=== PATIENT | female | born 1940 | race Caucasian/White ===

== ENCOUNTER → 2022-03-04 12:08 | Outpatient (CLI) | payer MEDICARE, SELFPAY ==
--- NOTE | 2022-03-04 12:40 | XR_ITS ---
FINAL REPORT CLINICAL HISTORY: SOB FINDINGS: Two views of the chest were obtained. The heart size and pulmonary vascularity are within normal limits. The mediastinum is normal. There is mild atelectasis or scarring at the left lung base. There is no pneumothorax. The bony thorax is intact. IMPRESSION: Mild left base atelectasis or scarring. Reviewed, Interpreted and Dictated by Marquise Anders III, MD Transcribed by Tanner Adams Authenticated and [facility]
== END ==
PROVIDERS: PCP Nurse Practitioner Family; Visit Provider Nurse Practitioner Family
DX: R06.02 Shortness of breath (principal)
CPT/HCPCS: 71046

== ENCOUNTER → 2022-03-09 13:12 | Outpatient (CLI) | payer MEDICARE, SELFPAY ==
--- NOTE | 2022-03-09 | CA_ITS ---
APPROVED REPORT EXAM: Comprehensive 2D, Doppler, and color-flow Echocardiogram Medical File Clerk: Sylwia Wyman RVT Ht: 5 ft 0 in Wt: 124lbs BSA: 1.52 BP: 121/69 mmHg Indications: SOA,PALPS,CP,HTN 2D Dimensions LVOT 2.25 cm (M/F) 1.5-2.5 LA Volume 15.10 mL LA Volume Index 9.93 mL/m2 (M/F) 16-34 M-Mode Dimensions RVDd 2.65 cm (0.9-2.6) LA Diam 2.85 cm (1.9-4.0) LVDd 3.68 cm (3.5-5.7) Ao Diam 2.88 cm (2.0-3.7) LVDs 2.61 cm (3.5-5.7) IVSd 0.64 cm (0.6-1.1) PWd 0.46 cm (0.6-1.1) EF (Teich) 56.80% FS 29.10% EDV (Teich) 57.40 mL TAPSE 1.47 (<1.7) ESV (Teich) 24.80 mL LV Diastology E Decel Time 253.00 (160-240 msec) E/A Ratio 0.6 MED E' 4.70 (< 7 cm/sec) E'/MED E' Ratio 12.40 (>14) LAT E' 6.00 (<10 cm/sec) E/LAT E' Ratio 9.72 (>14) Aortic Valve AI PHT 2357.00 ms AO Peak GR. 4.20 mmHg Mitral Valve MV E Max Barry. 58.00 (40-130 cm/s) MV A Velocity 98.00 (40-130 cm/s) E/A Ratio 0.59 MV Decel. Time 253.00 (160-240 ms) MV PHT 74.00 ms Pulmonary Valve PV Peak Velocity 64.00 (50-150 cm/s) Tricuspid Valve TR P. Velocity 230.00 cm/s RAP Estimate 10.00 mmHg RVSP 31.20 mmHg Left Ventricle Left atrium is mildly enlarged, left ventricle is normal size, mild concentric left ventricular hypertrophy, estimated ejection fraction 55% with no regional wall motion abnormality, grade 1 diastolic dysfunction seen without tissue Doppler evidence of raise left atrial pressure. Right Ventricle Right atrium and right ventricle are normal size and contractility. Aortic Valve Aortic valve is minimally thickened and calcified without aortic stenosis, there is mild aortic insufficiency. Mitral Valve Mitral valve is minimally thickened, there is no mitral stenosis, there is mild mitral regurgitation. Tricuspid Valve Tricuspid valve grossly normal, there is mild tricuspid regurgitation, tricuspid regurgitation jet velocity is inadequate for calculation of the right ventricular systolic pressure. Pulmonic Valve Pulmonic valve is minimally fibrosed, there is moderate pulmonic insufficiency. Great Vessels Aortic root is normal size. Inferior vena cava is normal size with normal inspiratory collapse. Pericardium No significant pericardial effusion noted. Conclusion 1. Normal left ventricular size mild concentric left ventricular hypertrophy, estimated ejection fraction 55% with no regional wall motion abnormality, grade 1 diastolic dysfunction seen without tissue Doppler evidence of raise left atrial pressure. 2. Mild aortic, mitral and tricuspid regurgitation. 3. No significant pericardial effusion noted. 4. Inferior vena cava is normal size with normal inspiratory collapse. Electronically signed by : Amaury Morales MD 03/09/2022 19:33:44
== END ==
PROVIDERS: PCP Nurse Practitioner Family; Visit Provider Nurse Practitioner Family
DX: R06.02 Shortness of breath (principal); R60.9 Edema, unspecified
CPT/HCPCS: 93306

== ENCOUNTER → 2022-03-16 13:28 | Outpatient (CLI) | payer MEDICARE, SELFPAY ==
--- NOTE | 2022-03-16 13:34 | XR_ITS ---
FINAL REPORT CLINICAL HISTORY: LT FOOT PAIN FINDINGS: LEFT FOOT: Three views of the left foot were obtained. There is no acute fracture or dislocation. There is moderate hallux valgus deformity. There are multiple hammertoes. There is mild degenerative change. There is no soft tissue abnormality. IMPRESSION: Degenerative change as above with no acute bony abnormality. Reviewed, Interpreted and Dictated by Marquise Anders III, MD Transcribed by Ashley Ely Authenticated and . [facility]
== END ==
PROVIDERS: PCP Nurse Practitioner Family; Visit Provider Nurse Practitioner Family
DX: M79.672 Pain in left foot (principal)
CPT/HCPCS: 73630

== ENCOUNTER → 2022-04-26 13:16 | Outpatient (CLI) | payer MEDICARE, SELFPAY ==
--- NOTE | 2022-04-26 13:18 | US_ITS ---
FINAL REPORT CLINICAL HISTORY: DECREASED PULSES, HTN, bilateral rest pain, bilateral claudication FINDINGS: ANKLE-BRACHIAL PRESSURE INDICES Pressure indices are as follows: RIGHT LOWER EXTREMITY: Ankle-brachial pressure index: 1.1 Comments: Normal LEFT LOWER EXTREMITY: Ankle-brachial pressure index: 1.2 Comments: Normal CONCLUSION: No evidence of significant obstructive peripheral vascular disease of the lower extremities Reviewed, Interpreted and Dictated by Marquise Anders III, MD Transcribed by Ashley Ely Authenticated and [facility]
--- NOTE | 2022-04-26 13:50 | MR_ITS ---
FINAL REPORT CLINICAL HISTORY: Left foot pain, toe pain, gout. REDDNESS AROUND BIG TOE. NO INJURY OR TRAUMA. FINDINGS: Multiplanar MR imaging of the left foot was performed without contrast. There are mild degenerative changes and hallux valgus deformity. There is bone marrow edema in the 1st distal phalanx, favor reactive. There is no marrow replacement to suggest osteomyelitis. There is no fracture. The flexor and extensor tendons are intact. No ligamentous injury is identified. The musculature is intact. The plantar aponeurosis is intact. There is soft tissue edema of the great toe. IMPRESSION: Mild bone marrow edema of the 1st distal phalanx, favor reactive . No marrow replacement to suggest osteomyelitis. Reviewed, Interpreted and Dictated by Marquise Anders III, MD Transcribed by Kira Benavides Authenticated and [facility]
== END ==
PROVIDERS: PCP Nurse Practitioner Family; Visit Provider Podiatrist
DX: R09.89 Other specified symptoms and signs involving the circulatory and respiratory systems (principal); M10.9 Gout, unspecified; M79.675 Pain in left toe(s); M85.89 Other specified disorders of bone density and structure, multiple sites
CPT/HCPCS: 73718; 93923

== ENCOUNTER → 2022-05-03 11:35 | Outpatient (CLI) | payer MEDICARE, SELFPAY ==
--- NOTE | 2022-05-03 11:38 | XR_ITS ---
FINAL REPORT CLINICAL HISTORY: PREOP TESTING for foot surgery COMPARISON: 03/04/2022 FINDINGS: Two views of the chest were obtained. The heart size and pulmonary vascularity are within normal limits. The mediastinum is normal. There is mild left lung base scarring which is stable. There is no pneumothorax. The bony thorax is intact. IMPRESSION: Mild left lung base scarring, stable. Reviewed, Interpreted and Dictated by Marquise Anders III, MD Transcribed by Ashley Ely Authenticated and . [facility]
--- NOTE | 2022-05-03 12:14 | ECG_ITS ---
APPROVED REPORT Exam: Resting ECG HR:53 bpm ECG Measurements Heart Rate 53 AXES IA 192 P 43 QRSd 85 QRS 3 QT 426 T 20 QTc 409 Conclusion SINUS BRADYCARDIA BORDERLINE ECG UNCONFIRMED REPORT Electronically signed by : Prasanna De La Rosa MD 05/04/2022 13:52:56
[2022-05-03 12:31] LABS: Basophils % 0.7 % (0.1-2.0); Eosinophils # 0.1 K/mm3 (0.0-0.4); Eosinophils % 1.7 % (0.1-12.0); Hemoglobin 13.7 g/dL (12.2-16.2); Lymphocytes # 2.1 K/mm3 (0.7-4.5); Lymphocytes % 37.1 % (10-50); Mean Corpuscular HGB Conc 31.8 g/dL (31.8-35.4); Mean Corpuscular Hemoglobin 31.5 pg (27.0-31.2); Mean Corpuscular Volume 99.3 fl (81-99); Mean Platelet Volume 8.3 fl (7.4-10.4); Monocytes # 0.3 K/mm3 (0.1-1.0); Neutrophils # 3.1 K/mm3 (1.8-7.8); Neutrophils % 55.4 % (37.0-80.0); Platelet Count 216 K/mm3 (142-424); Red Blood Count 4.33 M/mm3 (4.20-5.40); Red Cell Distribution Width 13.3 % (11.5-17.5); White Blood Count 5.7 K/mm3 (4.8-10.8)
[2022-05-03 12:56] LABS: Alanine Aminotransferase 13 U/L (12-78); Albumin/Globulin Ratio 1.7 (1.1-1.8); Alkaline Phosphatase 54 U/L (38-126); Anion Gap 9.1 mEq/L (5-15); Aspartate Amino Transferase 24 U/L (14-36); Bilirubin,Total 0.2 mg/dl (0.2-1.3); Blood Urea Nitrogen 11 mg/dl (7-17); Calcium 9.7 mg/dl (8.4-10.2); Carbon Dioxide 28 mmol/L (22.0-30.0); Chloride 107 mmol/L (98-107); Estimated Glomerular Filt Rate 96 ml/min (>60); GFR (African American) 116 ML/MIN (>60); Globulin 2.4 g/dL (1.3-3.2); Glucose 99 mg/dl (74-100); Potassium 4.1 mmoL/L (3.5-5.1); Sodium 140 mmol/L (136-145); Total Protein,Serum 6.4 g/dl (6.3-8.2); Uric Acid 5.2 mg/dl (2.5-6.2)
[2022-05-03 12:57] LABS: Erythrocyte Sedimentation Rate 14 mm/hr (0-30)
[2022-05-03 13:01] LABS: C-Reactive Protein 0.9 mg/L (0-4)
[2022-05-04 12:05] LABS: RA Latex Turbid. <10.0 IU/mL (<14.0)
[2022-05-04 16:12] LABS: Antinuclear Antibodies, IFA Negative (.)
[2022-05-08 19:11] LABS: 1,25 Dihydroxy Vitamin D 35 pg/mL (.); 1,25-Dihydroxy, Vitamin D-2 <10 pg/mL (.); 1,25-Dihydroxy, Vitamin D-3 35 pg/mL (.)
== END ==
PROVIDERS: PCP Physician Assistant; Visit Provider Podiatrist
DX: Z01.818 Encounter for other preprocedural examination (principal); M79.672 Pain in left foot
CPT/HCPCS: 36415; 71046; 80053; 82652; 84550; 85025; 85651; 86038; 86140; 86431; 93005

== ENCOUNTER → 2022-05-26 12:49 | Outpatient (CLI) | payer MEDICARE, SELFPAY | PROVIDERS: PCP Physician Assistant; Visit Provider Podiatrist | DX: Z01.818 Encounter for other preprocedural examination (principal); Z20.822 Contact with and (suspected) exposure to COVID-19 | CPT/HCPCS: C9803; U0003; U0005 ==

== ENCOUNTER 2022-05-27 10:16 | Day surgery (SDC) | payer MEDICARE, SELFPAY ==
[2022-05-25 13:36] VITALS: BMI 24.4
[2022-05-27 11:03] VITALS: BP 151/68; PULSE 62; RESP 16; TEMP 36.1; O2SAT 94
--- NOTE | 2022-05-27 11:41 | EXP.ANES.CKL ---
[facility] Medical History (Updated 05/27/22 @ 10:56 by Gina Streeter, TITO) Cataract GERD (gastroesophageal reflux disease) HLD (hyperlipidemia) HTN (hypertension) Migraine Surgical History History of hysterectomy Family History Other Family history of cancer Family history of hyperlipidemia Social History Smoking Status: Never smoker alcohol intake: never substance use type: denies use current occupational status: retired Travel in the last 8 weeks: None [facility] Anesthesia Checklist Patient Identification Patient Identification: Arm Band Structural Data Admitted From: Home Planned Operative Procedure/s: Left Hallux Exostectomy, Bone BX, Soft tissue BX Consent for Planned Operative Procedure(s) Verified: Yes Verified Documents: Surgical Consent and History and Physical NPO Status Verified Time NPO: 00:00 Additional verifications Anesthesia Reactions: No Hx Blood Transfusions: No Blood Transfusion Reaction: No Airway Assessment C-Spine Mobility Assessed: Yes TMJ Mobility Assessed: Yes Dentition: Poor Dentition Neurological Assessment Level of Consciousness: Awake and Alert Anesthesia Plan Anesthesia Risk discussed: Yes Anesthesia Plan: Verified ASA Class: II Anesthesia Type: MAC
--- NOTE | 2022-05-27 12:55 | EXP.OP.NOTE ---
Date of procedure: 05/27/22 Pre-op Diagnosis:: Left hallux ingrown toenail Left foot exostosis Soft tissue mass left foot Left hallux valgus Post-op Diagnosis:: Same Procedure performed:: Left silver bunionectomy Left hallux exostectomy/partial phalanx resection (45362) Left foot open bone biopsy () Left foot soft tissue biopsy, exc tumor <1.5cm Left total nail avulsion/excision nail matrix (62490) Surgeon:: Fariba Ambrose DPM CAT TENDER:: Other ([place]) Anesthesia: MAC and local (0.5% marcaine plain) Estimated blood loss (mL): 10 Clinical Note:: Patient is an 81-year-old female with pain to the left great toe for over a year.? PCP treatment has included Medication and antibiotics.? Work-up has been negative.? Continues to have pain.? The left hallux did completely come off about a year ago, when pain started.? Pain worse at night when the sheets touch the bed.? Labs, ABIs and MRI negative for osteomyelitis.? Patient has tried and failed all conservative care including RICE protocol, NSAIDs, immobilization in fracture boot, stretching/PT, taping. Patient was able to ambulate without assistance. She has a cane and walker at home. Recommend she use them until she is used to the boot. Continue white foam heel lift to the right side to offset height difference of the boot. After a long discussion with the patient in regards to the conservative versus surgical treatment for the arthritic deformity, the patient has elected to proceed with surgery because they have failed conservative treatment and continue to have pain and worsening symptoms affecting daily activities. Discussed left hallux toenail removal in office vs surgery along with underlying nailbed biopsy and hallux exostectomy/bone biopsy. The patient has been instructed on the planned procedure, all risk versus benefits of the procedure discussed.? These include but are not limited to: bleeding, infection, nerve and blood vessel damage, need for further surgery, delay in healing of soft tissue or bone, failure of bones to heal, non-union, mal-union, failure of the implant, prolonged pain and recovery, CPRS/RSD, DVT and anesthetic complications. No guarantees were given. All questions fully answered. The patient verbalized understanding and agreed to proceed with surgery. Written consent was obtained. Necessary labs and pre-op testing ordered: CBC, CMP, esr, crp, CXR, EKG, covid. Saw PCP, Ashley Camacho for clearance. Operative findings:: Left hallux ingrown with yellow-brown nail dystrophy noted. Under the toenail there was some irregularity and hypertrophic soft tissue of the nailbed. There is a small round mass measuring approximately 0.4 x 0.2cm. No purulence drainage or signs of infection noted. Palpable bone spur noted at the level of the medial HIPJ. Prominent dorsal medial eminence noted on the first met consistent with bunion deformity. Operative note:: On this date and time, patient was deemed an appropriate surgical candidate. With informed consent signed, the patient was taken to the operating theater and positioned supine. MAC anesthesia was induced. Tourniquet was applied to mid calf. The LEFT lower extremity was prepped and draped in normal sterile fashion. The tourniquet was inflated at 225 mmHg. 0.5% Marcaine plain infiltrated around the left forefoot. Left silver bunionectomy: Incision made medial to the first metatarsal head where prominence was noted. Standard dissection with care to maintain surgical stasis safely dry neurovascular structures. Dissection down to the level of the bone. Saw and power rasp used to resect the prominence from the first metatarsal head. Bone was very soft. Wound was flushed with saline. Medial capsulorrhaphy performed which help reduce the bunion deformity. 2-0 Vicryl used to reapproximate deep and subcutaneous tissue. Strata fix used to reapproximate the skin. Left foot open bone biopsy: Incision lengthened. Proximal phalanx and first metatarsal identified.
--- NOTE | 2022-05-27 13:04 | XR_ITS ---
FINAL REPORT CLINICAL HISTORY: Post op bunion, exostectomy COMPARISON: March 16, 2022 FINDINGS: LEFT FOOT: Three views of the left foot were obtained. There is no acute fracture or dislocation. There are postoperative changes in the medial head of the 1st metatarsal. There are mild degenerative changes. There is no soft tissue abnormality. IMPRESSION: Postoperative and degenerative change. Reviewed, Interpreted and Dictated by Marquise Anders III, MD Transcribed by Ashley Ely Authenticated and [facility]
--- NOTE | 2022-05-27 13:53 | XR_ITS ---
FINAL REPORT CLINICAL HISTORY: LEFT HALLUX in or ft: 0:10 FINDINGS: Fluoroscopic guidance was provided for the operating services. A single spot film was provided. 10 seconds of fluoroscopy time was utilized. IMPRESSION: 10 seconds of fluoroscopy time. Reviewed, Interpreted and Dictated by Marquise Anders III, MD Transcribed by Tanner Adams Authenticated and [facility]
[2022-05-27 14:14] VITALS: TEMP 43
[2022-05-27 14:22] VITALS: BP 129/66; PULSE 79; RESP 18; TEMP 36.7; O2SAT 91
--- NOTE | 2022-05-27 14:29 | EXP.ANES.I ---
[facility] Anesthesia Record Part I Anesthesia Record I Intake, IV Amount: 1,000 Estimated blood loss (mL): 10 Urine output (mL): 0 Blood Products used (#): none Blood Pressure: 129/69 SaO2: 91 Pulse Rate: 73 Respiratory Rate: 18 Temperature: 98.2 F Patient is:: Awake and Stable Stable to PACU at:: 14:22
[2022-05-27 14:32] VITALS: BP 129/69; BP 136/75; PULSE 73; PULSE 74; RESP 18; TEMP 36.8; O2SAT 91; O2SAT 94
[2022-05-27 14:42] VITALS: BP 157/79; PULSE 77; RESP 18; O2SAT 95
[2022-05-27 14:50] VITALS: BP 158/68; PULSE 77; RESP 18; O2SAT 95
== END 2022-05-27 14:22 | disposition home or self-care (01) ==
PROVIDERS: PCP Physician Assistant; Visit Provider Podiatrist
PROC: (CPT 11750; principal; 2022-05-27 12:00)
DX: M20.12 Hallux valgus (acquired), left foot (principal); L60.0 Ingrowing nail; M89.8X7 Other specified disorders of bone, ankle and foot; I10 Essential (primary) hypertension; I83.893 Varicose veins of bilateral lower extremities with other complications; M79.89 Other specified soft tissue disorders; M77.52 Other enthesopathy of left foot and ankle; Z79.899 Other long term (current) drug therapy
CPT/HCPCS: 11750; 28043; 28288; 28295; 73620; 73630; 76000; 88304; 88305; 88311; 96374; J2405

== ENCOUNTER → 2022-06-22 13:02 | Outpatient (CLI) | payer MEDICARE, SELFPAY ==
--- NOTE | 2022-06-22 13:08 | XR_ITS ---
FINAL REPORT CLINICAL HISTORY: INFLAMMATION, LOW BACK PAIN, CHRONIC PAIN FINDINGS: SACROILIAC JOINTS Three views demonstrate no acute fracture or dislocation. There are moderate degenerative changes of both SI joints. There is irregularity and sclerosis of the adjacent sacrum and ilium bilaterally. No soft tissue abnormality is seen. IMPRESSION: Moderate degenerative change as above. Reviewed, Interpreted and Dictated by Marquise Anders III, MD Transcribed by Ashley Ely Authenticated and [facility]
== END ==
PROVIDERS: PCP Nurse Practitioner Family; Visit Provider Nurse Practitioner Family
DX: M46.1 Sacroiliitis, not elsewhere classified (principal); M54.50 Low back pain, unspecified; G89.29 Other chronic pain
CPT/HCPCS: 72202

== ENCOUNTER → 2022-07-08 09:58 | Outpatient (POV) | payer MEDICARE, SELFPAY ==
[2022-07-08 11:11] VITALS: BP 199/72; PULSE 75; RESP 18; TEMP 36.3; O2SAT 93; BMI 24.0
--- NOTE | 2022-07-08 11:53 | EXP.PAIN.OV ---
HPI Data of Consult Patient: new to practice Consult date: 07/08/22 Requesting Physician: Jewell Davenport APRN Primary Care Provider: Ashley Camacho APRN Consult Narrative Reason for consult: Low back pain left side History of present illness: Ms. Guerrero is a 81 year old female who presents today as a new patient. She is a referral from Marcy Camacho's office. Today she rates her pain a 10 out of 10. She states her pain is in her low back on the left side. She states this has been going on for over a year and has worsened over time. Patient denies any new trauma or injury. Patient denies any radiating symptoms. Patient states this is a sharp, achy sensation that is worse in the mornings and night. Patient does take [id number] Tylenol but does occasionally help with her symptoms. She also uses heat and ice that provides short-term relief. Patient has not seen physical therapy or chiropractor for this issue. Her Henrique is [phone] with a morphine equivalent of 0. It is been reviewed and appropriate. CC: Jewell Davenport APRN PFSH PFSH Medical History Cataract GERD (gastroesophageal reflux disease) HLD (hyperlipidemia) HTN (hypertension) Migraine Surgical History History of hysterectomy Family History Other Family history of cancer Family history of hyperlipidemia Heart attack Hypertension Stroke Social History (Updated 07/08/22 @ 11:16 by Dana Damon RN) Smoking Status: Never smoker alcohol intake: never substance use type: denies use current occupational status: retired Travel in the last 8 weeks: None Review of Systems Review of Systems Review of systems:: pertinent systems reviewed and negative unless documented below Review of systems (narrative): Review of Systems: General: No recent weight changes, no fever, no sleep disturbances Respiratory: No cough, no shortness of air, no recurring pulmonary infections Cardiovascular/peripheral vascular: No chest pain, no palpitations, no edema, no shortness of breath Gastrointestinal: No new onset incontinence, normal bowel movements reported Genitourinary: No new onset incontinence Musculoskeletal: Low back pain Psychiatric: [Normal mood/affect] Neurological: [Denies weakness in extremities], [denies balance issues] Meds Home Medications and Allergies Home Medications Medication Instructions Recorded Confirmed Type aspirin 81 mg capsule 81 mg PO DAILY Heartburn 04/13/22 07/08/22 History cetirizine 10 mg tablet (All Day 10 mg PO DAILY PRN allergies 04/13/22 07/08/22 History Allergy (cetirizine)) fluticasone propionate 50 1 mcg intranasal DAILY allergies 04/13/22 07/08/22 History mcg/actuation nasal spray,suspension lisinopril 10 mg tablet 10 mg PO DAILY bp 04/13/22 07/08/22 History metoprolol succinate 50 mg 50 mg PO DAILY bp 04/13/22 07/08/22 History tablet,extended release 24 hr omeprazole 40 mg capsule,delayed 40 mg PO DAILY acid ref 04/13/22 07/08/22 History release ondansetron 4 mg disintegrating 4 mg PO Q4HP PRN Nausea And 05/27/22 07/08/22 Rx tablet Vomiting 7 days #30 tabs hydrochlorothiazide 25 mg tablet 25 mg PO DAILY Fluid 06/03/22 07/08/22 History mirtazapine 15 mg tablet 15 mg PO DAILY MOOD 06/03/22 07/08/22 History ropinirole 0.25 mg tablet 0.25 mg PO DAILY RESTLESS LEGS 06/03/22 07/08/22 History mupirocin 2 % topical ointment 1 applic topical BID Skin condition 07/08/22 07/08/22 History New Prescriptions to Start Prescriptions: Allergies Allergy/AdvReac Type Severity Reaction Status Date / Time No Known Allergies Allergy Verified 07/08/22 11:11 Objective Vital signs: Temp Pulse Resp BP Pulse Ox 97.4 F L 75 18 199/72 H 93 L 07/08/22 11:11 07/08/22 11:11 07/08/22 11:11 07/08/22 11:11 07/08/22 11:11 Gio
== END ==
PROVIDERS: PCP Nurse Practitioner Family; Visit Provider Nurse Practitioner Family
DX: M54.50 Low back pain, unspecified (principal); M46.1 Sacroiliitis, not elsewhere classified
CPT/HCPCS: 99202; G0463

== ENCOUNTER 2022-07-20 10:13 | Day surgery (SDC) | payer MEDICARE, SELFPAY ==
[2022-07-20 10:30] VITALS: BP 183/78; PULSE 83; RESP 18; TEMP 36.7; O2SAT 93; BMI 22.8
[2022-07-20 10:43] VITALS: BP 164/64; PULSE 82; RESP 18; O2SAT 97
[2022-07-20 10:44] VITALS: BP 164/64; PULSE 82; RESP 18; O2SAT 98
[2022-07-20 10:47] VITALS: BP 183/74; PULSE 76; RESP 18; O2SAT 94
--- NOTE | 2022-07-20 10:47 | P.PCN_ITS ---
Procedure Date: 07/20/22 Time: 10:47 Anesthesiologist:: Eyal Barney CRNA Complications:: None Pre-procedure Diagnosis:: Sacroiliitis, low back pain Post-procedure Diagnosis:: Same Indications for Procedure:: Patient is a pleasant 81-year-old female who presents today for left SI injection. We are currently treating the patient for low back pain, has left- sided sacroiliitis. Today the patient rates her pain a 5 out of 10. Patient denies any new trauma or injury. Patient does state this is a sharp, achy sensation worse in the mornings and at night. Patient does use [id number] Tylenol as needed. We will proceed forward with her injection at today's visit. Procedure Details:: Informed consent was obtained and the risk and benefits of the procedure were explained to the patient. The patient was taken to the procedure room and placed in prone position. The area over the low back/buttocks was cleansed with chlorhexidine as a cleansing solution. C arm fluoroscopy was used to visualize the left sacroiliac joint. Using a 22-gauge spinal needle the SI joint on the left side was was accessed under fluoroscopic guidance into the inferior aspect. Approximately 9 mL of bupivacaine 0.25% and Depo-Medrol 80 mg was incrementally injected into the left SI joint. Patient tolerated the procedure well with no complications Plan and Disposition:: The patient was monitored in the clinic setting for short period of time following her injection and discharged neurologically intact. We will see the patient back in 2 weeks for reevaluation of symptoms and follow-up. Patient has been counseled to contact the clinic with any questions or concerns before the next appointment date. Dr. Fatima has read this note and agrees with this plan of care. This note was dictated using voice recognition software and may contain errors or omissions.
== END 2022-07-20 10:47 | disposition home or self-care (01) ==
LOC: SC.PAINP 10:15
PROVIDERS: PCP Nurse Practitioner Family; Visit Provider Nurse Anesthetist, Certified Registered
DX: M46.1 Sacroiliitis, not elsewhere classified (principal); M54.50 Low back pain, unspecified
CPT/HCPCS: 27096; G0260; J1040

== ENCOUNTER → 2022-08-09 14:05 | Outpatient (POV) | payer MEDICARE, SELFPAY ==
[2022-08-09 14:15] VITALS: BP 154/71; PULSE 79; RESP 18; O2SAT 97; BMI 23.4
--- NOTE | 2022-08-09 14:25 | A.OFFVIS_ITS ---
[facility] Pain Management SOAP Note Subjective:: Patient is a pleasant 82-year-old female who presents today for follow-up of left SI injection on 07/20/2022. We are currently treating the patient for low back pain, sacroiliitis. Today the patient states she has had at least 90% improvement following this injection and feels like it is still continuing to help. Today her pain is a 3 out of 10. Patient denies any new trauma or injury. Patient denies any change in location or type of pain she experiences. Patient does use [id number] Tylenol as needed that occasionally provide some relief of her symptoms. Patient also uses heat and ice to provide short- term relief. Patient previously had surgery in her left foot by Dr. Ambrose. Patient states she occasionally will have increased pain around her old incision site and does use Voltaren gel. Her Henrique is [phone]. It has been reviewed and appropriate. Review of Systems: General: No recent weight changes, no fever, no sleep disturbances Respiratory: No cough, no shortness of air, no recurring pulmonary infections Cardiovascular/peripheral vascular: No chest pain, no palpitations, no edema, no shortness of breath Gastrointestinal: No new onset incontinence, normal bowel movements reported Genitourinary: No new onset incontinence Musculoskeletal: Low back pain, left foot pain Psychiatric: [Normal mood/affect] Neurological: [Denies weakness in extremities], [denies balance issues] Objective:: Physical Exam: General: Alert and oriented x3, no acute distress, pleasant and cooperative Lungs: Respirations even and unlabored, symmetrical chest expansion Eyes: PERRL Musculoskeletal: Flexion and extension of lumbar [spine] somewhat guarded secondary to pain, [antalgic gait noted] Neurological: Speech clear, no gross sensory deficit Assessment:: Low back pain, sacroiliitis Plan:: Patient has had significant improvement of her pain symptoms following her left SI injection. At this time the patient does not require any additional injective therapy. I will prescribe the patient a compounding cream at today's visit. We will follow-up with the patient in 1 month. Patient will return to clinic for reevaluation of symptoms and follow-up. Patient has been instructed to contact the clinic with any concerns before the next appointment. Dr. Fatima has reviewed this note and agrees with this plan of care. This note was dictated using voice recognition software and make contain errors or omissions. PFSH PFSH Medical History Cataract GERD (gastroesophageal reflux disease) HLD (hyperlipidemia) HTN (hypertension) Migraine Surgical History History of hysterectomy Family History Other Family history of cancer Family history of hyperlipidemia Heart attack Hypertension Stroke Social History Smoking Status: Never smoker alcohol intake: never substance use type: denies use current occupational status: retired Travel in the last 8 weeks: None
== END ==
PROVIDERS: PCP Nurse Practitioner Family; Visit Provider Nurse Practitioner Family
DX: M46.1 Sacroiliitis, not elsewhere classified (principal); M54.50 Low back pain, unspecified
CPT/HCPCS: 99212; G0463

== ENCOUNTER → 2022-09-21 12:23 | Outpatient (CLI) | payer MEDICARE, SELFPAY ==
[2022-09-21 12:54] LABS: Basophils # 0.1 K/mm3 (0-0.2); Basophils % 0.9 % (0.1-2.0); Eosinophils # 0.1 K/mm3 (0.0-0.4); Eosinophils % 1.1 % (0.1-12.0); Hematocrit 44.4 % (37.0-47.0); Hemoglobin 14.2 g/dL (12.2-16.2); Lymphocytes % 38.2 % (10-50); Mean Corpuscular Hemoglobin 31.6 pg (27.0-31.2); Mean Corpuscular Volume 98.8 fl (81-99); Mean Platelet Volume 7.8 fl (7.4-10.4); Monocytes # 0.3 K/mm3 (0.1-1.0); Monocytes % 5.5 % (1.7-9.3); Neutrophils # 2.9 K/mm3 (1.8-7.8); Neutrophils % 54.4 % (37.0-80.0); Platelet Count 240 K/mm3 (142-424); Red Cell Distribution Width 13.8 % (11.5-17.5); White Blood Count 5.3 K/mm3 (4.8-10.8)
[2022-09-21 14:04] LABS: Alanine Aminotransferase 14 U/L (12-78); Albumin Level 4.7 g/dl (3.5-5.0); Albumin/Globulin Ratio 1.8 (1.1-1.8); Alkaline Phosphatase 64 U/L (38-126); Anion Gap 10.2 mEq/L (5-15); Aspartate Amino Transferase 28 U/L (14-36); Bilirubin,Total 0.6 mg/dl (0.2-1.3); Blood Urea Nitrogen 10 mg/dl (7-17); Calcium 9.8 mg/dl (8.4-10.2); Carbon Dioxide 28 mmol/L (22.0-30.0); Chloride 107 mmol/L (98-107); Estimated Glomerular Filt Rate 96 ml/min (>60); GFR (African American) 116 ML/MIN (>60); Globulin 2.6 g/dL (1.3-3.2); Glucose 94 mg/dl (74-100); Magnesium 1.8 mg/dl (1.6-2.3); Potassium 4.2 mmoL/L (3.5-5.1); Sodium 141 mmol/L (136-145); Total Protein,Serum 7.3 g/dl (6.3-8.2)
== END ==
PROVIDERS: PCP Nurse Practitioner Family; Visit Provider Nurse Practitioner Family
DX: I10 Essential (primary) hypertension (principal)
CPT/HCPCS: 36415; 80053; 83735; 84443; 85025

== ENCOUNTER 2023-08-07 17:10 | Observation (INO) | payer MEDICARE, SELFPAY ==
[2023-08-07] VITALS (9 sets, daily range): BP systolic 129–201; BP diastolic 44–88; PULSE 57–74; RESP 16–20; TEMP 36.6–36.7; O2SAT 90–94; BMI 24.0; BMI 23.9
--- NOTE | 2023-08-07 17:35 | CT_ITS ---
PROCEDURE INFORMATION: Exam: CTA Chest With Contrast Exam date and time: 08/07/2023 6:09 PM Age: 83 years old Clinical indication: Pain; Additional info: Trauma, critical injury suspected TECHNIQUE: Imaging protocol: Computed tomographic angiography of the chest with contrast. Exam focused on the arteries. 3D rendering (Not supervised by radiologist): MIP and/or 3D reconstructed images were created by the technologist. Radiation optimization: All CT scans at this facility use at least one of these dose optimization techniques: automated exposure control; mA and/or kV adjustment per patient size (includes targeted exams where dose is matched to clinical indication); or iterative reconstruction. Contrast material: ISOVUE; Contrast volume: 100 ml; Contrast route: INTRAVENOUS (IV); REPORTING DATA: Count of CT and Cardiac NM exams in prior 12 months: This patient has received 0 known CTs and 0 known cardiac nuclear medicine studies in the 12 months prior to the current study. COMPARISON: CR XR CHEST 2V 05/03/2022 11:42 AM FINDINGS: Pulmonary arteries: Normal. No pulmonary emboli. Aorta: Atherosclerosis. 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 Dilated descending thoracic aorta measuring 3 cm anterior-posterior. Lungs: Mild lingular and left lower lobe atelectasis. Pleural spaces: Unremarkable. No pneumothorax. No pleural effusion. Heart: Mild cardiomegaly. Lymph nodes: Unremarkable. No enlarged lymph nodes. Diaphragm: Moderate hiatal hernia. Stomach and bowel: Duodenal diverticulum. Bones/joints: Osteopenia. Multilevel degenerative change of small Schmorl's nodes of the spine. Thoracic spine dextrocurvature. Soft tissues: Unremarkable. IMPRESSION: 1. No acute traumatic findings in the chest. 2. Additional chronic/nonemergent findings as detailed above.
--- NOTE | 2023-08-07 17:35 | CT_ITS ---
PROCEDURE INFORMATION: Exam: CT Lumbar Spine Without Contrast Exam date and time: 08/07/2023 5:58 PM Age: 83 years old Clinical indication: Pain; Additional info: Trauma, critical injury suspected TECHNIQUE: Imaging protocol: Computed tomography of the lumbar spine without contrast. Radiation optimization: All CT scans at this facility use at least one of these dose optimization techniques: automated exposure control; mA and/or kV adjustment per patient size (includes targeted exams where dose is matched to clinical indication); or iterative reconstruction. REPORTING DATA: Count of CT and Cardiac NM exams in prior 12 months: This patient has received 0 known CTs and 0 known cardiac nuclear medicine studies in the 12 months prior to the current study. COMPARISON: CT THORACIC SPINE WO CON 08/07/2023 5:55 PM FINDINGS: Bones/joints: No acute fracture or subluxation. Osteopenia. Degenerative changes of the spine. Lumbar spine levocurvature with the apex at L2/3. Liver: 1 cm right lobe liver cyst. Stomach and bowel: Duodenal diverticulum. Vasculature: Atherosclerosis. Soft tissues: Unremarkable. IMPRESSION: 1. No acute fracture or subluxation. 2. Additional chronic/nonemergent findings as detailed above.
--- NOTE | 2023-08-07 17:35 | XR_ITS ---
PROCEDURE INFORMATION: Exam: XR Left Tibia and Fibula Exam date and time: 08/07/2023 6:23 PM Age: 83 years old Clinical indication: Injury or trauma; Blunt trauma; Patient HX: Left lower leg pain after fall in shower. TECHNIQUE: Imaging protocol: Radiologic exam of the left tibia and fibula. Views: 2 views. COMPARISON: CR XR FOOT LT MIN 3V 05/27/2022 2:26 PM FINDINGS: Bones/joints: No acute fracture or dislocation. Soft tissues: Normal. IMPRESSION: No acute fracture or dislocation.
--- NOTE | 2023-08-07 17:35 | CT_ITS ---
PROCEDURE INFORMATION: Exam: CT Pelvis Without Contrast; Skeletal Exam date and time: 08/07/2023 6:01 PM Age: 83 years old Clinical indication: Pain; Additional info: Trauma, critical injury suspected TECHNIQUE: Imaging protocol: Computed tomography of the pelvis without contrast. Exam focused on the skeleton. Radiation optimization: All CT scans at this facility use at least one of these dose optimization techniques: automated exposure control; mA and/or kV adjustment per patient size (includes targeted exams where dose is matched to clinical indication); or iterative reconstruction. REPORTING DATA: Count of CT and Cardiac NM exams in prior 12 months: This patient has received 0 known CTs and 0 known cardiac nuclear medicine studies in the 12 months prior to the current study. COMPARISON: XR SACROILIAC JOINT BI MIN 3V 06/22/2022 1:11 PM FINDINGS: Limitations: Mild motion artifact. Stomach and bowel: Colonic diverticulosis. No bowel dilation. No bowel wall thickening. Reproductive: Hysterectomy. Vasculature: Atherosclerosis. Bones/joints: No acute fracture or dislocation. Degenerative change of the spine. Degenerative change of the sacroiliac joints. Soft tissues: Unremarkable. IMPRESSION: No acute fracture or dislocation.
--- NOTE | 2023-08-07 17:35 | CT_ITS ---
PROCEDURE INFORMATION: Exam: CTA Abdomen and Pelvis With Contrast Exam date and time: 08/07/2023 6:09 PM Age: 83 years old Clinical indication: Pain; Additional info: Trauma, critical injury suspected TECHNIQUE: Imaging protocol: Computed tomographic angiography of the abdomen and pelvis with contrast. Exam focused on the arteries. 3D rendering (Not supervised by radiologist): MIP and/or 3D reconstructed images were created by the technologist. Radiation optimization: All CT scans at this facility use at least one of these dose optimization techniques: automated exposure control; mA and/or kV adjustment per patient size (includes targeted exams where dose is matched to clinical indication); or iterative reconstruction. Contrast material: ISOVUE; Contrast volume: 100 ml; Contrast route: INTRAVENOUS (IV); REPORTING DATA: Count of CT and Cardiac NM exams in prior 12 months: This patient has received 0 known CTs and 0 known cardiac nuclear medicine studies in the 12 months prior to the current study. COMPARISON: CT BONY PELVIS 08/07/2023 6:01 PM FINDINGS: Aorta: No aortic aneurysm. No aortic dissection. Celiac trunk and mesenteric arteries: No occlusion or significant stenosis. Renal arteries: No occlusion or significant stenosis. Right iliac arteries: No occlusion or significant stenosis. Left iliac arteries: No occlusion or significant stenosis. Other findings: Atherosclerosis. Liver: 1 cm right lobe liver cyst. Calcified liver granulomata. Gallbladder and bile ducts: Stones in the gallbladder. Pancreas: Unremarkable. No mass. No ductal dilation. Spleen: Unremarkable. No splenomegaly. Adrenal glands: Unremarkable. No mass. Kidneys and ureters: Bilateral kidney simple appearing parapelvic cysts with the largest measuring 1.8 x 1.5 x 1 cm. Stomach and bowel: Duodenal diverticulum. Colonic diverticulosis. No bowel dilation. No bowel wall thickening. Appendix: No evidence of appendicitis. Intraperitoneal space: Unremarkable. No free air. No significant fluid collection. Lymph nodes: Unremarkable. No enlarged lymph nodes. Urinary bladder: Unremarkable. No mass. Reproductive: Hysterectomy. Bones/joints: Osteopenia. Degenerative change of the spine. Lumbar levocurvature with apex at L2/3. Degenerative change of the sacroiliac joints. Soft tissues: Unremarkable. IMPRESSION: 1. No acute traumatic findings in the abdomen or pelvis. 2. Additional chronic/nonemergent findings as detailed above.
--- NOTE | 2023-08-07 17:35 | XR_ITS ---
PROCEDURE INFORMATION: Exam: XR Left Knee Exam date and time: 08/07/2023 6:23 PM Age: 83 years old Clinical indication: Injury or trauma; Blunt trauma; Patient HX: Left knee pain due to fall in shower. TECHNIQUE: Imaging protocol: Radiologic exam of the left knee. Views: 3 views. COMPARISON: No relevant prior studies available. FINDINGS: Bones/joints: No acute fracture or dislocation. Soft tissues: Normal. IMPRESSION: No acute fracture or dislocation.
--- NOTE | 2023-08-07 17:35 | CT_ITS ---
PROCEDURE INFORMATION: Exam: CT Head Without Contrast Exam date and time: 08/07/2023 5:51 PM Age: 83 years old Clinical indication: Pain; Headache; Additional info: Trauma, critical injury suspected TECHNIQUE: Imaging protocol: Computed tomography of the head without contrast. Radiation optimization: All CT scans at this facility use at least one of these dose optimization techniques: automated exposure control; mA and/or kV adjustment per patient size (includes targeted exams where dose is matched to clinical indication); or iterative reconstruction. REPORTING DATA: Count of CT and Cardiac NM exams in prior 12 months: This patient has received 0 known CTs and 0 known cardiac nuclear medicine studies in the 12 months prior to the current study. COMPARISON: No relevant prior studies available. FINDINGS: Brain: No intracranial hemorrhage. Mild brain volume loss. Moderate white matter changes typical of hypertension or chronic small vessel ischemia. Cerebral ventricles: No ventriculomegaly. Paranasal sinuses: Visualized sinuses are unremarkable. No fluid levels. Mastoid air cells: Visualized mastoid air cells are well aerated. Bones/joints: Unremarkable. No acute fracture. Soft tissues: Unremarkable. IMPRESSION: No intracranial hemorrhage or acute fracture.
--- NOTE | 2023-08-07 17:35 | CT_ITS ---
PROCEDURE INFORMATION: Exam: CT Cervical Spine Without Contrast Exam date and time: 08/07/2023 5:53 PM Age: 83 years old Clinical indication: Pain; Additional info: Trauma, critical injury suspected TECHNIQUE: Imaging protocol: Computed tomography of the cervical spine without contrast. Radiation optimization: All CT scans at this facility use at least one of these dose optimization techniques: automated exposure control; mA and/or kV adjustment per patient size (includes targeted exams where dose is matched to clinical indication); or iterative reconstruction. REPORTING DATA: Count of CT and Cardiac NM exams in prior 12 months: This patient has received 0 known CTs and 0 known cardiac nuclear medicine studies in the 12 months prior to the current study. COMPARISON: No relevant prior studies available. FINDINGS: Bones/joints: No acute cervical spine fracture. Nonspecific straightening of the cervical lordosis. Grade 1 anterolisthesis of C4 on C5 may be degenerative. Mild degenerative changes of the spine. Lungs: Lung apices are normal. Soft tissues: Unremarkable. IMPRESSION: 1. Nonspecific straightening of the cervical lordosis, which may be secondary to positioning versus muscle spasm. 2. Grade 1 anterolisthesis of C4 on C5 may be degenerative.
--- NOTE | 2023-08-07 17:35 | XR_ITS ---
PROCEDURE INFORMATION: Exam: XR Right Knee Exam date and time: 08/07/2023 6:23 PM Age: 83 years old Clinical indication: Injury or trauma; Fall; Blunt trauma; Patient HX: Patient fell in shower, right knee pain. ; Additional info: Pain, fall TECHNIQUE: Imaging protocol: Radiologic exam of the right knee. Views: 3 views. COMPARISON: No relevant prior studies available. FINDINGS: Bones/joints: No acute fracture or dislocation. Soft tissues: Normal. IMPRESSION: No acute fracture or dislocation.
--- NOTE | 2023-08-07 17:35 | CT_ITS ---
PROCEDURE INFORMATION: Exam: CT Thoracic Spine Without Contrast Exam date and time: 08/07/2023 5:55 PM Age: 83 years old Clinical indication: Pain; Additional info: Trauma, critical injury suspected TECHNIQUE: Imaging protocol: Computed tomography of the thoracic spine without contrast. Radiation optimization: All CT scans at this facility use at least one of these dose optimization techniques: automated exposure control; mA and/or kV adjustment per patient size (includes targeted exams where dose is matched to clinical indication); or iterative reconstruction. REPORTING DATA: Count of CT and Cardiac NM exams in prior 12 months: This patient has received 0 known CTs and 0 known cardiac nuclear medicine studies in the 12 months prior to the current study. COMPARISON: CT CERVICAL SPINE WO CON 08/07/2023 5:53 PM FINDINGS: Bones/joints: No acute fracture or subluxation. Osteopenia. Multilevel degenerative change and small Schmorl's nodes of the spine. Thoracic spine dextrocurvature. Soft tissues: Unremarkable. Vasculature: Atherosclerosis. 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 Dilated descending thoracic aorta measuring 3 cm anterior-posterior. Liver: 1 cm right lobe liver cyst. Stomach and bowel: Duodenal diverticulum. Other findings: Moderate hiatal hernia. IMPRESSION: 1. No acute fracture or subluxation. 2. Additional chronic/nonemergent findings as detailed above.
--- NOTE | 2023-08-07 17:40 | HMH.EDGENADL ---
Discharge Plan Disposition Patient Disposition: Admitted Chief Complaint: Back Pain/Injury Prescriptions Prescriptions: No Action metoprolol succinate 50 mg tablet extended release 24 hr 50 mg PO DAILY aspirin 81 mg capsule 81 mg PO DAILY losartan 25 mg tablet 25 mg PO DAILY Patient Comments: TAKE 1 TABLET BY MOUTH ONCE DAILY Referrals Follow up/Referrals: Provider,Referral, MD [Referring] - See instructions Clinical Impressions Clinical Impression: Blunt trauma, Back pain Discharge ED Provider: Tahir Allred General Adult HPI General Chief complaint: Back Pain/Injury Stated complaint: fall Time Seen by Provider: 08/07/23 17:13 Mode of Arrival: EMS Source of Information: Patient and EMS Limitations: No Limitations Description of Symptoms (Recalled from ER Triage Doc. by RN): pt was in shower at home after getting hair done and she slipped and fell in shower, no loc or down time patient complains of hitting head, neck and back. main source of pain is back.pt was in step in fiberglass shower. per ems no obvious deformities and placed patient in c collar and gave 50 mcg of fentanyl. History of Present Illness HPI narrative: Patient 83-year-old female with no pertinent past medical history presents emergency department for evaluation of traumatic injury sustained in a fall. Patient was in the shower when she fell backwards striking her head and back on the shower wall sliding down to the ground, no LOC, no blood thinners. Patient is complaining of back pain, head pain, neck pain, right knee pain. C-spine precautions initiated prior to arrival. No other acute complaints at this time. Related Data Home Medications Medication Instructions Recorded Confirmed aspirin 81 mg capsule 81 mg PO DAILY Heartburn 04/13/22 08/07/23 metoprolol succinate 50 mg 50 mg PO DAILY bp 04/13/22 08/07/23 tablet,extended release 24 hr losartan 25 mg tablet 25 mg PO DAILY 08/07/23 08/07/23 Allergies Allergy/AdvReac Type Severity Reaction Status Date / Time No Known Allergies Allergy Verified 07/20/22 10:38 [facility] Disclaimer: The information contained in this section may have been updated after the patient was seen, as this information can be updated by other users. Medical History Cataract GERD (gastroesophageal reflux disease) HLD (hyperlipidemia) HTN (hypertension) Migraine Surgical History History of hysterectomy Family History Other Family history of cancer Family history of hyperlipidemia Heart attack Hypertension Stroke Social History Smoking Status: Never smoker alcohol intake: never substance use type: denies use current occupational status: retired Travel in the last 8 weeks: None ROS Obtained: Yes Systems reviewed as appropriate & no additional complaints except as documented Physical Exam General General appearance: alert and in no apparent distress Head Head exam: atraumatic and normocephalic Eye Eye exam: Present PERRL and EOMI ENT ENT exam: Present mucous membranes moist Neck Neck exam: Present normal inspection and tenderness (Midline) Chest Chest inspection: Present normal inspection and symmetric chest wall rise Respiratory Respiratory exam: Present normal lung sounds bilaterally; Absent respiratory distress Cardiovascular Cardiovascular exam: Present regular rate and normal rhythm Abdominal Exam Abdominal exam: Present soft; Absent tenderness Extremities Exam Extremities exam: Present other (Tender right knee, tender left knee, extensor mechanism intact bilaterally. No tenderness over the bilateral upper extremities. Palpable bilateral upper and lower extremity pulses.) Neurological Exam Neurological exam: Present al
[2023-08-07 17:44] LABS: Basophils % 0.4 % (0.1-2.0); Eosinophils # 0.1 K/mm3 (0.0-0.4); Eosinophils % 1.2 % (0.1-12.0); Hematocrit 41.6 % (37.0-47.0); Lymphocytes # 2.5 K/mm3 (0.7-4.5); Lymphocytes % 39.9 % (10-50); Mean Corpuscular HGB Conc 33.6 g/dL (31.8-35.4); Mean Corpuscular Hemoglobin 32.6 pg (27.0-31.2); Mean Corpuscular Volume 96.8 fl (81-99); Monocytes # 0.4 K/mm3 (0.1-1.0); Monocytes % 5.6 % (1.7-9.3); Neutrophils # 3.3 K/mm3 (1.8-7.8); Neutrophils % 52.9 % (37.0-80.0); Platelet Count 189 K/mm3 (142-424); Red Cell Distribution Width 13.6 % (11.5-17.5); White Blood Count 6.2 K/mm3 (4.8-10.8)
[2023-08-07 17:46] LABS: Chloride 104 mmol/L (98-107); Potassium 4.1 mmoL/L (3.5-5.1); Sodium 137 mmol/L (136-145)
[2023-08-07 17:49] LABS: Alanine Aminotransferase 23 U/L (12-78); Albumin Level 4.4 g/dl (3.5-5.0); Albumin/Globulin Ratio 1.6 (1.1-1.8); Alkaline Phosphatase 52 U/L (38-126); Anion Gap 9.1 mEq/L (5-15); Aspartate Amino Transferase 36 U/L (14-36); Bilirubin,Total 0.3 mg/dl (0.2-1.3); Blood Urea Nitrogen 14 mg/dl (7-17); Carbon Dioxide 28 mmol/L (22.0-30.0); Creatinine Clearance Estimated 38 mL/min (50-200); Estimated Glomerular Filt Rate 69 ml/min (>60); GFR (African American) 83 ML/MIN (>60); Globulin 2.8 g/dL (1.3-3.2); Total Protein,Serum 7.2 g/dl (6.3-8.2)
[2023-08-07 17:50] LABS: Calcium 9.2 mg/dl (8.4-10.2); Glucose 112 mg/dl (74-100)
--- NOTE | 2023-08-07 18:08 | PC.NURSE ---
pt in CT
--- NOTE | 2023-08-07 19:13 | PC.NURSE ---
Rounded on pt. No needs voiced at this time. Call light remains within reach.
--- NOTE | 2023-08-07 20:01 | PC.NURSE ---
C-Collar removed per DR. Allred. No complaints at this time.
--- NOTE | 2023-08-07 20:28 | PC.NURSE ---
Patient got up to chair took seven steps and states the pain is too unbearable. complaints of pain in lower back. Patient is up to [facility] requesting more pain medication, MD made aware. New orders received
--- NOTE | 2023-08-07 21:33 | PC.NURSE ---
on phone with hospitalist
--- NOTE | 2023-08-07 21:34 | PC.NURSE ---
housesmith notified of admission
--- NOTE | 2023-08-07 22:09 | ECG_ITS ---
APPROVED REPORT Exam: Resting ECG HR:62 bpm ECG Measurements Heart Rate 62 AXES IL 194 P 67 QRSd 75 QRS 5 QT 421 T 7 QTc 426 Conclusion SINUS RHYTHM NONSPECIFIC T-WAVE ABNORMALITY BORDERLINE ECG UNCONFIRMED REPORT Electronically signed by : Prasanna De La Rosa MD 08/08/2023 17:28:01
--- NOTE | 2023-08-07 22:18 | PC.NURSE ---
pt arrived to the floor via stretcher @22:14
--- NOTE | 2023-08-07 22:36 | EXP.HP ---
History of Present Illness *Admission Date: 08/07/23 *Reason for visit:: back pain after a fall at home *History of present illness: This is a 83-year-old female with PMHx of HTN, on metoprolol, Osteopenia of the spine. chronic back pain who was brought in by EMS after sustained a fall at home while getting shower. Per patient report she was in the shower when she fell backwards striking her head and back on the shower wall sliding down to the ground, no LOC. Patient is not on blood thinners. Patient is complaining of back pain, head pain, neck pain, right knee pain. C-spine precautions initiated during transportation by EMS. No other acute complaints at this time. Admitted for further evaluation and management. [facility] Disclaimer: The information contained in this section may have been updated after the patient was seen, as this information can be updated by other users. Medical History (Updated 08/07/23 @ 23:08 by Harshil Giles APRN) Cataract GERD (gastroesophageal reflux disease) HLD (hyperlipidemia) HTN (hypertension) Surgical History History of hysterectomy Family History Other Family history of cancer Family history of hyperlipidemia Heart attack Hypertension Stroke Social History Smoking Status: Never smoker alcohol intake: never substance use type: denies use current occupational status: retired Travel in the last 8 weeks: None Review of Systems Review of Systems Review of systems:: pertinent systems reviewed and negative unless documented below Meds Home Medications and Allergies Home Medications Medication Instructions Recorded Confirmed Type aspirin 81 mg capsule 81 mg PO DAILY Heart Health 04/13/22 08/07/23 History losartan 25 mg tablet 25 mg PO DAILY High Blood Pressure 08/07/23 08/07/23 History melatonin 5 mg tablet 5 mg PO HSP PRN Insomnia 08/07/23 08/08/23 History acetaminophen 325 mg tablet 650 mg PO Q4HP PRN Fever Or Mild 08/08/23 Rx Pain (1-3) #0 tabs ketorolac 10 mg tablet 10 mg PO Q6HP PRN Moderate To 08/08/23 Rx Severe Pain (4-10) 4 days #16 tabs metoprolol succinate 25 mg 12.5 mg PO DAILY High Blood 08/08/23 08/08/23 Rx tablet,extended release 24 hr Pressure 30 days #0 tabs New Prescriptions to Start Prescriptions: ketorolac Pk Pal Allergies Allergy/AdvReac Type Severity Reaction Status Date / Time No Known Allergies Allergy Verified 07/20/22 10:38 Exam Data for Last 24 hours Vital signs and Labs for Last 24 Hours: Temp Pulse Resp BP Pulse Ox O2 Del Method 97.8 F 57 L 16 131/44 L 90 L Room Air 08/07/23 22:00 08/07/23 22:00 08/07/23 22:00 08/07/23 22:00 08/07/23 22:00 08/07/23 22:00 Laboratory Results - last 24 hr 08/07/23 17:08: WBC 6.2, RBC 4.30, Hgb 14.0, Hct 41.6, MCV 96.8, MCH 32.6 H, MCHC 33.6, RDW 13.6, Plt Count 189, MPV 8.0, Neut % (Auto) 52.9, Lymph % (Auto) 39.9, [place] % (Auto) 5.6, Eos % (Auto) 1.2, Baso % (Auto) 0.4, Neut # (Auto) 3.3, Lymph # (Auto) 2.5, [place] # (Auto) 0.4, Eos # (Auto) 0.1, Baso # (Auto) 0.0, Sodium 137, Potassium 4.1, Chloride 104, Carbon Dioxide 28, Anion Gap 9.1, BUN 14, Creatinine 0.80, Estimated Creat Clear 38, Estimated GFR 69, Est GFR ( Amer) 83, Glucose 112 H, Calcium 9.2, Total Bilirubin 0.3, AST 36, ALT 23, Alkaline Phosphatase 52, Total Protein 7.2, Albumin 4.4, Globulin 2.8, Albumin/Globulin Ratio 1.6 I & O for Last 24 hours: Intake & Output 08/04/23 08/05/23 08/06/23 08/07/23 23:59 23:59 23:59 23:59 Weight 55.384 kg Constitutional Constitutional: moderate distress and cooperative *Routine HEENT Exam Head: Present normocephalic, atraumatic and scalp tenderness Eye: Present EOMI, PERRL and normal accommodation ENT: Present mucous membranes moist *Routine Neck Exam Ne
[2023-08-08] VITALS: BP 131/59; PULSE 60; PULSE 70; RESP 16; TEMP 36.5; O2SAT 92
[2023-08-08 04:00] VITALS: BP 120/51; BP 140/72; BP 142/62; PULSE 60; PULSE 63; RESP 16; TEMP 36.7; O2SAT 96
[2023-08-08 05:39] LABS: Basophils % 0.4 % (0.1-2.0); Eosinophils # 0.1 K/mm3 (0.0-0.4); Hematocrit 38.2 % (37.0-47.0); Lymphocytes # 1.9 K/mm3 (0.7-4.5); Lymphocytes % 33.6 % (10-50); Mean Corpuscular Hemoglobin 32.9 pg (27.0-31.2); Mean Corpuscular Volume 96.8 fl (81-99); Mean Platelet Volume 8.1 fl (7.4-10.4); Monocytes # 0.4 K/mm3 (0.1-1.0); Monocytes % 6.3 % (1.7-9.3); Neutrophils # 3.3 K/mm3 (1.8-7.8); Neutrophils % 58.7 % (37.0-80.0); Platelet Count 162 K/mm3 (142-424); Red Blood Count 3.94 M/mm3 (4.20-5.40); Red Cell Distribution Width 13.4 % (11.5-17.5); White Blood Count 5.6 K/mm3 (4.8-10.8)
[2023-08-08 05:42] LABS: Chloride 103 mmol/L (98-107); Potassium 4.8 mmoL/L (3.5-5.1); Sodium 137 mmol/L (136-145)
[2023-08-08 05:44] LABS: Blood Urea Nitrogen 14 mg/dl (7-17); Creatinine Clearance Estimated 38 mL/min (50-200); Estimated Glomerular Filt Rate 80 ml/min (>60); GFR (African American) 97 ML/MIN (>60)
[2023-08-08 05:45] LABS: Alanine Aminotransferase 18 U/L (12-78); Albumin/Globulin Ratio 1.6 (1.1-1.8); Alkaline Phosphatase 43 U/L (38-126); Anion Gap 7.8 mEq/L (5-15); Aspartate Amino Transferase 31 U/L (14-36); Bilirubin,Total 0.4 mg/dl (0.2-1.3); Calcium 8.9 mg/dl (8.4-10.2); Carbon Dioxide 31 mmol/L (22.0-30.0); Globulin 2.5 g/dL (1.3-3.2); Glucose 106 mg/dl (74-100); Total Protein,Serum 6.5 g/dl (6.3-8.2)
--- NOTE | 2023-08-08 06:37 | PC.NURSE ---
pt had to be placed on 3l/nc. pt sats 82% on room air. pt denies soa. pt sat 93% on 3l/nc
--- NOTE | 2023-08-08 07:38 | HMH.PHAINT1 ---
Pharmacy Intervention Comments: MEDICATION RECONCILIATION COMPLETED ON PATIENT USING EXTERNAL FILL HSITORY FROM PHARMACY. -MARIELLE GODFREY, CHIKID
[2023-08-08 07:58] VITALS: PULSE 60
[2023-08-08 08:00] VITALS: BP 141/76; BP 143/71; BP 149/79; PULSE 62; RESP 16; TEMP 36.6; O2SAT 98
--- NOTE | 2023-08-08 09:53 | SW/DCPLANNER ---
Addendum entered by Tita Maciel 08/08/23 11:49: Trina w/ [facility] stated that services will begin this week for this patient. Addendum entered by Tita Maciel 08/08/23 11:09: Patient information/order has been faxed to [facility]. The patient may discharge home later today. Original Note: I spoke w/ this patient regarding plans once medically stable for discharge. PT/OT evaluated patient and recommended home w/ home health services. Patient stated that she plans to return home w/ her daughter until she is stronger. Patient is agreeable to home health and prefers to use [facility] at time of discharge. I will set up home health once medically stable for discharge. Discharge date is unknown at this time.
--- NOTE | 2023-08-08 10:05 | HMH.OTEV ---
OT Inpatient Evaluation Rehab OT IP Evaluation Start: 08/07/23 22:34 Freq: ONCE Status: Active Protocol: Document 08/08/23 09:56 ROCKJIM (Rec: 08/08/23 10:05 MARY ANN [id number]) Rehab OT IP Assessment Subjective History This is a 83-year-old female with PMHx of HTN, on metoprolol, Osteopenia of the spine. chronic back pain who was brought in by EMS after sustained a fall at home while getting shower. Per patient report she was in the shower when she fell backwards striking her head and back on the shower wall sliding down to the ground, no LOC. Patient is not on blood thinners. Patient is complaining of back pain, head pain, neck pain, right knee pain. C-spine precautions initiated during transportation by EMS. No other acute complaints at this time. Admitted for further evaluation and management. Patient lives alone in 1 story apartment with no GLORIA. Independent with all ADLs and fx'l mobility prior to fall. No hx of falling at home. Has RW/cane at home if needed. Subjective I would like to go to the bathroom. Instructed Patient on safety during transition of bed mobility, transfers, fx'l mobility and toileting. Patient completed all tasks with CGA for safety. No LOB noted. OT provided patient with RW during mobility. Left Patient sitting upright in chair with needs met at end of session. Objective Patient Orientation Person,Place,Name,Age,Year Right Upper Extremity Gross ROM WFL Left Upper Extremity Gross ROM WFL Bed Mobility bed mobility - supine/sit Assist Level Contact Guard/Hand Hold Transfer Training Sit/Stand/Pivot Transfer Chair Transfer Ability Contact Guard/Hand Hold Chair Tr
--- NOTE | 2023-08-08 10:42 | EXP.DC.SUM ---
General Admission date:: 08/07/23 Discharge date: 08/08/23 HPI HPI HPI: This is a 83-year-old female with PMHx of HTN, on metoprolol, Osteopenia of the spine. chronic back pain who was brought in by EMS after sustained a fall at home while getting shower. Per patient report she was in the shower when she fell backwards striking her head and back on the shower wall sliding down to the ground, no LOC. Patient is not on blood thinners. Patient is complaining of back pain, head pain, neck pain, right knee pain. C-spine precautions initiated during transportation by EMS. No other acute complaints at this time. Admitted for further evaluation and management. Hospital Course Hospital Course Hospital Course: 83-year-old female with PMHx of HTN, on metoprolol, Osteopenia of the spine. chronic back pain who was brought in by EMS after sustained a fall at home while getting shower. Per patient report she was in the shower when she fell backwards striking her head and back on the shower wall sliding down to the ground, no LOC. During ER work up patient underwent on head to toe scanning. After reviewing imaging, agreed with radiology that there is not acute fracture or signs of trauma. labs are grossly unremarkable. patient received pain medication IV and topical. On reassessment patient unable to safely ambulate after unsuccessfully many attempts. On assessment patient found on intermittent sinus bradycardia and significantly stressed by pain. Therefore, discussion of findings were made between ER provider and this abstract writer. Agreed for admission. Patient stable overnight. On room air by morning. Pain responding well to Toradol and acetaminophen. PT and OT evaluated, safe to discharge home with family for home health PT/OT. Problems addressed during hospitalization as follows: -Falls at home -Blunt trauma to head - intractable lumbar and cervical pain status post mechanical fall Patient admitted for medical management. Extensive imaging showing no acute fractures. Orthostatic blood pressures stable in the morning. PT and OT evaluated. Safe to discharge home with family. Will refer for home health. Patient is going to go home with her daughter for further assistance. Tolerated pain controlled well with Tylenol, topical lidocaine patches, and Toradol. Plan for close follow-up with PCP in the coming 1 to 2 weeks. Stable to discharge home. HTN: patient with long history of HTN, on metoprolol 25mg daily and low-dose losartan 25 mg daily. Given her low heart rate in the 50s and 60s, will decrease metoprolol to 12.5 mg daily. Blood pressure within acceptable range for age during admission. Spent 35 minutes in discharge counseling, discussion with patient and family, documentation, chart review, and direct care with patient. Exam Data for Last 24 hours Vital signs and Labs for Last 24 Hours: Temp Pulse Resp BP Pulse Ox O2 Del Method O2 Flow Rate 97.9 F 62 16 141/76 H 98 Nasal Cannula 3 08/08/23 08:00 08/08/23 08:00 08/08/23 08:00 08/08/23 08:00 08/08/23 08:00 08/08/23 08:00 08/08/23 08:00 Laboratory Results - last 24 hr 08/07/23 17:08: WBC 6.2, RBC 4.30, Hgb 14.0, Hct 41.6, MCV 96.8, MCH 32.6 H, MCHC 33.6, RDW 13.6, Plt Count 189, MPV 8.0, Neut % (Auto) 52.9, Lymph % (Auto) 39.9, Barren % (Auto) 5.6, Eos % (Auto) 1.2, Baso % (Auto) 0.4, Neut # (Auto) 3.3, Lymph # (Auto) 2.5, Barren # (Auto) 0.4, Eos # (Auto) 0.1, Baso # (Auto) 0.0, Sodium 137, Potassium 4.1, Chloride 104, Carbon Dioxide 28, Anion Gap 9.1, BUN 14, Creatinine 0.80, Estimated Creat Clear 38, Estimated GFR 69, Est GFR ( Amer) 83, Glucose 112 H, Calcium 9.2, Total Bilirubin 0.3, AST 36, ALT 23, Alkaline Phosphatase 52, Total Protein 7.2, Albumin 4.4, Globulin 2.8, Albumin/Globulin Ratio 1.6 08/08/23 05:16: WBC 5.6, RBC 3.94 L, Hgb 13.0, Hct 38.2, MCV 96.8, MCH 32.9 H, MCHC 34.0, RDW 13.4, Plt Count 162, MPV 8.1, Neut % (Auto) 58.7, Lymph % (Auto) 33.6, Barren % (Auto) 6.3, E
[2023-08-08 11:58] VITALS: BP 138/61; PULSE 70; RESP 18; TEMP 36.9; O2SAT 92
--- NOTE | 2023-08-08 11:58 | HMH.PTEV ---
Physical Therapy Evaluation Rehab PT IP Evaluation Start: 08/07/23 22:34 Freq: ONCE Status: Active Protocol: Document 08/08/23 11:16 PHORNE (Rec: 08/08/23 11:58 PHORNE [id number]) Subjective/History History History 83 yowf adm to [facility] after fall at home with increased back pain. She reports she lives alone, no GLORIA the home, and she is generally independent with all mobility without AD. She does have a walker for use at home if needed, Subjective Subjective Currently she presents sitting in bedsdie chair, agrees to mobility assessment. New diagnosis of cancer in past 12 No months? Rehab PT IP Eval Objective Appearance Patient Behavior Appropriate Patient Orientation Person,Place,Time Difficulty following instructions none Speech Pattern Clear Ambulation Patient Able to Ambulate Yes Ambulation Observation IP General Gait Pattern Observation Antalgic Gait Ambulation Distance (feet) 30 Ambulation Assistive Device None Ambulation Ability Contact Guard/Hand Hold Balance Ability to Arise Able, uses arms to help Sitting Balance Steady, safe Standing Balance Steady, wide stance Dynamic Sitting Balance Ability Good Dynamic Standing Balance Ability Good Transfers Chair Transfer Ability Contact Guard/Hand Hold Sit to Stand Bed Transfer Ability Contact Guard/Hand Hold Sit to Stand Chair Transfer Ability Contact Guard/Hand Hold ROM All Extremities PT ROM Status WFL MMT All Extremities PT MMT WFL Rehab PT IP prob,goals,plan Problems Date of Evaluation: 08/08/23 PT IP Problems Bed Mobility,Transfers,Gait Rehab Potential Rehab Potential Good Plan PT Intervention Plan Bed Mobility,Transfers,Gait, Therapeutic Exercise PT Plan Frequency Daily Duration LOS Discharge Goals Bed Transfer Ability Supervision/Stand by Sit to Stand Chair Transfer Ability Supervision/Stand by Ambulation Assistive Device Rolling Walker Ambulation Distance (feet) 40 Discharge Plan PT Discharge Plan Pt is appropriate to return home once medically stable for d/c. Recommend Home Health therapy services one d/c. Eval Complexity Eval Charge Codes 11381 - High Complexity
[2023-08-08 12:00] VITALS: PULSE 70
--- NOTE | 2023-08-08 13:17 | ECG_ITS ---
APPROVED REPORT Exam: Resting ECG HR:67 bpm ECG Measurements Heart Rate 67 AXES PA 216 P 26 QRSd 86 QRS -2 QT 411 T 17 QTc 426 Conclusion SINUS RHYTHM WITH FIRST DEGREE AV BLOCK MINIMAL VOLTAGE CRITERIA FOR LVH, CONSIDER NORMAL VARIANT [MEETS CRITERIA IN ONE OF: R(aVL), S(V1), R(V5), R(V5/V6)+S(V1)] NONSPECIFIC T-WAVE ABNORMALITY ABNORMAL ECG UNCONFIRMED REPORT Electronically signed by : Prasanna De La Rosa MD 08/10/2023 17:14:41
--- NOTE | 2023-08-08 22:30 | CA_ITS ---
APPROVED REPORT EXAM: Comprehensive 2D, Doppler, and color-flow Echocardiogram Income Auditor: Deja Balderas CRT Ht: 5 ft 0 in Wt: 123lbs BSA: 1.52 BP: 154/54 mmHg Indications: Hyperlipidemia, Hypertension/HDD, SINUS ALEXANDRE 2D Dimensions LVOT 1.76 cm (M/F) 1.5-2.5 LA Volume 33.60 mL LA Volume Index 21.70 mL/m2 (M/F) 16-34 M-Mode Dimensions RVDd 2.62 cm (0.9-2.6) LA Diam 2.51 cm (1.9-4.0) LVDd 4.01 cm (3.5-5.7) Ao Diam 3.85 cm (2.0-3.7) LVDs 2.27 cm (3.5-5.7) IVSd 1.74 cm (0.6-1.1) PWd 0.70 cm (0.6-1.1) EF (Teich) 75.10% FS 43.40% EDV (Teich) 70.40 mL TAPSE 2.32 (<1.7) ESV (Teich) 17.50 mL LV Diastology E Decel Time 230.00 (160-240 msec) E/A Ratio 0.61 MED E' 3.40 (< 7 cm/sec) MED A' 9.60 cm/s E'/MED E' Ratio 17.53 (>14) LAT E' 6.50 (<10 cm/sec) LAT A' 7.80 cm/s E/LAT E' Ratio 9.17 (>14) Aortic Valve AI PHT 726.00 ms Mitral Valve MV A Velocity 98.00 (40-130 cm/s) E/A Ratio 0.61 MV Decel. Time 230.00 (160-240 ms) Pulmonary Valve PV Peak Velocity 166.00 (50-150 cm/s) Tricuspid Valve TR P. Velocity 265.00 cm/s RAP Estimate 10.00 mmHg RVSP 38.10 mmHg Left Ventricle The left ventricle is normal size. The left ventricular systolic function is normal. The left ventricular ejection fraction is within the normal range. Proximal septal thickening is noted. There is normal LV segmental wall motion. The left ventricular diastolic function is normal. LVEF is 60%. Right Ventricle The right ventricle is normal size. The right ventricular systolic function is normal. Atria The left atrium size is normal. The right atrium size is normal. There is no Doppler evidence of interatrial shunt. Aortic Valve The aortic valve is trileaflet. The aortic valve is mildly thickened. There is no aortic valvular stenosis. Mild aortic regurgitation. Mitral Valve The mitral valve leaflets are mildly thickened. No evidence of mitral valve stenosis. Mild mitral regurgitation. Tricuspid Valve The tricuspid valve leaflets are thin and pliable. Mild tricuspid regurgitation. RVSP is 20-25 mmHg. Pulmonic Valve The pulmonary valve is normal in structure. Trace pulmonic regurgitation. Great Vessels The aortic root is normal in size. The ascending aorta is mildly dilated measuring 4.3 cm in diameter. IVC is normal in size and collapses >50% with inspiration. Pericardium There is no pericardial effusion. Other Information Study Quality: Fair Conclusion Normal biventricular systolic function. Mild AI. Mildly dilated ascending aorta measuring 4.3 cm in diameter. Follow-up for dilated ascending aorta is recommended with serial TTE. Electronically signed by : Ericka Ni MD 08/08/2023 20:19:55
--- NOTE | 2023-08-08 22:30 | CA_ITS ---
FINAL REPORT TECHNIQUE: Color Doppler, duplex Doppler and frank scale sonography of the bilateral neck arterial vasculature was performed. Velocities were measured in the carotid arteries. Stenosis evaluation based on the validated velocity criteria. CLINICAL HISTORY: fall at home, HTN, HLD FINDINGS: The peak systolic velocity of the right common carotid artery is 60 cm/s. The peak systolic velocity of the right internal carotid artery is 71cm/s and end diastolic velocity 20.3 cm/s. A small amount of plaque is present. The right external carotid artery is patent. The right vertebral artery is patent with antegrade flow. The peak systolic velocity of the left common carotid artery is 64 cm/s. The peak systolic velocity of the left internal carotid artery is 78 cm/s and end diastolic velocity 21 cm/s. A small amount of plaque is present. The left external carotid artery is patent.The left vertebral artery is patent with antegrade flow. IMPRESSION: Less than 50% bilateral carotid stenoses. Bilateral patent vertebral arteries with antegrade flow. If indicated, CTA or MRA could further evaluate. Reviewed, Interpreted and Dictated by Marquise Anders III, MD Transcribed by Kira Benavides Authenticated and [facility]
--- NOTE | 2023-08-09 15:26 | CARE MANAGER ---
Contacted patient related to hospital discharge. She states she feels worse today, but is taking medication as directed. Denies questions or concerns at this time. Aware of follow up appointment.
--- NOTE | 2023-08-16 05:25 | PC.NURSE ---
pt. chart accessed for face sheet for EMS
== END 2023-08-08 15:00 | disposition home health service (06) ==
LOC: ER 21:36 → 2ND 21:45
PROVIDERS: Nurse Practitioner Family; Admitting Provider Internal Medicine; Emergency Provider Emergency Medicine; PCP Internal Medicine Adolescent Medicine; Visit Provider Internal Medicine
DX: M54.50 Low back pain, unspecified (principal); M54.9 Dorsalgia, unspecified; T14.90XA Injury, unspecified, initial encounter; I10 Essential (primary) hypertension; K21.9 Gastro-esophageal reflux disease without esophagitis; E78.5 Hyperlipidemia, unspecified; I65.23 Occlusion and stenosis of bilateral carotid arteries; W18.2XXA Fall in (into) shower or empty bathtub, initial encounter; Y92.012 Bathroom of single-family (private) house as the place of occurrence of the external cause; M85.88 Other specified disorders of bone density and structure, other site; S00.83XA Contusion of other part of head, initial encounter; Z79.899 Other long term (current) drug therapy
CPT/HCPCS: 36415; 70450; 71275; 72125; 72128; 72131; 72192; 73562; 73590; 74174; 80053; 85025; 93005; 93306; 93880; 97116; 97163; 97165; 97530; 99285; G0378; J0131; J2405; Q9967

== ENCOUNTER 2023-09-28 13:00 | Emergency (ER) | payer MEDICARE, SELFPAY ==
[2023-09-28] VITALS (8 sets, daily range): BP systolic 106–140; BP diastolic 47–71; PULSE 84–106; RESP 16–22; TEMP 36.7; O2SAT 94–100; BMI 21.6
--- NOTE | 2023-09-28 | ECG_ITS ---
APPROVED REPORT Exam: Resting ECG HR:91 bpm ECG Measurements Heart Rate 91 AXES AZ 183 P 60 QRSd 73 QRS 32 QT 320 T 61 QTc 368 Conclusion SINUS RHYTHM NONSPECIFIC T-WAVE ABNORMALITY BORDERLINE ECG UNCONFIRMED REPORT Electronically signed by : Prasanna De La Rosa MD 09/29/2023 20:11:21
--- NOTE | 2023-09-28 13:48 | CT_ITS ---
FINAL REPORT CLINICAL HISTORY: soa tachyacrdia, leg swelling COMPARISON: 08/07/2023 FINDINGS: Thin section axial CT images of the chest were obtained with contrast. 3D reformatted images were also obtained. This study was performed with techniques to keep radiation doses as low as reasonably achievable (ALARA). Individualized dose reduction techniques using automated exposure control or adjustment of mA and/or kV according to the patient''s size were employed. There is no evidence of pulmonary embolism. There is no evidence of thoracic aortic aneurysm or dissection. There is no evidence of mediastinal or hilar mass or adenopathy. There is no evidence of pulmonary mass or nodule. There is mild bibasilar atelectasis. 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 There is a moderate hiatal hernia. There is a moderate chronic T12 compression fracture. IMPRESSION: No evidence of pulmonary embolism or dissection. Reviewed, Interpreted and Dictated by Marquise Anders III, MD Transcribed by Ana Lilia Sanchez Authenticated and [facility]
[2023-09-28 14:00] LABS: Chloride 104 mmol/L (98-107); Sodium 140 mmol/L (136-145)
[2023-09-28 14:01] LABS: Potassium 3.6 mmoL/L (3.5-5.1)
[2023-09-28 14:03] LABS: Alanine Aminotransferase 28 U/L (12-78); Albumin Level 4.5 g/dl (3.5-5.0); Albumin/Globulin Ratio 1.6 (1.1-1.8); Alkaline Phosphatase 74 U/L (38-126); Anion Gap 17.6 mEq/L (5-15); Aspartate Amino Transferase 42 U/L (14-36); Bilirubin,Total 0.8 mg/dl (0.2-1.3); Blood Urea Nitrogen 17 mg/dl (7-17); Carbon Dioxide 22 mmol/L (22.0-30.0); Creatinine Clearance Estimated 40 mL/min (50-200); Estimated Glomerular Filt Rate 69 ml/min (>60); GFR (African American) 83 ML/MIN (>60); Globulin 2.9 g/dL (1.3-3.2); Total Protein,Serum 7.4 g/dl (6.3-8.2)
[2023-09-28 14:04] LABS: Calcium 10.2 mg/dl (8.4-10.2); Glucose 125 mg/dl (74-100)
[2023-09-28 14:10] LABS: Basophils # 0.1 K/mm3 (0-0.2); Basophils % 0.7 % (0.1-2.0); Eosinophils % 0.6 % (0.1-12.0); Hematocrit 43.2 % (37.0-47.0); Hemoglobin 14.4 g/dL (12.2-16.2); Lymphocytes # 2.3 K/mm3 (0.7-4.5); Lymphocytes % 35.2 % (10-50); Mean Corpuscular HGB Conc 33.4 g/dL (31.8-35.4); Mean Corpuscular Volume 95.8 fl (81-99); Mean Platelet Volume 8.5 fl (7.4-10.4); Monocytes # 0.4 K/mm3 (0.1-1.0); Monocytes % 5.9 % (1.7-9.3); Neutrophils # 3.8 K/mm3 (1.8-7.8); Neutrophils % 57.6 % (37.0-80.0); Platelet Count 201 K/mm3 (142-424); Red Blood Count 4.51 M/mm3 (4.20-5.40); Red Cell Distribution Width 13.1 % (11.5-17.5); White Blood Count 6.6 K/mm3 (4.8-10.8)
[2023-09-28 14:12] LABS: NT Pro Brain Natriuretic Pep. 196 pg/mL (0-450)
[2023-09-28 14:22] LABS: T4 (Thyroxine) 13.9 ug/dl (5.53-11.0)
[2023-09-28 14:27] LABS: Troponin I < 0.01 ng/ml (0.00-0.034)
[2023-09-28 14:34] LABS: Thyroid Stimulating Hormone 1.83 uIU/mL (0.465-4.68)
--- NOTE | 2023-09-28 14:39 | ED_ITS ---
Discharge Plan Disposition Patient Disposition: Home, Self-Care Condition: Good Prescriptions Prescriptions: No Action aspirin 81 mg capsule 81 mg PO DAILY losartan 25 mg tablet 25 mg PO DAILY Patient Comments: TAKE 1 TABLET BY MOUTH ONCE DAILY melatonin 5 mg Tablet 5 mg PO HSP PRN (Reason: Insomnia) ketorolac 10 mg tablet 10 mg PO Q6HP PRN (Reason: Moderate To Severe Pain (4-10)) 4 Days Qty: 16 0RF Rx Instructions: tolerated during admission with no side effects acetaminophen 325 mg Tablet 650 mg PO Q4HP PRN (Reason: Fever Or Mild Pain (1-3)) Qty: 0 0RF metoprolol succinate 25 mg tablet extended release 24 hr 12.5 mg PO DAILY 30 Days Qty: 0 0RF Patient Comments: TAKE 1 TABLET BY MOUTH ONCE DAILY Referrals Follow up/Referrals: Prasanna De La Rosa MD [Primary Care Provider] - See instructions Clinical Impressions Clinical Impression: Shortness of breath Instructions Patient Instructions: DI for Shortness of Breath Discharge ED Provider: Colleen Berrios HPI <Harry Braga MD - Last Filed: 09/28/23 15:45> General Chief Complaint: Shortness of Breath/Dyspnea Stated Complaint: tests per Dr. De La Rosa Time Seen by Provider: 09/28/23 13:04 Mode of Arrival: Wheelchair Source of Information: Patient and Relative Limitations: No Limitations Description of Symptoms (Recalled from ER Triage Doc. by RN): pt presents to ED from dr lee office for further workup. pt reports she was being seen in [facility] for 1 month follow up from d/c from [facility]. pt states she has been short of air and had a cough for the past 3 days. History of Present Illness HPI narrative: Patient is 83 years old history of hypertension, hyperlipidemia presenting from primary care doctor's for this out of concern for shortness of breath. Patient was discharged from [facility] about a month ago, she is following up today. Patient states that she has had swelling in her left leg and started feeling short of breath with minimal exertion. Saw her primary care doctor today and he was worried about pulmonary embolus, so sent her to the emergency department. Patient denies cough, nausea, vomiting, fevers or chills, or any other concerns. Related Data Home Medications Medication Instructions Recorded Confirmed aspirin 81 mg capsule 81 mg PO DAILY [facility] 04/13/22 08/07/23 losartan 25 mg tablet 25 mg PO DAILY High Blood Pressure 08/07/23 08/07/23 melatonin 5 mg tablet 5 mg PO HSP PRN Insomnia 08/07/23 08/08/23 Previous Rx's Medication Instructions Recorded acetaminophen 325 mg tablet 650 mg PO Q4HP PRN Fever Or Mild 08/08/23 Pain (1-3) #0 tabs ketorolac 10 mg tablet 10 mg PO Q6HP PRN Moderate To 08/08/23 Severe Pain (4-10) 4 days #16 tabs metoprolol succinate 25 mg 12.5 mg PO DAILY High Blood 08/08/23 tablet,extended release 24 hr Pressure 30 days #0 tabs Allergies Allergy/AdvReac Type Severity Reaction Status Date / Time No Known Allergies Allergy Verified 07/20/22 10:38 [facility] <Harry Braga MD - Last Filed: 09/28/23 15:45> [facility] Disclaimer: The information contained in this section may have been updated after the patient was seen, as this information can be updated by other users. Medical History (Updated 09/28/23 @ 16:09 by Colleen Berrios MD) Cataract GERD (gastroesophageal reflux disease) HLD (hyperlipidemia) HTN (hypertension) Surgical History (Updated 08/12/23 @ 00:00 by Cari Bernabe) History of hysterectomy Status post bunionectomy Status post surgical removal of nail matrix of toe of left foot Family History Other Family history of cancer Family history of hyperlipidemia Heart attack Hypertension Stroke Social History Smoking Status: Never smoker alcohol intake: never substance use type: denies use current occupational status: retired Travel in the last 8 weeks: None <Harry Braga MD - Last Filed: 09/28/23 15:45> ROS Obtained: Yes All systems reviewed & no additional complaints except as documented Physical Exam <Harry Braga MD - Last Filed: 09/28/23 15:45> General General appearance: alert Neck Neck exam: Present trachea midline Chest Chest inspection: Present normal inspection and symmetric chest wall rise Respiratory Respiratory exam: Present normal lung sounds bilaterally; Absent respiratory distress, wheezes, stridor, accessory muscle use or prolonged expiratory phase Cardiovascular Cardiovascular exam: Present regular rate and normal rhythm Extremities Exam Extremities exam: Absent edema Neurological Exam Neurological exam: Present alert, oriented X3 and CN II-XII intact Skin Skin exam: Present warm and dry; Absent cyanosis, diaphoresis or pallor HEART Score <Harry Braga MD - Last Filed: 09/28/23 15:45> HEART Score HEART Score assessment performed?: Yes History (anamnesis): Slightly suspicious ECG: Non-specific disturbance Age: >65 years Risk factors: 1-2 risk factors Troponin: </= normal limit HEART Score: 4 <Colleen Berrios MD - Last Filed: 09/28/23 16:50> HEART Score HEART Score: 4 Critical Care <Harry Braga MD - Last Filed: 09/28/23 15:45> Critical Care Time Critical Care Time: No Medical Decision Making <Harry Braga MD - Last Filed: 09/28/23 15:45> Medical Records Medical records reviewed: Yes I reviewed the patient's medical records. Henrique Inquiry Pt receiving controlled substance: No Henrique was queried for this patient: No Vital Signs Vital Signs: 09/28/23 13:01 09/28/23 13:30 09/28/23 14:01 Temperature 98.0 F Temperature Source Oral Pulse Rate 90 96 H Pulse Rate [Left Radial] 92 H Respiratory Rate 22 Blood Pressure 115/57 L 107/53 L Blood Pressure [Right Arm] 116/58 L Blood Pressure Mean 74 Blood Pressure Mean [Right Arm] 77 02 Sat by Pulse Oximetry 96 99 100 Oxygen Delivery Method Room Air 09/28/23 14:30 09/28/23 15:00 09/28/23 15:30 Temperature Temperature Source Pulse Rate 93 H 85 85 Pulse Rate [Left Radial] Respiratory Rate Blood Pressure 130/47 L 109/58 L 109/50 L Blood Pressure [Right Arm] Blood Pressure Mean 74 77 67 Blood Pressure Mean [Right Arm] 02 Sat by Pulse Oximetry 100 94 L 99 Oxygen Delivery Method 09/28/23 16:00 Temperature Temperature Source Pulse Rate 84 Pulse Rate [Left Radial] Respiratory Rate Blood Pressure 106/55 L Blood Pressure [Right Arm] Blood Pressure Mean Blood Pressure Mean [Right Arm] 02 Sat by Pulse Oximetry 99 Oxygen Delivery Method Room Air Lab Data Labs: Lab Results 09/28/23 13:18: WBC 6.6, RBC 4.51, Hgb 14.4, Hct 43.2, MCV 95.8, MCH 32.0 H, MCHC 33.4, RDW 13.1, Plt Count 201, MPV 8.5, Neut % (Auto) 57.6, Lymph % (Auto) 35.2, Calloway % (Auto) 5.9, Eos % (Auto) 0.6, Baso % (Auto) 0.7, Neut # (Auto) 3.8, Lymph # (Auto) 2.3, Calloway # (Auto) 0.4, Eos # (Auto) 0.0, Baso # (Auto) 0.1, Sodium 140, Potassium 3.6, Chloride 104, Carbon Dioxide 22, Anion Gap 17.6 H, BUN 17, Creatinine 0.80, Estimated Creat Clear 40, Estimated GFR 69, Est GFR ( Amer) 83, Glucose 125 H, Calcium 10.2, Total Bilirubin 0.8, AST 42 H, ALT 28, Alkaline Phosphatase 74, Troponin I < 0.01, NT-Pro-B Natriuret Pep 196, Total Protein 7.4, Albumin 4.5, Globulin 2.9, Albumin/Globulin Ratio 1.6, TSH 1.83, Thyroxine (T4) 13.9 H 09/28/23 16:10: Troponin I < 0.01 09/28/23 13:18 09/28/23 13:18 Response Orders (Tests/Meds): ED MEDICATIONS Discontinued Medications Generic Name Dose Route Start Last Admin Trade Name Taniq PRN Reason Stop Dose Admin Sodium Chloride 1,000 mls @ 999 mls/hr 09/28/23 15:35 09/28/23 15:57 Sod Chlor 0.9% 1000ml Bag IV 09/28/23 16:35 999 mls/hr .Q1H1M ONE Administration Iopamidol 70 ml 09/28/23 14:42 09/28/23 14:43 Iopamidol-370 (76%);100ml Bottle IV 09/28/23 14:43 70 ml ONCE ONE Administration Sodium Chloride 40 ml 09/28/23 14:42 09/28/23 14:43 0.9 % Sodium Chloride 50 Ml Vial IV 09/28/23 14:43 40 ml ONCE ONE Administration Sodium Chloride 10 ml 09/28/23 14:42 09/28/23 14:43 Sodium Chloride 0.9% 10ml Syr (Rad Only) IV 09/28/23 14:43 10 ml ONCE ONE Administration ORDERS Category Date Time Status CT angio chest PE protocol Stat Cat Scan 09/28/23 13:48 Completed Brain Natriuretic Peptide Stat Lab 09/28/23 13:18 Completed CBC w/Auto Diff [Complete Blood Count Auto Diff] Stat Lab 09/28/23 13:18 Completed Comprehensive Metabolic Panel Stat Lab 09/28/23 13:18 Completed T4 (Thyroxine) Stat Lab 09/28/23 13:18 Completed TSH [Thyroid Stimulating Hormone] Stat Lab 09/28/23 13:18 Completed Troponin I Q3H Lab 09/28/23 16:10 Completed Troponin I Q3H Lab 09/28/23 20:00 Ordered Troponin I Stat Lab 09/28/23 13:18 Completed ECG initial Besson Routine Y 09/28/23 Completed MDM Narrative Medical Decision Narrative: Patient is 83 years old history of hypertension, hyperlipidemia presenting from primary care doctor's for this out of concern for shortness of breath. Patient was discharged from [facility] about a month ago, she is following up today. Patient states that she has had swelling in her left leg and started feeling short of breath with minimal exertion. Saw her primary care doctor today and he was worried about pulmonary embolus, so sent her to the emergency department. Patient denies cough, nausea, vomiting, fevers or chills, or any other concerns. History was obtained via conversation with patient and daughter. On arrival, patient hemodynamically stable, alert, oriented x4, appropriate, GCS 15, moving all extremities spontaneously, pupils equal and reactive to light. Full physical exam performed and significant for mildly tachypneic patient 22 to 25 breaths/min. Lungs clear to auscultation bilaterally. Normotensive, nontachycardic, overall well-appearing. Nonpitting lower extremity edema. Differential includes pneumonia, bronchitis, PE, pneumothorax, metabolic, endocrinologic, dehydration, among others. Patient was given saline bolus for symptomatic management saline bolus. Workup independently interpreted and significant for nonactionable CBC or chemistry. Initial troponin negative. Thyroid studies nonactionable.. See radiology read for full review of final results. Independent interpretation of EKG shows sinus rhythm [address] or T wave changes concerning for acute ischemia. Intervals within normal notes. Patient was placed in observation beginning at 1:15 PM in order to obtain CT PE and delta troponin and determine need for admission versus home-going. The patient was provided fluids, serial exams, cardiac monitoring while awaiting results. Prior to CT PE and final troponin, care handed off to oncoming physician. <Colleen Berrios MD - Last Filed: 09/28/23 16:50> Vital Signs Vital Signs: 09/28/23 13:01 09/28/23 13:30 09/28/23 14:01 Temperature 98.0 F Temperature Source Oral Pulse Rate 90 96 H Pulse Rate [Left Radial] 92 H Respiratory Rate 22 Blood Pressure 115/57 L 107/53 L Blood Pressure [Right Arm] 116/58 L Blood Pressure Mean 74 Blood Pressure Mean [Right Arm] 77 02 Sat by Pulse Oximetry 96 99 100 Oxygen Delivery Method Room Air 09/28/23 14:30 09/28/23 15:00 09/28/23 15:30 Temperature Temperature Source Pulse Rate 93 H 85 85 Pulse Rate [Left Radial] Respiratory Rate Blood Pressure 130/47 L 109/58 L 109/50 L Blood Pressure [Right Arm] Blood Pressure Mean 74 77 67 Blood Pressure Mean [Right Arm] 02 Sat by Pulse Oximetry 100 94 L 99 Oxygen Delivery Method 09/28/23 16:00 Temperature Temperature Source Pulse Rate 84 Pulse Rate [Left Radial] Respiratory Rate Blood Pressure 106/55 L Blood Pressure [Right Arm] Blood Pressure Mean Blood Pressure Mean [Right Arm] 02 Sat by Pulse Oximetry 99 Oxygen Delivery Method Room Air Lab Data Labs: Lab Results 09/28/23 13:18: WBC 6.6, RBC 4.51, Hgb 14.4, Hct 43.2, MCV 95.8, MCH 32.0 H, MCHC 33.4, RDW 13.1, Plt Count 201, MPV 8.5, Neut % (Auto) 57.6, Lymph % (Auto) 35.2, Calloway % (Auto) 5.9, Eos % (Auto) 0.6, Baso % (Auto) 0.7, Neut # (Auto) 3.8, Lymph # (Auto) 2.3, Calloway # (Auto) 0.4, Eos # (Auto) 0.0, Baso # (Auto) 0.1, Sodium 140, Potassium 3.6, Chloride 104, Carbon Dioxide 22, Anion Gap 17.6 H, BUN 17, Creatinine 0.80, Estimated Creat Clear 40, Estimated GFR 69, Est GFR ( Amer) 83, Glucose 125 H, Calcium 10.2, Total Bilirubin 0.8, AST 42 H, ALT 28, Alkaline Phosphatase 74, Troponin I < 0.01, NT-Pro-B Natriuret Pep 196, Total Protein 7.4, Albumin 4.5, Globulin 2.9, Albumin/Globulin Ratio 1.6, TSH 1.83, Thyroxine (T4) 13.9 H 09/28/23 16:10: Troponin I < 0.01 Response Orders (Tests/Meds): ED MEDICATIONS Discontinued Medications Generic Name Dose Route Start Last Admin Trade Name Freq PRN Reason Stop Dose Admin Sodium Chloride 1,000 mls @ 999 mls/hr 09/28/23 15:35 09/28/23 15:57 Sod Chlor 0.9% 1000ml Bag IV 09/28/23 16:35 999 mls/hr .Q1H1M ONE Administration Iopamidol 70 ml 09/28/23 14:42 09/28/23 14:43 Iopamidol-370 (76%);100ml Bottle IV 09/28/23 14:43 70 ml ONCE ONE Administration Sodium Chloride 40 ml 09/28/23 14:42 09/28/23 14:43 0.9 % Sodium Chloride 50 Ml Vial IV 09/28/23 14:43 40 ml ONCE ONE Administration Sodium Chloride 10 ml 09/28/23 14:42 09/28/23 14:43 Sodium Chloride 0.9% 10ml Syr (Rad Only) IV 09/28/23 14:43 10 ml ONCE ONE Administration ORDERS Category Date Time Status CT angio chest PE protocol Stat Cat Scan 09/28/23 13:48 Completed Brain Natriuretic Peptide Stat Lab 09/28/23 13:18 Completed CBC w/Auto Diff [Complete Blood Count Auto Diff] Stat Lab 09/28/23 13:18 Completed Comprehensive Metabolic Panel Stat Lab 09/28/23 13:18 Completed T4 (Thyroxine) Stat Lab 09/28/23 13:18 Completed TSH [Thyroid Stimulating Hormone] Stat Lab 09/28/23 13:18 Completed Troponin I Q3H Lab 09/28/23 16:10 Completed Troponin I Q3H Lab 09/28/23 20:00 Ordered Troponin I Stat Lab 09/28/23 13:18 Completed ECG initial Besson Routine Y 09/28/23 Completed MDM Narrative Medical Decision Narrative: Patient is 83 years old history of hypertension, hyperlipidemia presenting from primary care doctor's for this out of concern for shortness of breath. Patient was discharged from [facility] about a month ago, she is following up today. Patient states that she has had swelling in her left leg and started feeling short of breath with minimal exertion. Saw her primary care doctor today and he was worried about pulmonary embolus, so sent her to the emergency department. Patient denies cough, nausea, vomiting, fevers or chills, or any other concerns. History was obtained via conversation with patient and daughter. On arrival, patient hemodynamically stable, alert, oriented x4, appropriate, GCS 15, moving all extremities spontaneously, pupils equal and reactive to light. Full physical exam performed and significant for mildly tachypneic patient 22 to 25 breaths/min. Lungs clear to auscultation bilaterally. Normotensive, nontachycardic, overall well-appearing. Nonpitting lower extremity edema. Differential includes pneumonia, bronchitis, PE, pneumothorax, metabolic, endocrinologic, dehydration, among others. Patient was given saline bolus for symptomatic management saline bolus. Workup independently interpreted and significant for nonactionable CBC or chemistry. Initial troponin negative. Thyroid studies nonactionable.. See radiology read for full review of final results. Independent interpretation of EKG shows sinus rhythm [address] or T wave changes concerning for acute ischemia. Intervals within normal notes. Patient was placed in observation beginning at 1:15 PM in order to obtain CT PE and delta troponin and determine need for admission versus home-going. The patient was provided fluids, serial exams, cardiac monitoring while awaiting results. Prior to CT PE and final troponin, care handed off to oncoming physician. Colleen Berrios MD: CT PE I independently reviewed and interpreted showed no PE, pneumonia, or other changes to explain her shortness of breath. Repeat troponin was undetectable, negative delta. Discussed with patient that at this time we have not identified any emergent causes of her shortness of breath. Patient feels comfortable monitoring her symptoms at home and returning if worsening and will follow-up with her primary care provider within the next few days. Discharge stable and asymptomatic.
[2023-09-28] MEDS: IOPAMIDOL-370 (76%);100ML BOTTLE 70 ML IV (14:43)
[2023-09-28] MEDS: 0.9 % SODIUM CHLORIDE 50 ML VIAL 40 ML IV (14:43)
[2023-09-28] MEDS: SODIUM CHLORIDE 0.9% 10ML SYR (RAD ONLY) 10 ML IV (14:43)
--- NOTE | 2023-09-28 15:35 | PC.NURSE ---
call made to radiology to check status of chest cta scan, staff states scan is locked and being read
[2023-09-28] MEDS: 0.9 % SODIUM CHLORIDE 1000ML 1,000 ML 999 ML IV (15:57)
[2023-09-28 16:46] LABS: Troponin I < 0.01 ng/ml (0.00-0.034)
== END 2023-09-28 17:12 | disposition home or self-care (01) ==
PROVIDERS: Emergency Medicine; Emergency Provider Emergency Medicine; PCP Internal Medicine Adolescent Medicine
DX: R06.02 Shortness of breath (principal); R22.42 Localized swelling, mass and lump, left lower limb; I10 Essential (primary) hypertension; E78.5 Hyperlipidemia, unspecified
CPT/HCPCS: 71275; 80053; 83880; 84436; 84443; 84484; 85025; 93005; 99285; Q9967

== ENCOUNTER 2023-10-10 11:46 | Outpatient (CLI) | payer MEDICARE, SELFPAY | END 2023-10-10 23:59 | PROVIDERS: PCP Internal Medicine Adolescent Medicine; Visit Provider Internal Medicine | DX: R00.0 Tachycardia, unspecified (principal); R06.02 Shortness of breath; R42 Dizziness and giddiness; R53.83 Other fatigue; R94.31 Abnormal electrocardiogram [ECG] [EKG] | CPT/HCPCS: 93225 ==

== ENCOUNTER 2023-10-12 12:17 | Outpatient (CLI) | payer MEDICARE, SELFPAY | END 2023-10-12 23:59 | PROVIDERS: PCP Internal Medicine Adolescent Medicine; Visit Provider Internal Medicine | DX: R00.0 Tachycardia, unspecified (principal); R06.02 Shortness of breath; R94.31 Abnormal electrocardiogram [ECG] [EKG]; R42 Dizziness and giddiness; R53.83 Other fatigue | CPT/HCPCS: 93270 ==

== ENCOUNTER 2023-10-17 07:00 | Outpatient (CLI) | payer MEDICARE, SELFPAY ==
--- NOTE | 2023-10-17 | CA_ITS ---
APPROVED REPORT Exam: Pharmacologic Technologist: Lisa Carbajal, Ht: 5 ft 0 in Wt: 119 lbs BSA: 1.50 m2 HR: 67 bpm BP: 162/72 mmHg Rhythm: NSR Medical History Medications: Losartan,,,,, Famotidine,,,,, MeLATONIN,,,,, NifEDIPINE ER,,,,, Cardiac Risk Factors: HTN, Hyperlipidemia, FHX of CAD Stress Test Details Test: LEXISCAN HR Resting HR: 66 bpm Max Heart Rate (APMHR): 138 bpm Max HR Achieved: 91 bpm Target HR (85% APMHR): 117 bpm % of APMHR: 66 Recovery HR: 85 bpm BP Resting BP: 162.0/72.0 mmHg Max BP: 178.0/90.0 mmHg Recovery BP: 144.0/76.0 mmHg ECG Resting ECG: NSR Stress ECG: No significant ST changes Arrhythmia: None Clinical Exercise duration: 04:01 min Highest Stage Achieved: Exercise capacity: 1.0 METs Stress ECG Conclusion During lexiscan patient did not experience any symptoms No arrhytmias noted ST changes: No significant ST changes Conclusion: Unremarkable Lexiscan stress test. Myoview images reported separately. Test Summary REST . . . . . . . Sitting REST 05:34 . . 66 . 162/ 72 . . Stage 1 01:00 . . 79 . . . . Stage 2 01:00 . . 90 . 178/ 90 . . Stage 3 01:00 . . 90 . 165/ 75 . . Stage 4 01:00 . . 89 . 152/ 65 . . Stage 4 01:01 . . 88 . 152/ 65 . Stop exercise at 04:01 RECOVERY 01:00 . . 81 . . . . RECOVERY 02:00 . . 79 . 144/ 76 . . RECOVERY 02:21 . . 79 . 161/ 82 . . Electronically signed by : Ericka Ni MD 10/19/2023 12:11:29
--- NOTE | 2023-10-17 07:08 | NM_ITS ---
APPROVED REPORT Exam: Nuclear Stress Test Indication: DYSRHYTHMIA, HTN, FM HX, SOB, PALPITATIONS, SYNCOPE, TACHYCARDIA Patient Location: Outpatient Stress Tech: Lisa Carbajal CT Tech:Lacy Eaton KENY RT (R)(N)(M) Ht: 5 ft 1 in Wt: 117 lbs Bra Size: A HR: 67 bpm BP: 162/72 mmHg BSA: 1.50 m2 TID: 1.03 BMI: 22.1 History: DYSRHYTHMIA, HTN, FM HX, C.P., SOB, PALPITATIONS Procedure: Patient received 0.4 mg of intravenous Lexiscan, resting heart rate 67 bpm, resting blood pressure 162/72 mmHg, with Lexiscan maximum heart rate achieved was 90 bpm which is % of the maximum predicted heart rate and blood pressure was 178/90 mmHg. With Lexiscan, patient denied any complaint of chest pain. Cardiac Stress and Resting SPECT Images: Cardiac Stress and Resting SPECT images were obtained using technetium 99m Myoview 31.8 mCi stress and 10.32 mCi at rest. Resting and stress imaging in supine and prone positions demonstrate no evidence of fixed or reversible perfusion defects. Gated imaging demonstrates normal global and regional LV systolic function. LVEF is calculated at 60%. Conclusion: No evidence of fixed or reversible perfusion defects. Gated imaging demonstrates normal global and regional LV systolic function. LVEF is calculated at 60%. Electronically signed by : Ericka Ni MD 10/19/2023 12:12:32
[2023-10-17] MEDS: REGADENOSON 0.4MG/5ML SYRINGE 0.400000000000000022 MG IV (11:28)
[2023-10-17] MEDS: SODIUM CHLORIDE 0.9% 10ML SYR (RAD ONLY) 10 ML IV ×2 (11:29)
[2023-10-17] MEDS: ISOTOPE MYOVIEW (PER STUDY) 1 DOSE IV (11:29)
== END 2023-10-17 23:59 ==
PROVIDERS: PCP Internal Medicine Adolescent Medicine; Visit Provider Internal Medicine
DX: R00.0 Tachycardia, unspecified (principal); R06.02 Shortness of breath; R42 Dizziness and giddiness; R53.83 Other fatigue; R94.31 Abnormal electrocardiogram [ECG] [EKG]
CPT/HCPCS: 78452; 93017; 93018; A9502; J2785

== ENCOUNTER 2024-06-11 11:10 | Outpatient (CLI) | payer MEDICARE, SELFPAY ==
[2024-06-11 11:32] LABS: Basophils % 0.7 % (0.1-2.0); Eosinophils # 0.1 K/mm3 (0.0-0.4); Eosinophils % 0.9 % (0.1-12.0); Hematocrit 42.3 % (37.0-47.0); Hemoglobin 13.9 g/dL (12.2-16.2); Lymphocytes # 2.9 K/mm3 (0.7-4.5); Lymphocytes % 46.8 % (10-50); Mean Corpuscular Hemoglobin 32.8 pg (27.0-31.2); Mean Corpuscular Volume 99.5 fl (81-99); Mean Platelet Volume 8.5 fl (7.4-10.4); Monocytes # 0.3 K/mm3 (0.1-1.0); Monocytes % 4.4 % (1.7-9.3); Neutrophils % 47.2 % (37.0-80.0); Platelet Count 227 K/mm3 (142-424); Red Blood Count 4.25 M/mm3 (4.20-5.40); Red Cell Distribution Width 13.4 % (11.5-17.5); White Blood Count 6.3 K/mm3 (4.8-10.8)
[2024-06-11 12:04] LABS: Alanine Aminotransferase 14 U/L (12-78); Albumin Level 4.6 g/dl (3.5-5.0); Alkaline Phosphatase 48 U/L (38-126); Aspartate Amino Transferase 28 U/L (14-36); Bilirubin,Direct 0.2 mg/dl (0.0-0.4); Bilirubin,Indirect 0.4 mg/dL (0.0-0.9); Bilirubin,Total 0.6 mg/dl (0.2-1.3); Bilirubin,Unconjugated 0.4 mg/dL (0.0-1.1); Blood Urea Nitrogen 12 mg/dl (7-17); Calcium 10.5 mg/dl (8.4-10.2); Carbon Dioxide 27 mmol/L (22.0-30.0); Chloride 105 mmol/L (98-107); Chol/HDL Ratio 5.9 (1-3.5); Cholesterol 205 mg/dl (140-200); Estimated Glomerular Filt Rate 96 ml/min (>60); GFR (African American) 116 ML/MIN (>60); Glucose 97 mg/dl (74-100); HDL Cholesterol 35 mg/dl (40-60); Sodium 138 mmol/L (136-145); Total Protein,Serum 7.2 g/dl (6.3-8.2); Triglycerides 290 mg/dl (30-150); VLDL Cholesterol 58 mg/dL (0-40)
[2024-06-11 12:16] LABS: Direct LDL Cholesterol 111.75 mg/dL (100-129)
[2024-06-11 12:24] LABS: Free T4 (Free Thyroxine) 1.12 ng/dl (0.78-2.19)
[2024-06-11 12:34] LABS: Thyroid Stimulating Hormone 1.77 uIU/mL (0.465-4.68)
== END 2024-06-11 23:59 | disposition home or self-care (01) ==
LOC: LAB 11:11
PROVIDERS: PCP Internal Medicine Adolescent Medicine; Visit Provider Physician Assistant
DX: I71.20 Thoracic aortic aneurysm, without rupture, unspecified (principal); R06.02 Shortness of breath; I10 Essential (primary) hypertension; K21.9 Gastro-esophageal reflux disease without esophagitis; E78.5 Hyperlipidemia, unspecified; I11.9 Hypertensive heart disease without heart failure; R06.00 Dyspnea, unspecified
CPT/HCPCS: 36415; 80048; 80061; 80076; 84439; 84443; 85025

== ENCOUNTER 2024-06-21 09:48 | Outpatient (CLI) | payer MEDICARE, SELFPAY ==
--- NOTE | 2024-06-21 09:50 | CT_ITS ---
FINAL REPORT TECHNIQUE: Postcontrast axial images of the chest were performed in a CTA protocol. This study was performed with techniques to keep radiation doses as low as reasonably achievable, (ALARA). Individualized dose reduction technique using automated exposure control or adjustment of mA and/or kV according to the patient's size were employed. CLINICAL HISTORY: thoracic aortic aneursym COMPARISON: 09/28/2023 FINDINGS: The heart is normal in size. No adenopathy is identified. No pleural or pericardial effusion is identified. There is aneurysmal dilatation of the ascending thoracic aorta measuring up to 4.5 cm in diameter, similar to previous exam. This is best seen on image 43 of series 3. There is no evidence of dissection. There is no filling defect to suggest pulmonary embolism. No lung infiltrate or mass is identified. There is scarring at the left lung base. There is a moderate size hiatal hernia. IMPRESSION: No evidence for PE or dissection on this exam. Stable ascending thoracic aortic aneurysm. Reviewed, Interpreted and Dictated by Maurilio Wick MD Transcribed by Kira Benavides Authenticated and [facility]
[2024-06-21] MEDS: SODIUM CHLORIDE 0.9% 10ML SYR (RAD ONLY) 10 ML IV (10:15)
[2024-06-21] MEDS: 0.9 % SODIUM CHLORIDE 50 ML VIAL IV (10:15)
[2024-06-21] MEDS: IOPAMIDOL-370 (76%);100ML BOTTLE 80 ML IV (10:15)
== END 2024-06-21 23:59 | disposition home or self-care (01) ==
LOC: RAD 09:50
PROVIDERS: PCP Internal Medicine Adolescent Medicine; Visit Provider Physician Assistant
DX: I71.20 Thoracic aortic aneurysm, without rupture, unspecified (principal)
CPT/HCPCS: 71275; Q9967

== ENCOUNTER 2024-08-10 14:00 | Outpatient (RCR) | payer MEDICARE, SELFPAY ==
--- NOTE | 2024-07-16 12:01 | HMH.PTOPWND ---
Rehab Outpt Wound Evaluation Rehab OP Wound Evaluation Start: 07/16/24 11:51 Freq: Status: Active Protocol: Document 07/16/24 11:51 ZAN (Rec: 07/16/24 12:01 ZAN [id number]) E-signed By Edvin Renteria, PT Subjective/History History History This is the initial PT eval for Leora Guerrero, 83 yowf who presents with c/o increased B LE edema, L worse than R, x ~ 3-4 mos with insidious onset of symptoms. She reports increased feelings of tightness and pain in B lower legs, worse at night. She reports she doesn't see much difference in her edema with elevation of her legs. She reports PMH of HTN, HLD, thoracic aortic aneurysm. Subjective Subjective Currently pain is 0/10, at worst pain is 5/10. 2/4 TTP to medial L ankle and lower leg. Mild erythema noted in L LE, 1+ pitting edema noted L lower leg. New diagnosis of cancer in past 12 No months? Lymphedema Eval Classification of Lymphedema Secondary Lymphedema Yes Stemmer's sign Stemmer's Sign no Stage of Lymphedema Lymphedema stages Stage I (Pitting edema, reduces w/ elevation, no fibrosis) Skin Changes Dry Skin Yes Skin Folds Yes Redness Yes Other Changes Yes Pain Scale Pain Scale (0-10) 5 Affected Extremities Areas Affected by Lymphedema/Edema Right Lower Extremity,Left Lower Extremity Lower Extremity Measurements Right MTP Measurement (cm) 18.7 Heel Measurement (cm) 27.5 10 cm Proximal to Lateral Malleoli 27.6 Measurement (cm) 20 cm Proximal to Lateral Malleoli 34.3 Measurement (cm) 30 cm Proximal to Lateral Malleoli 34.1 Measurement (cm) 40 cm Proximal to Lateral Malleoli 0 Measurement (cm) 50 cm Proximal to Lateral Malleoli 0 Measurement (cm) 60 cm Proximal to Lateral Malleoli 0 Measurement (cm) Lower Extremity Measurement Total (cm) 142.2 Left MTP Measurement (cm) 19.0 Heel Measurement (cm) 28.2 10 cm Proximal to Lateral Malleoli 28.4 Measurement (cm) 20 cm Proximal to Lateral Malleoli 34.2 Measurement (cm) 30 cm Proximal to Lateral Malleoli 35.1 Measurement (cm) 40 cm Proximal to Lateral Malleoli 0 Measurement (cm) 50 cm Proximal to Lateral Malleoli 0 Measurement (cm) 60 cm Proximal to Lateral Malleoli 0 Measurement (cm) Lower Extremity Measurement Total (cm) 144.9 Manual Lymphatic Drainage Treatment Area MLD Treatment Area Right Lower Extremity,Left Lower Extremity Wound Problems/Impairments Impairments Problems/Impairmments Palpation Tenderness,Impaired Household Care,Increased Edema ,Lymphedema Present,Subjective C/O Pain,Impaired Self Care/ Self Management Prognosis Rehab Potential Good Comment Skilled therapy is indicated to reduce overall edema burden and return pt to PLOF. Clinical Impression Consistent with Diagnosis Yes Short Term Goals Number of Weeks 2 Decreased Palpation Tenderness Yes: 1/4 L medial lower leg Decrease Edema Yes: no pitting edema B lower legs Decrease Subjective C/O Pain Yes: 3/10 at worst B LE Patient to Understand Lymphedema Yes Treatment and Exercises Decrease Girth Measurments by (cm) Yes: B LE total by 5 cm ea Fdc Goals Number of Weeks 4 Decreased Palpation Tenderness Yes: 0/4 L medial lower leg Decrease Lymphedema Yes: No fibrotic edema B LE Decrease Subjective C/O Pain Yes: 1/10 at worst B Lower legs Patient to be Ind w/ HEP Yes Patient to be Ind w/ Donning/[place] Yes Compression Garments Patient to Adhere Lymphedema Precautions Yes Decrease Girth Measurments by (cm) Yes: B LE total by 15 cm ea Outpatient Therapy Plan of Care Treatment Plan May Include Therapeutic Exercise Including Home Yes Exercise Program Manual Therapy Techniques Yes Neuromuscular Re-education Yes Therapeutic Activities to Return to Yes Previous Functional/Work Level ADL/Self Care Education Yes Orthotics/Bracing/Splinting Yes Manual Lymphatic Drainage Yes Eval/Re-Eval Yes Frequency Times per week 2 Duration Number of Weeks 4 Addendums This patient is a candidate for social No or vocational rehab? Patient/Guardian verbally acknowledges Yes understanding of treatment program and consents to further treatment? Patient/Guardian verbally acknowledges Yes understanding of diagnosis, prognosis and goals for treatment? Eval Complexity PT Charges 47759 - High Complexity PHYSICIAN CERTIFICATION: I certify the specified therapy services for Leora Lees Guerrero are required, authorized, and reviewed every 30 days.
== END 2024-08-10 23:59 | disposition home or self-care (01) ==
LOC: PT 14:00
PROVIDERS: PCP Internal Medicine Adolescent Medicine; Visit Provider Internal Medicine Adolescent Medicine
DX: R60.0 Localized edema (principal)
CPT/HCPCS: 97140; 97163

== ENCOUNTER 2025-02-22 11:46 | Outpatient (CLI) | payer MEDICARE, SELFPAY ==
--- OUTSIDE RECORDS SUMMARY | 2024-10-10 06:00 | XMS_ITS ---
Author Organization [facility] Address [address] [facility] [address] [facility] [address] [place] [address] Care Team Providers Care Wallpaper Cleaner Name Role Phone Prasanna De La Rosa Primary Care Provider McNees, Sharath Unavailable [phone] Casandra SANTILLAN, SHARATH Unavailable Unavailable REASON FOR VISIT 3 month check up Encounters Encounter Location Date Provider Diagnosis [facility] [address] [place], [place] [address] 10/10/2024 Prasanna De La Rosa Plan Of Treatment Next Appt Details Provider Name:Prasanna De La Rosa, 05/29/2025 11:15:00 AM, [address], [address], [place], [address], Progress Notes * Lili CATALANB:1940 ([age] yo F)Acc No.[id number]:10/10/2024 Progress Notes Patient: Michel GALAVIZ Leora Provider: Myron De La Rosa MD :1940 A ge:84 Y S ex:Female Date:10/10/2024 Address: [address], [address], [place] Subjective: * Chief Complaints: * 1 . 3 month check up. * Medical History: Objective: * Vitals: Assessment: Plan: * Treatment: * * Electronic signature of Kendell De La Rosa MD FAAP on 02/22/2025 at 11:49 AM EDT Sign off status: Pending * Provider: Myron De La Rosa MD Date: 0 10/10/2024 Generated for Grace richards/Carmelo/Montserrat on: 0 02/22/2025 11:49 AM EDT
--- OUTSIDE RECORDS SUMMARY | 2024-12-22 17:30 | XMS_ITS ---
Author Organization [facility] Address [address] [place] [address] Care Team Providers Care Dumb Waiter Operator Name Role Phone Prasanna De La Rosa Primary Care Provider Sharath Guajardo Unavailable [phone] SHARATH Guajardo APRN Unavailable Unavailable Migration, Provider Unavailable Unavailable REASON FOR VISIT [facility] Conversion Encounter Medications Medication SIG (Take, Route, Frequency, Duration) Notes Start Date End Date Status Gentamicin Sulfate 0.3 % 1 gtt in each eye 4 times a day for 7 days 08/06/2024 Active Losartan Potassium 100 MG 1 tab(s) orally once a day for 90 days Active Famotidine 20 MG 1 tab(s) orally 2 times a day for 90 days Active Melatonin 5 MG 1 cap(s) orally once a day (at bedtime) Active Fluticasone Propionate 50 MCG/ACT 1 spray(s) in each nostril twice daily for 30 days 02/29/2024 Active Metoprolol Succinate ER 25 MG 1/2 tab orally at bedtime Ericka Daaboul Active NIFEDIPINE (EQV-PROCARDIA XL) 30 MG TAKE TWO TABLETS ORALLY ONCE A DAY for 90 DAYS *Please review for potential replacement for e-prescription and drug interaction check* Active Encounters Encounter Location Date Provider Diagnosis [facility] [address] [place] [address] 12/22/2024 Provider Migration Bacterial conjunctivitis of left eye H10.9 Assessments Encounter Date Diagnosis (ICD Code) Assessment Notes Treatment Notes Treatment Clinical Notes Section Notes 12/22/2024 Bacterial conjunctivitis of left eye (ICD-10 - H10.9) Plan Of Treatment Medication Medication Name Sig Start Date Stop Date Notes Gentamicin Sulfate 0.3 % 1 gtt in each eye 4 times a day for 7 days 08/06/2024 Famotidine 20 MG 1 tab(s) orally 2 times a day for 90 days NIFEDIPINE (EQV-PROCARDIA XL) 30 MG TAKE TWO TABLETS ORALLY ONCE A DAY for 90 DAYS *Please review for potential replacement for e-prescription and drug interaction check* Next Appt Details Provider Name:Prasanna De La Rosa, 05/29/2025 11:15:00 AM, [address], [address], [place], [address], Progress Notes * Lili CATALANB:1940 ([age] yo F)Acc No.[id number]:12/22/2024 Patient: Michel ANASTACIALeora Provider: Michel Washburn :1940 A ge:84 Y S ex:Female Date:12/22/2024 Address:[facility] [address], [place], [place] Pcp:Prasanna De La Rosa Subjective: * Chief Complaints: * 1 . [facility] Conversion Encounter. * Medical History: * Medications: [...] Electronic signature of Joanne haskins Migration on 02/22/2025 at 11:50 AM EDT Sign off status: Pending * Provider: Michel carter Migration Date: 0 12/22/2024 Generated for Grace richards/Carmelo/Montserrat on: 0 02/22/2025 11:50 AM EDT
--- OUTSIDE RECORDS SUMMARY | 2025-02-22 11:50 | XMS_ITS | Patient Health Record ---
Author Organization [facility] VI Address [address] [place] [address] Care Team Providers Care Housekeeping Worker Name Role Phone Prasanna De La Rosa Primary Care Provider [phone] McNees, Ashley Unavailable [phone] McNees PARENT AIDE, ASHLEY Unavailable Unavailable Diana Ortiz Unavailable [phone] Migration, Provider Unavailable Unavailable Allergies No Known Allergies Results Component Value Reference Range Notes THYROID PANEL WITH TSH (7444 ) Reviewed date:07/11/2024 07:56:43 AM Interpretation: Performing Lab:[facility] [address], [email or web address] Sylvester Schuster Notes/Report: NON-FASTING; NON-FASTING; NON-FASTING; NON-FASTING FASTING:YES FASTING: YES T3 UPTAKE 27 22-35 % T4 (THYROXINE), TOTAL 8.7 5.1-11.9 mcg/dL FREE T4 INDEX (T7) 2.3 1.4-3.8 TSH 1.50 0.40-4.50 mIU/L LIPID PANEL, STANDARD (7600) Reviewed date:07/11/2024 07:56:43 AM Interpretation: Performing Lab:[facility] [address], [email or web address] Sylvester Schuster Notes/Report: NON-FASTING; NON-FASTING; NON-FASTING; NON-FASTING FASTING:YES FASTING: YES CHOLESTEROL, TOTAL 222 <200 mg/dL HDL CHOLESTEROL 43 > OR = 50 mg/dL TRIGLYCERIDES 169 <150 mg/dL LDL-CHOLESTEROL 148 Reference range: <100 Desirable range <100 mg/dL for primary prevention; <70 mg/dL for patients with CHD or diabetic patients with > or = 2 CHD risk factors. LDL-C is now calculated using the Remedios calculation, which is a validated novel method providing better accuracy than the Friedewald equation in the estimation of LDL-C. Steven LONGORIA et al. ANGELIC. 2013;310(11): 6018-3569 (http://education.hike/faq/DWB421) CHOL/HDLC RATIO 5.2 <5.0 (calc) NON HDL CHOLESTEROL 179 <130 mg/dL (calc) For patients with diabetes plus 1 major ASCVD risk factor, treating to a non-HDL-C goal of <100 mg/dL (LDL-C of <70 mg/dL) is considered a therapeutic option. COMPREHENSIVE METABOLIC PANCrow Meade (35340) Reviewed date:07/11/2024 07:56:43 AM Interpretation: Performing Lab:[facility] [address] [facility] Veg[facility] Villagran, Alex ArizaPpkhIF[address] Sylvester Schuster Notes/Report: NON-FASTING; NON-FASTING; NON-FASTING; NON-FASTING FASTING:YES FASTING: YES GLUCOSE 98 65-99 mg/dL Fasting reference interval UREA NITROGEN (BUN) 16 7-25 mg/dL CREATININE 0.76 0.60-0.95 mg/dL EGFR 78 > OR = 60 mL/min/1.73m2 BUN/CREATININE RATIO SEE NOTE: 6-22 (calc) Not Reported: BUN and Creatinine are within reference range. SODIUM 137 135-146 mmol/L POTASSIUM 4.3 3.5-5.3 mmol/L CHLORIDE 101 98-110 mmol/L CARBON DIOXIDE 25 20-32 mmol/L CALCIUM 10.5 8.6-10.4 mg/dL PROTEIN, TOTAL 7.2 6.1-8.1 g/dL ALBUMIN 4.7 3.6-5.1 g/dL GLOBULIN 2.5 1.9-3.7 g/dL (calc) ALBUMIN/GLOBULIN RATIO 1.9 1.0-2.5 (calc) BILIRUBIN, TOTAL 0.6 0.2-1.2 mg/dL ALKALINE PHOSPHATASE 46 37-153 U/L AST 17 10-35 U/L ALT 8 6-29 U/L CBC (INCLUDES DIFF/PLT) (639 9) Reviewed date:07/11/2024 07:56:44 AM Interpretation: Performing Lab:[facility], [facility]-Alex [address] [facility], Alex [id number] Sylvester Schuster Notes/Report: NON-FASTING; NON-FASTING; NON-FASTING; NON-FASTING FASTING:YES FASTING: YES WHITE BLOOD CELL COUNT 6.1 3.8-10.8 Thousand/ uL RED BLOOD CELL COUNT 4.23 3.80-5.10 Million/uL HEMOGLOBIN 14.0 11.7-15.5 g/dL HEMATOCRIT 40.9 35.0-45.0 % MCV 96.7 80.0-100.0 fL MCH 33.1 27.0-33.0 pg MCHC 34.2 32.0-36.0 g/dL For adults, a slight decrease in the calculated MCHC value (in the range of 30 to 32 g/dL) is most likely not clinically significant; however, it should be interpreted with caution in correlation with other red cell parameters and the patient's clinical condition. RDW 12.5 11.0-15.0 % PLATELET COUNT 215 140-400 Thousand/uL MPV 10.3 7.5-12.5 fL ABSOLUTE NEUTROPHILS 3105 5722-3524 cells/uL ABSOLUTE LYMPHOCYTES 2428 850-3900 cells/uL ABSOLUTE MONOCYTES 476 200-950 cells/uL ABSOLUTE EOSINOPHILS 61 15-500 cells/uL ABSOLUTE BASOPHILS 31 0-200 cells/uL NEUTROPHILS 50.9 LYMPHOCYTES 39.8 MONOCYTES 7.8 EOSINOPHILS 1.0 BASOPHILS 0.5 Reason For Referral No Information Medications Medication SIG (Take, Route, Frequency, Duration) Notes Start Date End Date Status Famotidine 20 mg TAKE ONE TABLET BY MOUTH TWICE DAILY for 90 Active Melatonin 5 MG 1 cap(s) orally once a day (at bedtime) prn Active Pantoprazole Sodium 40 MG 1 tablet 1/2 to 1 hour before morning meal Orally Once a day Active Metoprolol Succinate ER 25 MG 1/2 tab orally at bedtime Ericka Ni Active NIFEDIPINE (EQV-PROCARDIA XL) 30 MG TAKE TWO TABLETS ORALLY ONCE A DAY for 90 DAYS *Please review for potential replacement for e-prescription and drug interaction check* Active Fluticasone Propionate 50 MCG/ACT 1 spray(s) in each nostril twice daily for 30 days 02/29/2024 Active Immunizations Vaccine Route Administration Date Status Comme nts Prevnar PCV-13 (Pneumococcal conjugate 13) Unknown 06/10/2017 Administered Fluzone High Dose IM Intramuscular 08/05/2022 Administered Fluzone High Dose IM Intramuscular 08/24/2023 Administered Fluzone High Dose IM Intramuscular 07/09/2024 Administered Arexvy IM Intramuscular 07/09/2024 Administered Social History Tobacco Use: Social History Observation Description Date Details (start date - stop date) Never Smoker NA - NA Smoking: Question Answer Notes Are you a: nonsmoker Problems Problem Type SNOMED Code ICD Code Onset Dates Problem Status W/U Status Risk Notes Problem 398796482 Routine medical exam (Z00.00) Active confirmed Problem 199588599 GERD without esophagitis (K21.9) Active confirmed Problem 797834221 Seasonal allergi es (J30.2) Active confirmed Problem 41079295 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) Active confirmed Problem 89180993 RLS (restless le gs syndrome) (G25.81) Active confirmed Problem 47554133 Other chronic pa in (G89.29) Active confirmed Problem 30026541282913737 Lymphedema of left lower extremity (I89.0) Active confirmed Problem 971966532 Psychophysiologi talib insomnia (F51.04) Active confirmed Problem Acid reflux (628619823) Acid reflux (K21.9) Active confirmed Problem Accelerated essentia l hypertension (96477824) Accelerated essential hypertension (I10) Active confirmed Problem 57409683 Malignant hypertension (I10) Active confirmed Problem 8641983739287752 Gouty arthritis of left great toe (M10.9) Active confirmed Problem Lower leg edema (R60.0) Active confirmed Problem Hyperlipoproteinemia (8396793) Acquired 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) Active confirmed Vital Signs Heart Rate 92 /min 02/22/2025 Temperature 97.3 degrees Fahrenheit 02/22/2025 Blood pressure diastolic 62 mm Hg 02/22/2025 Height 5 ft in 02/22/2025 Blood pressure systolic 112 mm Hg 02/22/2025 Weight 114.7 lbs 02/22/2025 BMI 22.4 kg/m2 02/22/2025 Encounters Encounter Location Date Provider Diagnosis [facility] [address] [place] [address] 12/22/2024 Provider Migration Bacterial conjunctivitis of left eye H10.9 [facility] [address] [facility] [place] [address] 02/22/2025 Prasannaroberto De La Rosa Lower leg edema R60. 0 ; RLS (restless legs syndrome) G25.81 ; GERD without esophagitis K21.9 ; Lymphedema of left lower extremity I89.0 and Accelerated essential hypertension I10 [facility] [address] [place] [address] 02/29/2024 Prasanna De La Rosa Non-recurrent acute serous otitis media of left ear H65.02 [facility] [address] [place] [address] 07/09/2024 Prasannaroberto De La Rosa RLS (restless legs syndrome) G25.81 ; GERD without esophagitis K21.9 ; Accelerated essential hypertension I10 ; Acquired hyperlipoproteinemia E78.5 ; Immunization(s) administered Z23 ; Lower leg edema R60.0 and Routine medical exam Z00.00 [facility] [address] [place] [address] 08/06/2024 Diana Diana Bacterial conjunctiv itis of left eye H10.9 [facility] [address] [place] [address] 10/15/2024 Prasanna De La Rosa [facility] [address] [place] [address] 10/15/2024 Prasannaroberto De La Rosa Assessments Encounter Date Diagnosis (ICD Code) Assessment Notes Treatment Notes Treatment Clinical Notes Section Notes 02/29/2024 Non-recurrent acute serous otitis media of left ear (ICD-10 - H65.02) No evidence of foreign body, patient reassured, I think her symptoms are from popping and cracking from serous otitis, start Flonase for a week. 07/09/2024 GERD without esophagitis (ICD-10 - K21.9) Patient advised to continue with Famotidine 07/09/2024 RLS (restless legs syndrome) (ICD-10 - G25.81) Continue to monitor symptoms and labs 08/06/2024 Bacterial conjunctivitis of left eye (ICD-10 - H10.9) Discussed rationale for drops and continue use of warm compresses. discussed to call back if the vision becomes blurry or if symptoms do not improve over the next 2-3 days. 12/22/2024 Bacterial conjunctivitis of left eye (ICD-10 - H10.9) 02/22/2025 RLS (restless legs syndrome) (ICD-10 - G25.81) 02/22/2025 Lower leg edema (ICD -10 - R60.0) 02/22/2025 GERD without esophagitis (ICD-10 - K21.9) 07/09/2024 Accelerated essentia l hypertension (ICD-10 - I10) Patient reports monitoring at home and follows with Cardiology who has adjusted medications. Follow-up in 3-4 months. 02/22/2025 Lymphedema of left lower extremity (ICD-10 - I89.0) 07/09/2024 Acquired hyperlipoproteinemia (ICD-10 - E78.5) Continue to monitor labs 02/22/2025 Accelerated essentia l hypertension (ICD-10 - I10) 07/09/2024 Immunization(s) administered (ICD-10 - Z23) 07/09/2024 Lower leg edema (ICD -10 - R60.0) Patient referred to lymphedema specialist for bothersome bilateral lower extremity edema 07/09/2024 Routine medical exam (ICD-10 - Z00.00) Discussed recommended vaccinations and preventative care measures. Follow-up in 3-4 months. Patient has living will in place. Aged out of cancer screenings. Functional status excellent. Depression screening negative. HRA reviewed. Patient has no evidence of cognitive impairment with 3/3 word recall Plan Of Treatment Pending Test Test Name Order Date Physical Therapy : Lymphedema 07/09/2024 M-Complete Blood Count Auto Diff 025 M-Comprehensive Metabolic Panel 02/23/20 25 M-Magnesium 02/22/2025 M-Ferritin 02/22/2025 M-BNP 02/22/2025 Next Appt Details Provider Name:Prasanna De La Rosa, 05/29/2025 11:15:00 AM, [address], [place], [address], Insurance Providers Payer Name Payer Address Payer Phone Subscriber Number Group Number Insured Name Patient Relationship to Insured Coverage Start Date Coverage End Date [facility] [address] [address] [place] [address] [id number] Guerrero, Leora Self - patient is the insured Medications Administered Medication Instructions Date of Administration Dosage Notes Dexamethasone 4mg Injection 03/16/2022 4 mg Dexamethasone 4mg Injection 04/29/2022 4 mg Medical (General) History Medical History History ICD Code HTN Arthritis Surgical History Surgery Date(Month/Year) Total hysterectomy lt great toe surgery-bunion removal 05/21 022 Hospitalization History Reason Date(Month/Year) [facility] 08/11 Total hysterectomy
--- OUTSIDE RECORDS SUMMARY | 2025-02-22 11:50 | XMS_ITS | Clinical Summary ---
Author Organization Healthcare Address [address] [place] [address] Care Team Providers Care Check Weigher Name Role Phone Pcp, No Primary Care Provider Unavailabl e Allergies No known active allergies Medications famotidine (Pepcid) 20 MG tablet Take 1 tablet (20 mg) by mouth 2 (two) times a day if needed for heartburn. Active methocarbamol (Robaxin) 500 MG tablet Take 1 tablet (500 mg) by mouth 4 (four) times a day if needed for muscle spasms. Active losartan (Cozaar) 100 MG tablet Take 1 tablet (100 mg) by mouth 1 (one) time each day. 30 tablet 3 08/21/2023 Active NIFEdipine XL (Procardia XL) 30 MG 24 hr tablet Take 2 tablets (60 mg) by mouth 1 (one) time each day. Do not crush, chew, or split. 30 tablet 3 08/21/2023 Active Active Problems Problem Noted Date Diagnosed Date Hypertensive emergency 08/20/2023 Nausea and vomiting, unspecified vomiting type 1 10/16/2022 Social History Tobacco Use Types Packs/Day Years Used Date Smoking Tobacco: Never Assessed Humiliation, Afraid, Rape, and Kick questionnair e Answer Date Recorded Within the last year, have y ou been afraid of your partner or ex-partner? No 08/18/2023 Within the last year, have y ou been humiliated or emotionally abused in other ways by your partner or ex-partner? No Within the last year, have y ou been kicked, hit, slapped, or otherwise physically hurt by your partner or ex-partner? No 08/18/2023 Within the last year, have y ou been raped or forced to have any kind of sexual activity by your partner or ex-partner? No 08/18/2023 Hunger Vital Sign Answer Date Recorded Within the past 12 months, y ou worried that your food would run out before you got the money to buy more. Never true 08/18/20 23 Within the past 12 months, t he food you bought just didn't last and you didn't have money to get more. Never true 08/18/2023 PRAPARE - Transportation Answer Date Re corded In the past 12 months, has l ack of transportation kept you from medical appointments or from getting medications? No 07/22 In the past 12 months, has l ack of transportation kept you from meetings, work, or from getting things needed for daily living? No 08/18/2023 Housing Stability Vital Sign Answer Jp e Recorded In the last 12 months, was t here a time when you were not able to pay the mortgage or rent on time? No 08/18/2023 In the last 12 months, how many places have you lived? 1 08/18/2023 In the last 12 months, was t here a time when you did not have a steady place to sleep or slept in a group home (including now)? No 08/18/2023 CAGE ASSESSMENT Answer Date Recorded Cage unable to access Not on file 08/18/2023 Cage max number of drinks Not on file 2022 Cage Beverages a week Not on file 08/18/2023 Have you ever felt you should CUT down on your d rinking? 0 08/18/2023 Have you been ANNOYED by people criticizing your drinking? 0 08/18/2023 Have you felt GUILTY about your drinking? 0 08/18/2023 Have you had a drink first t telma in the morning (EYE-FUR POINTER) to steady your nerves or to get rid of a hangover? 0 08/18/2023 CAGE Questionnaire Score 0 023 Utilities Answer Date Recorded In the past 12 months has th e [employer], gas, oil, or water company threatened to shut off services in your home? No 08/18/2023 Comments No Sex and Gender Information Value Date Recorded Sex Assigned at Not on file Legal Sex Female 5:37 AM EST Gender Identity Not on file Sexual Orientation Not on file Last Filed Vital Signs Vital Sign Reading Time Taken Comments Blood Pressure 136/82 08/20/2023 11:17 AM EST Pulse 96 08/20/2023 11:17 AM EST Temperature 37.4 C (99.4 F) 08/20/2023 11:17 AM EST Respiratory Rate 18 08/20/2023 11:17 AM EST Oxygen Saturation 95% 08/20/2023 11:17 AM EST Inhaled Oxygen Concentration - - Weight 59.1 kg (130 lb 4.7 oz) 08/16/2023 1:43 P M EST Height 152.4 cm (5') 08/16/2023 1:43 PM EST Body Mass Index 25.45 08/16/2023 1:43 PM EST Plan of Treatment Health Maintenance Due Date Last Done Comments [facility]-Bone Density Scan 1941 [facility]-Depression Screening 1941 [facility]-Medicare Annual Wellness (AWV) 1941 [facility]-Infant/Child/Adol SDOH Screenings 1941 [facility]- SDOH Screenings 1959 [facility]-Adult SDOH Screenings 1959 [facility]-DTaP,Tdap,and Td Vaccines (1 - Tdap) 1960 [facility]-RSV Vaccine: 60+ Years or (1 - 1-dose 75+ series) 2016 [facility]-Zoster Vaccines (2 of 3) 02/23/2017 12/29/2016 [id number] Vaccine ( - season) 2024 04/06/2022, 06/15/2021, 05/18/2021 [facility]-Influenza Vaccine (Season Ended) 2025 07/02/2021 [facility]-Pneumococcal Vaccine: 50+ Years Completed 03/10/2018, 06/10/2017 [facility]-Diabetes: Hemoglobin A1C Discontinued 08/16/2023 [facility]-Obesity Intervention Completed 023, 08/16/2023 HPV Vaccines Aged Out No longer eligi ble based on patient's age to complete this topic [facility]-HIB Vaccines Aged Out No longer e ligible based on patient's age to complete this topic [facility]-Hepatitis A Vaccines Aged Out No longer eligible based on patient's age to complete this topic [facility]-IPV Vaccines Aged Out No longer e ligible based on patient's age to complete this topic [facility]-Rotavirus Vaccines Aged Out No lo nger eligible based on patient's age to complete this topic Procedures Procedure Name Priority Date/Time Associated Diagnosis Comments HEMOGLOBIN A1C Routine 08/16/2023 1:46 PM EST from Last 3 Months or Most Recently Relevant to Health Maintenance Results * Hemoglobin A1c (08/16/2023 1:46 PM EST) Hemoglobin A1c 5.4 <5.7 % 08/16/2023 4:47 PM EST [facility] Blood Venous blood specimen / Unknown Venipuncture / Unknown 08/16/2023 1:46 PM EST 08/16/2023 2:12 PM EST Narrative [facility] - 08/16/2023 4:47 PM EST HA1C Interpretive Data: Diagnosis of Diabetes: Diabetic > or = 6.5% Pre-diabetic 5.7 to 6.4% Non-diabetic < or = 5.6% Glycemic Targets for Type I and Type II Diabetics: Non- Adults <7.0% Adults <6.0% Children and Adolescents <7.5% Source: [place] [employer]. Standards of medical care in diabetes,2017. Diabetes Care.2017:40 (suppl 1):S1-S135. HbA1c assay performed by an ion-exchange chromatography method that is certified traceable to the DCCT. Mannievioletta Suh MD LAB BLOOD ORDERABLES Final Resu lt [facility] [address] [place] [address] from Last 3 Months or Most Recently Relevant to Health Maintenance Insurance MEDICARE Advance Directives Documents on File Type Date Recorded Patient Veterinary Laboratory Technician Expl anation Power of Professor Of Latin American Studies 08/23/2023 7:15 AM Advance Directives and Livin g Will 08/23/2023 7:15 AM * Full Code (Latest Code Status on File) Date Activated Date Inactivated Comments 08/16/2023 1:29 PM 08/20/2023 4:24 PM Question Answer Comments Patient has decision-making capacity? No Healthcare Surrogate: Adult child of the patient Care Teams Check Weigher Relationship Specialty Start Date End Date PcpThelma [address] [place] [address] PCP - General Family Medicine 08/16/23
[2025-02-22 13:08] LABS: Basophils % 0.4 % (0.1-2.0); Eosinophils # 0.1 Kmm3 (0.0-0.4); Eosinophils % 1.3 % (0.1-12.0); Hematocrit 40.3 % (37.0-47.0); Hemoglobin 13.3 g/dL (12.2-16.2); Immature Granulocytes # 0.01 10^3uL; Immature Granulocytes % 0.1 %; Lymphocytes # 2.7 K/mm3 (0.7-4.5); Lymphocytes % 40.1 % (10-50); Mean Corpuscular Hemoglobin 31.4 pg (27.0-31.2); Mean Platelet Volume 9.8 fl (7.4-10.4); Monocytes # 0.4 K/mm3 (0.1-1.0); Monocytes % 6.1 % (1.7-9.3); Neutrophils # 3.5 K/mm3 (1.8-7.8); Nucleated Red Blood Cells # 0 10^3/uL; Nucleated Red Blood Cells % 0 %; Platelet Count 207 K/mm3 (142-424); Red Blood Count 4.24 M/mm3 (4.20-5.40); Red Cell Distribution Width 12.4 % (11.5-17.5); Red Cell Distribution Width-SD 43.3 fL; White Blood Count 6.7 K/mm3 (4.8-10.8)
[2025-02-22 13:32] LABS: Alanine Aminotransferase 10 U/L (12-78); Albumin Level 4.8 g/dl (3.5-5.0); Albumin/Globulin Ratio 1.7 (1.1-1.8); Alkaline Phosphatase 51 U/L (38-126); Anion Gap 8.9 mEq/L (5-15); Aspartate Amino Transferase 26 U/L (14-36); Bilirubin,Total 0.6 mg/dl (0.2-1.3); Blood Urea Nitrogen 11 mg/dl (7-17); Calcium 10.1 mg/dl (8.4-10.2); Carbon Dioxide 28 mmol/L (22.0-30.0); Chloride 105 mmol/L (98-107); Estimated Glomerular Filt Rate 95 ml/min (>60); GFR (African American) 116 ML/MIN (>60); Globulin 2.8 g/dL (1.3-3.2); Glucose 93 mg/dl (74-100); Magnesium 1.8 mg/dl (1.6-2.3); Potassium 4.9 mmoL/L (3.5-5.1); Sodium 137 mmol/L (136-145); Total Protein,Serum 7.6 g/dl (6.3-8.2)
[2025-02-22 13:43] LABS: NT Pro Brain Natriuretic Pep. 174 pg/mL (0-450)
[2025-02-22 18:43] LABS: Ferritin 318 ng/ml (11.1-264)
== END 2025-02-22 23:59 | disposition home or self-care (01) ==
LOC: LAB 11:47
PROVIDERS: PCP Internal Medicine Adolescent Medicine; Visit Provider Internal Medicine Adolescent Medicine
DX: G25.81 Restless legs syndrome (principal); I89.0 Lymphedema, not elsewhere classified; I10 Essential (primary) hypertension; R60.0 Localized edema
CPT/HCPCS: 36415; 80053; 82728; 83735; 83880; 85025

== ENCOUNTER 2025-06-03 13:32 | Outpatient (CLI) | payer MEDICARE, SELFPAY ==
--- OUTSIDE RECORDS SUMMARY | 2025-06-03 13:35 | XMS_ITS | Clinical Summary ---
Author Organization Healthcare Address [address] [place] [address] Care Team Providers Care Power Plant Inspector Name Role Phone Pcp, No Primary Care [...] place to sleep or slept in a assisted (including now)? No 08/18/2023 CAGE ASSESSMENT Answer [...] drink first t telma in the morning (EYE-DIRECTOR OF HEALTH CARE MARKETING) to steady your nerves or to get rid of a hangover? 0 08/18/2023 CAGE Questionnaire Score 0 023 Utilities Answer Date Recorded In the past 12 months has th e [employer], gas, oil, or water company threatened to [...] Screening 1940 [facility]-Medicare Annual Wellness (AWV) 1940 [facility]-/Child/Adol SDOH Screenings 1940 [facility]- SDOH Screenings 1959 [facility]-Adult SDOH Screenings 1959 [facility]-DTaP,Tdap,and Td Vaccines (1 - Tdap) 1960 [facility]-RSV Vaccine: 60+ Years or (1 - 1-dose 75+ series) 2016 [facility]-Zoster Vaccines (2 of 3) 02/23/2017 12/29/2016 [id number] Vaccine ( - season) 2025 04/06/2022, 06/15/2021, 05/18/2021 [facility]-Influenza Vaccine (#1) 2025 07/02/2021 [facility]-Pneumococcal Vaccine: 50+ Years Completed [...] Adults <6.0% Children and Adolescents <7.5% Source: [place] [employer]. Standards of medical care in diabetes,2017. Diabetes Care.2017:40 (suppl 1):S1-S135. HbA1c assay performed by an ion-exchange chromatography method that is certified traceable to the DCCT. Mannievioletta Suh MD LAB BLOOD ORDERABLES Final Resu lt [facility] [address] [place] [address] from Last 3 Months or Most Recently Relevant to Health Maintenance Insurance MEDICARE Advance Directives Documents on File Type Date Recorded Patient Right Of Way Maintenance Supervisor Expl anation Power of Stretcher Leveler Operator Helper 08/23/2023 7:15 AM Advance Directives and Livin g Will 08/23/2023 7:15 AM * Full Code (Latest Code Status on File) Date Activated Date Inactivated Comments 08/16/2023 1:29 PM 08/20/2023 4:24 PM Question Answer Comments Patient has decision-making capacity? No Healthcare Surrogate: Adult child of the patient Care Teams Power Plant Inspector Relationship Specialty Start Date End Date PcpThelma [address] [place] [address] PCP - General Family Medicine 08/16/23
[2025-06-03 14:05] LABS: Hematocrit 40.4 % (37.0-47.0); Hemoglobin 14.0 g/dL (12.2-16.2); Immature Granulocytes % 0.3 %; Mean Corpuscular HGB Conc 34.7 g/dL (31.8-35.4); Mean Corpuscular Hemoglobin 32.4 pg (27.0-31.2); Mean Corpuscular Volume 93.5 fl (81-99); Nucleated Red Blood Cells % 0 %; Platelet Count 229 K/mm3 (142-424); Red Blood Count 4.32 M/mm3 (4.20-5.40); Red Cell Distribution Width-SD 42.2 fL; White Blood Count 7.3 K/mm3 (4.8-10.8)
[2025-06-03 14:32] LABS: Chloride 104 mmol/L (98-107)
[2025-06-03 14:33] LABS: Albumin Level 4.7 g/dl (3.5-5.0); Potassium 4.2 mmoL/L (3.5-5.1); Sodium 139 mmol/L (136-145)
[2025-06-03 14:36] LABS: Alanine Aminotransferase 12 U/L (12-78); Alkaline Phosphatase 53 U/L (38-126); Anion Gap 15.2 mEq/L (5-15); Aspartate Amino Transferase 28 U/L (14-36); Bilirubin,Direct 0.0 mg/dl (0.0-0.4); Bilirubin,Indirect 0.5 mg/dL (0.0-0.9); Bilirubin,Total 0.5 mg/dl (0.2-1.3); Bilirubin,Unconjugated 0.6 mg/dL (0.0-1.1); Blood Urea Nitrogen 17 mg/dl (7-17); Calcium 10.4 mg/dl (8.4-10.2); Carbon Dioxide 24 mmol/L (22.0-30.0); Cholesterol 220 mg/dl (140-200); Creatinine,Serum 0.60 mg/dl (0.52-1.04); Estimated Glomerular Filt Rate 95 ml/min (>60); GFR (African American) 116 ML/MIN (>60); Glucose 105 mg/dl (74-100); Magnesium 1.5 mg/dl (1.6-2.3); Total Protein,Serum 7.5 g/dl (6.3-8.2); Triglycerides 172 mg/dl (30-150)
[2025-06-03 14:37] LABS: HDL Cholesterol 41 mg/dl (40-60)
[2025-06-03 14:53] LABS: Free T4 (Free Thyroxine) 1.25 ng/dl (0.78-2.19)
[2025-06-03 15:08] LABS: Thyroid Stimulating Hormone 1.41 uIU/mL (0.465-4.68)
== END 2025-06-03 23:59 | disposition home or self-care (01) ==
LOC: LAB 13:33
PROVIDERS: PCP Internal Medicine Adolescent Medicine; Visit Provider Nurse Practitioner
DX: E78.5 Hyperlipidemia, unspecified (principal); I10 Essential (primary) hypertension; R06.02 Shortness of breath; I71.20 Thoracic aortic aneurysm, without rupture, unspecified; R53.83 Other fatigue; R07.9 Chest pain, unspecified
CPT/HCPCS: 36415; 80048; 80061; 80076; 83735; 84439; 84443; 85025

== ENCOUNTER 2025-06-18 10:29 | Outpatient (CLI) | payer MEDICARE, SELFPAY ==
--- OUTSIDE RECORDS SUMMARY | 2024-10-10 06:00 | XMS_ITS ---
Author Organization [facility] Address [address] [facility] [address] [facility] [address] [place] [address] Care Team Providers Care Intensive Care Anaesthetist Name Role Phone Prasanna De La Rosa Primary Care Provider McNees, Sharath Unavailable [phone] Casandra SANTILLAN, SHARATH Unavailable Unavailable REASON FOR VISIT 3 month check up Encounters Encounter Location Date Provider Diagnosis [facility] [address] [place], [place] [address] 10/10/2024 Prasanna De La Rosa Plan Of Treatment Next Appt Details Provider Name:Prasanna De La Rosa, 06/19/2025 03:00:00 PM, [address], [address], [place], [place], [address], Progress Notes * Lili CATALANB:1940 ([age] yo F)Acc No.[id number]:10/10/2024 Progress Notes Patient: Michel GALAVIZ Leora Provider: Myron De La Rosa MD :1940 A ge:84 Y S ex:Female Date:10/10/2024 Address: [address], [place] Subjective: * Chief Complaints: * 1 . 3 month check up. * Medical History: Objective: * Vitals: Assessment: Plan: * Treatment: * * Electronic signature of Kendell De La Rosa MD FAAP on 06/18/2025 at 10:34 AM EDT Sign off status: Pending * Provider: Myron De La Rosa MD Date: 0 10/10/2024 Generated for Grace richards/Carmelo/Montserrat on: 0 06/18/2025 10:34 AM EDT
--- OUTSIDE RECORDS SUMMARY | 2024-12-22 17:30 | XMS_ITS ---
Author Organization [facility] Address [address] [place] [address] Care Team Providers Care Weapons System Instrument Mechanic Name Role Phone RjPrasanna Primary Care Provider [phone] Sharath Guajardo Unavailable [phone] SHARATH Guajardo APRN Unavailable Unavailable Migration, Provider Unavailable Unavailable REASON FOR VISIT [facility] To [facility] Conversion Encounter Medications Medication SIG (Take, [address] [place] [address] 12/22/2024 Provider Migration Bacterial conjunctivitis of left [...] La Rosa, 06/19/2025 03:00:00 PM, [address] [facility] [address], [address], [place], [address], Progress Notes * Larry CATALANaDOB:1940 ([age] yo F)Acc No.[id number]:12/22/2024 Patient: Michel GALAVIZLarrya Provider: Michel Washburn :1940 A ge:84 Y S ex:Female Date:12/22/2024 Address:[facility] [address] [facility] [address] Pcp:Prasanna De La Rosa Subjective: * Chief Complaints: * 1 . [facility] To [facility] Conversion Encounter. * Medical History: * [...] Electronic signature of Joanne haskins Migration on 06/18/2025 at 10:34 AM EDT Sign off status: Pending * Provider: Michel carter Migration Date: 0 12/22/2024 Generated for Grace richards/Carmelo/Maribellitting on: 0 06/18/2025 10:34 AM EDT
--- OUTSIDE RECORDS SUMMARY | 2025-05-29 07:15 | XMS_ITS ---
Author Organization [facility] D VI Address [address] [place] [address] Care Team Providers Care Wall To Wall Carpet Installer Name Role Phone Prasanna De La Rosa Primary Care Provider McNees, Ashley Unavailable [phone] McNees SECURITY STRATEGIST, ASHLEY Unavailable Unavailable Allergies No Known Allergies Results Component Value Reference Range Notes Urinalysis Reviewed date:05/29/2025 12:21:57 PM Interpretation: Performing Lab: Notes/Report: Color/Clarity yellow Leuk neg Nitrite neg Urobili 0.2 Protein neg pH 5.5 Blood trace-lysed Sp. Gr. 1.020 Ketone neg Bili neg Glucose neg REASON FOR VISIT 3 mo FU-fasting, dysuria Medications Medication SIG (Take, Route, Frequency, Duration) Notes Start Date End Date Status Loratadine 10 MG 1 tablet Orally Once a day; Duration: 30 days 05/29/2025 Active Melatonin 5 MG 1 cap(s) orally once a day (at bedtime) prn Active NIFEdipine ER Osmotic Release 30 mg TAKE TWO TABLETS BY MOUTH EVERY DAY; Duration: 90 Active Fluconazole 150 MG 1 tablet Orally martha y; Duration: 3 days 05/29/2025 Active Fluticasone Propionate 50 MCG/ACT 1 spray(s) in each nostril twice daily; Duration: 30 days 02/29/2024 Active Metoprolol Succinate ER 25 MG 1/2 tab orally at bedtime Ericka Ni Active Social History Tobacco Use: Social History Observation Description Date Details (start date - stop date) Never Smoker NA - NA Smoking: Question Answer Notes Are you a: nonsmoker Problems Problem Type SNOMED Code ICD Code Onset Dates Problem Status W/U Status Risk Notes Problem Dysuria (42381595) Dysuria (R30.0) Active confirmed Vital Signs Temperature 97.3 degrees Fahrenheit 05/29/20 25 Blood pressure systolic 124 mm Hg 05/29/20 25 Blood pressure diastolic 60 mm Hg 025 Heart Rate 94 /min 05/29/2025 Height 5 ft in 05/29/2025 Weight 114.6 lbs 05/29/2025 BMI 22.38 kg/m2 05/29/2025 Encounters Encounter Location Date Provider Diagnosis [facility] [address] [place] [address] 05/29/2025 Prasanna De La Rosa Dysuria R30.0 and Seasonal allergies J30.2 Assessments Encounter Date Diagnosis (ICD Code) Assessment Notes Treatment Notes Treatment Clinical Notes Section Notes 05/29/2025 Dysuria (ICD-10 - R30.0) - notes 3-4 days of dysuria, notcuria, and itching following urination - denies fevers or suprapubic pain, denies confusion, outside of these 4 days of symptoms has not had chornic discomfort, has not changed laundry detergents or introduced new irritants or emoiliants, denies skin thickening of the vagina - UA in office with negative leukocytes and negative nitrites, less concerning for bacterial UTI at this time, would be more concerning for vulvovaginal candidiasis given acuity and itching with urination - will provide one time dose of oral fluconazole and instructed patient if symptoms persist or worsen or if she develops fevers to please reach out to our clinic as soon as possible 05/29/2025 Seasonal allergies (ICD-10 - J30.2) - notes 3-4 days increased nasal congestion with nocturnal cough, no fevers or sick contacts, noted history of seasonal allergies with similar complaints - start taking daily loratadine and using intranasal flonase twice daily - Discussed the etiology and expected course of seasonal allergies. Discussed the importance of allergen avoidance if possible. Discussed a variety of allergy medications including Antihistamine and Nasal Corticosteroid. Counseled on importance of compliance and how to take these medications. If no improvement in a week, patient should return to office for repeat exam and labs at that time. Patient and family voice understanding and are agreeable to the plan of care above. Plan Of Treatment Medication Medication Name Sig Start Date Stop Date Notes Loratadine 10 MG 1 tablet Orally Once a day; Duration: 30 days 05/29/2025 Fluconazole 150 MG 1 tablet Orally martha y; Duration: 3 days 05/29/2025 Fluticasone Propionate 50 MCG/ACT 1 spray(s) in each nostril twice daily; Duration: 30 days 02/29/2024 Treatment Notes Assessment Notes Dysuria - notes 3-4 days of dysuria, notcuria, and itching following urination - denies fevers or suprapubic pain, denies confusion, outside of these 4 days of symptoms has not had chornic discomfort, has not changed laundry detergents or introduced new irritants or emoiliants, denies skin thickening of the vagina - UA in office with negative leukocytes and negative nitrites, less concerning for bacterial UTI at this time, would be more concerning for vulvovaginal candidiasis given acuity and itching with urination - will provide one time dose of oral fluconazole and instructed patient if symptoms persist or worsen or if she develops fevers to please reach out to our clinic as soon as possible Seasonal allergies - notes 3-4 days increased nasal congestion with nocturnal cough, no fevers or sick contacts, noted history of seasonal allergies with similar complaints - start taking daily loratadine and using intranasal flonase twice daily - Discussed the etiology and expected course of seasonal allergies. Discussed the importance of allergen avoidance if possible. Discussed a variety of allergy medications including Antihistamine and Nasal Corticosteroid. Counseled on importance of compliance and how to take these medications. If no improvement in a week, patient should return to office for repeat exam and labs at that time. Patient and family voice understanding and are agreeable to the plan of care above. Next Appt Details Follow Up: prn, Reason: Provider Name:Prasanna De La Rosa, 06/19/2025 03:00:00 PM, [address], [address], [place], [address], Progress Notes * Lili CATALANB:1940 ([age] yo F)Acc No.[id number]:05/29/2025 Progress Notes Patient: Leora MEJIA Provider: Myron De La Rosa MD :1940 A ge:84 Y S ex:Female Date:05/29/2025 Address: [address], [address], [place], [id number] Subjective: * Chief Complaints: * 1 . 3 mo FU-fasting. 2. Dysuria. * HPI: g en: Patient presents today, notes 4 days of increased nocturia with urinary burning and itching with urination. She notes she has not had this issue recently with last noted urinary symptoms being several years ago. She denies bleeding with urination or abnormal vaginal discharge. She denies abdominal pain, nausea, vomiting, or fevers. She also notes 3-4 days of increased coughing at night and nasal congestion. Again denies fevers or sick contacts. Notes she has not been using home allergy pill or home flonase. discussed with patient and intructed her to restart home loratadine and use intranasal fluticosone in each nostril twice daily for at least 2 weeks. * ROS: A LLERGY: Positive for n otes nightly cough with nasal congestion over last 3-4 days . S cratchy throat y es. E ar fullness yes. S inus congestion y es. R ESPIRATORY: no S hortness of breath. n o C hest pain. C ough y es. C ARDIOLOGY: no C hest pain. n o P alpitations. n o S hortness of breath. C ONSTITUTIONAL: no L oss of appetite. n o F ever. n o W eakness. * Medical History: H [place], Arthritis. * Surgical History: T otal hysterectomy , lt great toe surgery-bunion removal 05/2022. * Hospitalization/Major Diagno stic Procedure: T otal hysterectomy , [facility]. * Family History: F ather: , emphysema. M other: , colon cancer, diagnosed with Cancer. P aternal Grand Father: . P aternal Grand Mother: . M aternal Grand Father: . M aternal Grand Mother: . P aternal uncle: . P aternal aunt: . M aternal uncle: . M aternal aunt: . S yazmin: alive, 3 brothers , 2 sisters . Kermit wade: alive, 1 daughter -bone cancer-covid, diagnosed with Cancer. 6 brother(s) , 3 sister(s) . 1 son(s) , 2 daughter(s) . . * Social History: S moking A re you a: n onsmoker. R ecreational drug use: no. Exercise: yes, walking. Home smoke detector use: yes. Caffeine: yes, frequency:cappucino 1 daily. Living Will: Yes. Alcohol: no. Sexually active: no. Travel outside [place]: no. Occupation: Retired. * Medications: T aking Metoprolol Succinate ER 25 MG Tablet Extended Release 24 Hour 1/2 tab orally at bedtime , Notes to Pharmacist: Ericka Ni, Taking Melatonin 5 MG Capsule 1 cap(s) orally once a day (at bedtime) , Notes to Pharmacist: prn, Taking Fluticasone Propionate 50 MCG/ACT Suspension 1 spray(s) in each nostril twice daily , Taking NIFEdipine ER Osmotic Release 30 mg Tablet Extended Release 24 Hour TAKE TWO TABLETS BY MOUTH EVERY DAY , Discontinued Pantoprazole Sodium 40 MG Tablet Delayed Release 1 tablet 1/2 to 1 hour before morning meal Orally Once a day , Discontinued Famotidine 20 mg Tablet TAKE ONE TABLET BY MOUTH TWICE DAILY , Discontinued Loratadine 10 MG Tablet 1 tablet Orally Once a day , Medication List reviewed and reconciled with the patient * Allergies: N .K.D.A. Objective: * Vitals: N urse: jl, Pain: 0, Temp: 97.3, RR: 20, HR: 94, BP: 124/60, Ht: 5 ft, Wt: 114.6, BMI:22.38. * Examination: G eneral Examination: General P leasant and Cooperative, NAD on RA,. Oral cavity: M oist membranes. Chest: n ormal shape and expansion. Heart: R RR, No m/r/g, No edema,. HEENT: n ormal oropharynx, TM's normal, frontal and maxillary sinuses not ttp. Lungs: L ungs clear, No wheezes, crackles or rhonchi, Good air movement,. Abdomen: S oft, non-tender, No organomegaly or peritoneal signs.. Neurologic Exam: n o focal signs neurological deficits.? Skin: w ithout acute rashes. Back: n ormal,. neck s upple, n o lymphadenopathy,. Psych N ormal Mood/Affect. Assessment: * Assessment: 1. D ysuria - R30.0 (Primary) 2 . S easonal allergies - J30.2 ? Plan: * Treatment: Value Reference Range C olor/Clarity yellow * L euk neg * N itrite neg * U robili 0.2 * P rotein neg * p H 5.5 * B lood trace-lysed * S p. Gr. 1.020 * K etone neg * B khoa neg * G lucose neg * Cindy Parker 05/29/2025 11: 40:57 AM EDT > Notes: - notes 3-4 days of dysuria, notcuria, and itching following urination - denies fevers or suprapubic pain, denies confusion, outside of these 4 days of symptoms has not had chornic discomfort,has not changed laundry detergents or introduced new irritants or emoiliants, denies skin thickening of the vagina - UA in office with negative leukocytes and negative nitrites, less concerning for bacterial UTI atthis time, would be more concerning for vulvovaginal candidiasis given acuity and itching with urination - will provide one time dose of oral fluconazole and instructed patient if symptoms persist or worsen or if she develops fevers to please reach out to our clinic as soon as possible ??2.?Seasonal allergies? Refill Fluticasone Propionate Suspension, 50 MCG/ACT, 1 spray(s), in each nostril, twice daily, 30 days, 2, Refills 3;?Start Loratadine Tablet, 10 MG, 1 tablet, Orally, Once a day, 30 days, 30, Refills 3.?? Notes:- notes 3-4 days increased nasal congestion with nocturnal cough, no fevers or sick contacts, notedhistory of seasonal allergies with similar complaints - start taking daily loratadine and using intranasal flonase twice daily - Discussed the etiology and expected course of seasonal allergies. Discussed the importance of allergen avoidance if possible. Discussed a variety of allergy medications including Antihistamine and Nasal Corticosteroid. Counseled on importance of compliance and how to take these medications. If noimprovement in a week, patient should return to office for repeat exam and labs at that time. Patient and family voice understanding and are agreeable to the plan of care above.?? * Procedure Codes: 8 1002 URINALYSIS, Modifiers: QW * Follow Up: p rn * * Sign off status: Completed true * Provider: Myron De La Rosa MD Date: 0 05/29/2025 Generated for Remediosi susie/Carmelo/eTransmitting on: 0 06/18/2025 10:34 AM EDT History and Physical Notes * HPI (History of Present Illness) Category Sub-Category Detail Notes Category Not es gen Patient presents today, notes 4 days of increased nocturia with urinary burning and itching with urination. She notes she has not had this issue recently with last noted urinary symptoms being several years ago. She denies bleeding with urination or abnormal vaginal discharge. She denies abdominal pain, nausea, vomiting, or fevers. She also notes 3-4 days of increased coughing at night and nasal congestion. Again denies fevers or sick contacts. Notes she has not been using home allergy pill or home flonase. discussed with patient and intructed her to restart home loratadine and use intranasal fluticosone in each nostril twice daily for at least 2 weeks. Examination Category Sub-Category Detail Notes Category Not es General Examination HEENT: normal oroph arynx, TM's normal, frontal and maxillary sinuses not ttp Heart: RRR, No m/r/g, No ed mitzy, Lungs: Lungs clear, No whee zes, crackles or rhonchi, Good air movement, Abdomen: Soft, non-tender, No organomegaly or peritoneal signs. Skin: without acute rashes Neurologic Exam: no focal signs neuro logical deficits Oral cavity: Moist membranes Back: normal, Chest: normal shape and exp ansion neck supple, no lymphaden opathy, General Pleasant and Coopera tive, NAD on RA, Psych Normal Mood/Affect
--- OUTSIDE RECORDS SUMMARY | 2025-06-18 10:34 | XMS_ITS | Clinical Summary ---
Author Organization Healthcare Address [address] [place] [address] Care Team Providers Care Laborer Gold Leaf Name Role Phone Pcp, No Primary Care [...] Noted Date Diagnosed Date Hypertensive emergency 08/20/2023 Resolved Problems Problem Noted Date Diagnosed Date Resolved Date Nausea and vomiting, unspeci fied vomiting type 08/16/2023 06/09/2025 Social History Tobacco Use Types Packs/Day Years [...] place to sleep or slept in a detention (including now)? No 08/18/2023 CAGE ASSESSMENT Answer [...] drink first t telma in the morning (EYE-CALL PERSON) to steady your nerves or to get rid of a hangover? 0 08/18/2023 CAGE Questionnaire Score 0 023 Utilities Answer Date Recorded In the past 12 months has th e electric, gas, oil, or water company threatened to [...] kg (130 lb 4.7 oz) 08/16/2023 1:43 PM EST Height 152.4 cm (5') 08/16/2023 1:43 [...] [facility]-Zoster Vaccines (2 of 3) 02/23/2017 12/29/2016 [id number] Vaccine (4 - 2024- season) 2025 04/06/2022, 06/15/2021, 05/18/2021 [facility]-Influenza Vaccine [...] Adults <6.0% Children and Adolescents <7.5% Source: [place] [employer]. Standards of medical care in diabetes,2017. Diabetes Care.2017:40 (suppl 1):S1-S135. HbA1c assay performed by an ion-exchange chromatography method that is certified traceable to the DCCT. Mannie Suh MD LAB BLOOD ORDERABLES Final Resu lt [facility] [address] [place] [address] from Last 3 Months or Most Recently Relevant to Health Maintenance Insurance [address] [place] [address] MEDICARE Advance Directives Documents on File Type Date Recorded Patient Director Medical Science Expl anation Power of Csw 08/23/2023 7:15 AM Advance Directives and Livin g Will 08/23/2023 7:15 AM * Full Code (Latest Code Status on File) Date Activated Date Inactivated Comments 08/16/2023 1:29 PM 08/20/2023 4:24 PM Question Answer Comments Patient has decision-making capacity? No Healthcare Surrogate: Adult child of the patient Care Teams Laborer Gold Leaf Relationship Specialty Start Date End Date Pcp, Thelma [address] [place] [address] PCP - General Family Medicine 08/16/23
--- OUTSIDE RECORDS SUMMARY | 2025-06-18 10:34 | XMS_ITS | Patient Health Record ---
Author Organization Formerly [facility] Address [address] [place] [address] Care Team Providers Care Power Project Manager Name Role Phone Prasanna De La Rosa Primary Care Provider [phone] McNees, Ashley Unavailable [phone] Casandra SANTILLAN, ASHLEY Unavailable Unavailable Diana Ortiz Unavailable [phone] Diana Jensen Unavailable [phone] Migration, Provider Unavailable Unavailable Allergies No Known Allergies Results Component Value Reference Range Notes Urinalysis Reviewed date:05/29/2025 12:21:57 PM Interpretation: Performing Lab: Notes/Report: Color/Clarity yellow Leuk neg Nitrite neg Urobili 0.2 Protein neg pH 5.5 Blood trace-lysed Sp. Gr. 1.020 Ketone neg Bili neg Glucose neg COMPREHENSIVE METABOLIC PANE L (57767) Reviewed date:07/11/2024 07:56:43 AM Interpretation: Performing Lab:CB, [facility] [id number] [facility] [address] [place] HospitalMhuhWO[address] Sylvester Schuster Notes/Report: NON-FASTING; NON-FASTING; NON-FASTING; NON-FASTING [...] 17 10-35 U/L ALT 8 6-29 U/L LIPID PANEL, STANDARD (7600) Reviewed date:07/11/2024 07:56:43 AM Interpretation: Performing Lab:DOREEN [employer].come[address] [place], PolitapollEozaQS[address] Sylvester Schuster Notes/Report: NON-FASTING; NON-FASTING; NON-FASTING; NON-FASTING FASTING:YES FASTING: YES CHOLESTEROL, TOTAL 222 <200 mg/dL HDL CHOLESTEROL 43 > OR = 50 mg/dL TRIGLYCERIDES 169 <150 mg/dL LDL-CHOLESTEROL 148 Reference range: <100 Desirable range <100 mg/dL for primary prevention; <70 mg/dL for patients with CHD or diabetic patients with > or = 2 CHD risk factors. LDL-C is now calculated using the Steven-Figueroa calculation, which is a validated novel method providing better accuracy than the Friedewald equation in the estimation of LDL-C. Steven SS et al. ANGELIC. 2013;310(19): 7235-6717 (http://education.[employer].com/faq/FAQ16 4) CHOL/HDLC RATIO 5.2 <5.0 (calc) NON HDL CHOLESTEROL 179 <130 mg/dL (calc) For patients with diabetes plus 1 major ASCVD risk factor, treating to a non-HDL-C goal of <100 mg/dL (LDL-C of <70 mg/dL) is considered a therapeutic option. THYROID PANEL WITH TSH (7444 ) Reviewed date:07/11/2024 07:56:43 AM Interpretation: Performing Lab:DOREEN [employer]come[address], PolitapollZfrqFN[address] Sylvester Schuster Notes/Report: NON-FASTING; NON-FASTING; NON-FASTING; NON-FASTING FASTING:YES FASTING: YES T3 UPTAKE 27 22-35 % T4 (THYROXINE), TOTAL 8.7 5.1-11.9 mcg/dL FREE T4 INDEX (T7) 2.3 1.4-3.8 TSH 1.50 0.40-4.50 mIU/L CBC (INCLUDES DIFF/PLT) (639 9) Reviewed date:07/11/2024 07:56:44 AM Interpretation: Performing Lab:CB, [facility] Ozcx[address]47 [facility], [place] HospitalVbkcYL[address] Sylvester Schuster Notes/Report: NON-FASTING; NON-FASTING; NON-FASTING; NON-FASTING [...] MPV 10.3 7.5-12.5 fL ABSOLUTE NEUTROPHILS 3105 1424-4702 cells/uL ABSOLUTE LYMPHOCYTES 2428 850-3900 cells/uL ABSOLUTE MONOCYTES 476 200-950 cells/uL ABSOLUTE EOSINOPHILS 61 15-500 cells/uL ABSOLUTE BASOPHILS 31 0-200 cells/uL NEUTROPHILS 50.9 LYMPHOCYTES 39.8 MONOCYTES 7.8 EOSINOPHILS 1.0 BASOPHILS 0.5 M-Complete Blood Count Auto Diff Reviewed date:02/25/2025 09:09:15 AM Interpretation: Performing Lab: Notes/Report: WBC 6.7 4.8-10.8 K/mm3 RBC 4.24 4.20-5.40 M/mm3 HGB 13.3 12.2-16.2 g/dL HCT 40.3 37.0-47.0 % MCV 95.0 81-99 fl MCH 31.4 27.0-31.2 pg MCHC 33.0 31.8-35.4 g/dL RDW 12.4 11.5-17.5 % PLT 207 142-424 K/mm3 MPV 9.8 7.4-10.4 fl NE% 52.0 37.0-80.0 % LY% 40.1 10-50 % MO% 6.1 1.7-9.3 % EO% 1.3 0.1-12.0 % BA% 0.4 0.1-2.0 % NE# 3.5 1.8-7.8 K/mm3 LY# 2.7 0.7-4.5 K/mm3 MO# 0.4 0.1-1.0 K/mm3 EO# 0.1 0.0-0.4 Kmm3 BA# 0.0 0-0.2 K/mm3 RDW-SD 43.3 NRBC% 0 IG% 0.1 NRBC# 0 IG# 0.01 M-Comprehensive Metabolic Pa jihan Reviewed date:02/25/2025 09:09:15 AM Interpretation: Performing Lab: Notes/Report: NA 137 136-145 mmol/L K 4.9 3.5-5.1 mmoL/L CL 105 98-107 mmol/L CO2 28 22.0-30.0 mmol/L GAP 8.9 5-15 mEq/L BUN 11 7-17 mg/dl CREATT 0.60 0.52-1.04 mg/dl GFRAA 116 >60 ML/MIN EGFR 95 >60 ml/min GLU 93 74-100 mg/dl CA 10.1 8.4-10.2 mg/dl BILIT 0.6 0.2-1.3 mg/dl AST 26 14-36 U/L ALT 10 12-78 U/L TP 7.6 6.3-8.2 g/dl ALB 4.8 3.5-5.0 g/dl GLOB 2.8 1.3-3.2 g/dL AGRATIO 1.7 1.1-1.8 ALP 51 38-126 U/L M-Magnesium Reviewed date:02/25/2025 09:09:15 AM Interpretation: Performing Lab: Notes/Report: MG 1.8 1.6-2.3 mg/dl M-Ferritin Reviewed date:02/25/2025 09:09:15 AM Interpretation: Performing Lab: Notes/Report: KELLY 318 11.1-264 ng/ml M-BNP Reviewed date:02/25/2025 09:09:15 AM Interpretation: Performing Lab: Notes/Report: BNPNTP 174 0-450 pg/mL Reason For Referral No Information Medications Medication SIG (Take, Route, Frequency, Duration) Notes Start Date End Date Status Loratadine 10 MG 1 tablet Orally Once a day; Duration: 30 days 05/29/2025 Active Fluconazole 150 MG 1 tablet Orally martha y; Duration: 3 days 05/29/2025 Active Melatonin 5 MG 1 cap(s) orally once a day (at bedtime) prn Active Fluticasone Propionate 50 MCG/ACT 1 spray(s) in each nostril twice daily; Duration: 30 days 02/29/2024 Active Metoprolol Succinate ER 25 MG 1/2 tab orally at bedtime Ericka Ni Active NIFEdipine ER Osmotic Release 30 mg TAKE TWO TABLETS BY MOUTH EVERY DAY; Duration: 90 Active Immunizations Vaccine Route Administration Date Status [...] Status W/U Status Risk Notes Problem Dysuria (61971881) Dysuria (R30.0) Active confi rmed Problem General examination of patient (933990713) Routine medical exam (Z00.00) Active confirmed Problem Gastroesophageal reflux disease (998441808) GERD without esophagitis (K21.9) Active confirmed Problem Seasonal allergy (032787319) Seasonal allergies (J30.2) Active confirmed Problem Inflammation of left sacroiliac joint (5537554467) 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) Active confirmed Problem Restless legs (54604663) RLS (restless legs syndrome) (G25.81) Active confirmed Problem Chronic pain (93268061) Other chronic pain (G89.29) Active confirmed Problem Lymphedema (660852938) Lymphedema of left lower extremity (I89.0) Active confirmed Problem Insomnia disorder related to another mental disorder (37974507) Psychophysiological insomnia (F51.04) Active confirmed Problem Acid reflux (642664939) Acid reflux (K21.9) Active confirmed Problem Accelerated essentia l hypertension (67519392) Accelerated essential hypertension (I10) Active confirmed Problem Malignant hypertension (65164018) Malignant hypertension (I10) Active confirmed Problem Gouty arthritis of left great toe (4309748548078587) Gouty arthritis of left great toe (M10.9) Active confirmed Problem Edema (458178330) Lower leg lawrence a (R60.0) Active confirmed Problem Hyperlipoproteinemia (4211975) Acquired 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) Active confirmed Vital Signs Heart Rate 94 /min 05/29/2025 Temperature 97.3 degrees Fahrenheit 05/29/2025 Blood pressure diastolic 60 mm Hg 05/29/2025 Height 5 ft in 05/29/2025 Blood pressure systolic 124 mm Hg 05/29/2025 Weight 114.6 lbs 05/29/2025 BMI 22.38 kg/m2 05/29/2025 Encounters Encounter Location Date Provider Diagnosis [facility] [address] [place] [address] 12/22/2024 Provider Migration Bacterial conjunctivitis of left eye H10.9 [facility] [address] [facility] [address] [place], [place] [address] 07/09/2024 Prasanna De La Rosa RLS (restless legs syndrome) G25.81 ; GERD without esophagitis K21.9 ; Accelerated essential hypertension I10 ; Acquired hyperlipoproteinemia E78.5 ; Immunization(s) administered Z23 ; Lower leg edema R60.0 and Routine medical exam Z00.00 [facility] [address] [facility] [address] [place], [place] [address] 08/06/2024 Diana Ortiz Bacterial conjunctiv itis of left eye H10.9 [facility] [address] [facility] [address] [place], [place] [address] 02/22/2025 Prasanna Besson Lower leg edema R60. 0 ; RLS (restless legs syndrome) G25.81 ; GERD without esophagitis K21.9 ; Lymphedema of left lower extremity I89.0 and Accelerated essential hypertension I10 [facility] [address] [facility] [address] [place] [address] 03/21/2025 Diana Rossiell Seasonal allergies J 30.2 [facility] [address] [facility] [address] [place] [address] 05/29/2025 Prasanna Rj Dysuria R30.0 and Se asonal allergies J30.2 [facility] [address] [facility] [address] [place] [address] 10/15/2024 Prasanna Besson [facility] [address] [facility] [address] [place], [place] [address] 10/15/2024 Prasannaroberto De La Rosa Assessments Encounter Date Diagnosis (ICD Code) Assessment Notes Treatment Notes Treatment Clinical Notes Section Notes 07/09/2024 GERD without esophagitis (ICD-10 - K21.9) [...] RLS (restless legs syndrome) (ICD-10 - G25.81) Pretty stable. Will check metabolic testing to see if there is any we do as far supplementations as the RLS is better but still present 02/22/2025 Lower leg edema (ICD -10 - R60.0) Leg edema does not seem to be from fluid. I do not think fluid medicines would help, patient's lungs are clear. Will check labs and make sure her BNP levels are not elevated and reassess if these are elevated. 03/21/2025 Seasonal allergies (ICD-10 - J30.2) Discussed the etiology and expected course of [...] agreeable to the plan of care above. 05/29/2025 Dysuria (ICD-10 - R30.0) - notes [...] agreeable to the plan of care above. 02/22/2025 GERD without esophagitis (ICD-10 - K21.9) Stable on PPI 07/09/2024 Accelerated essentia l hypertension (ICD-10 - I10) Patient reports monitoring at home and follows with Cardiology who has adjusted medications. Follow-up in 3-4 months. 02/22/2025 Lymphedema of left lower extremity (ICD-10 - I89.0) Patient has been through lymphedema therapy at [facility] before, does not think it helped much. No changes 07/09/2024 Acquired hyperlipoproteinemia (ICD-10 - E78.5) Continue to monitor labs 02/22/2025 Accelerated essentia l hypertension (ICD-10 - I10) Consider changing from calcium channel jalil because of edema but this has been really good for patient so we will do strategy as above before changing 07/09/2024 Immunization(s) administered (ICD-10 - Z23) 07/09/2024 [...] Order Date Physical Therapy : Lymphedema 07/09/2024 Next Appt Details Provider Name:Prasanna De La Rosa, 06/19/2025 03:00:00 PM, [address] [facility] [address] [facility], [address], [place], [address], Insurance Providers Payer Name Payer Address Payer Phone Subscriber Number Group Number Insured Name Patient Relationship to Insured Coverage Start Date Coverage End Date [facility] [address] [address] [place] [address] [id number] Guerrero, Leora Self - patient is the insured Medications Administered Medication Instructions Date of Administration Dosage Notes Dexamethasone 4mg Injection 03/16/2022 4 mg Dexamethasone 4mg Injection 04/29/2022 4 mg Medical (General) History Medical History History ICD Code HTN Arthritis Surgical History Surgery Date(Month/Year) Total hysterectomy lt great toe surgery-bunion removal 05/21 022 Hospitalization History Reason Date(Month/Year) -b/p 08/11 Total hysterectomy
--- NOTE | 2025-06-18 10:45 | CT_ITS ---
FINAL REPORT TECHNIQUE: The patient was injected with IV contrast. Axial images were obtained through the chest in a PE protocol. 3-D reconstruction images were also performed. Individualized dose reduction techniques using automated exposure control or adjustment of the MA and/or KV according to patient's size were employed. CLINICAL HISTORY: thoracic aortic aneurysm COMPARISON: 06/21/2024 FINDINGS: Mediastinal vasculature is adequately opacified. No pulmonary artery filling defects are identified to suggest PE. Again noted is ascending aortic aneurysm measuring up to 4.5 cm, well seen on image 45 of series 3 and stable. There is no aortic dissection. There is no axillary adenopathy. There is no hilar or mediastinal adenopathy. The heart size is normal. There is no pericardial or pleural effusion. A moderate hiatal hernia is noted. Limited images of the upper abdomen are unremarkable. No suspicious infiltrate or nodule is identified. Scarring is noted at the left lung base. IMPRESSION: Stable ascending aortic aneurysm. Moderate hiatal hernia. Reviewed, Interpreted and Dictated by Maurilio Wick MD Transcribed by Shadia Roca Authenticated and . [facility]
[2025-06-18] MEDS: IOPAMIDOL-370 (76%);100ML BOTTLE 75 ML IV (11:09)
[2025-06-18] MEDS: SODIUM CHLORIDE 0.9% 10ML SYR (RAD ONLY) 10 ML IV (11:09)
--- NOTE | 2025-06-18 14:00 | CA_ITS ---
APPROVED REPORT EXAM: Comprehensive 2D, Doppler, and color-flow Echocardiogram Community Liaison Officer: Ceci Mi RT(R) Ht: 5 ft 0 in Wt: 112lbs BSA: 1.46 BP: 102/60 mmHg Indications: chest pain, shortness of breath, thoracic AA 2D Dimensions LVEF (Ndiaye's) 50.90 % F: 54 - 74 LV Volume 51.70 mL F: 46 - 106 LV Volume Index 35.4 mL/m2 F: 29 - 61 LA Volume 19.30 mL LA Volume Index 13.22 mL/m2 (M/F) 16-34 EF AP4 59.60 % EF AP2 43.3 % EF BP 50.9 % GL Strain -19.2 % M-Mode Dimensions RVDd 2.85 cm (0.9-2.6) LA Diam 2.89 cm (1.9-4.0) LVDd 4.12 cm (3.5-5.7) LVDs 3.22 cm (3.5-5.7) IVSd 0.64 cm (0.6-1.1) PWd 0.74 cm (0.6-1.1) EF (Teich) 44.60% FS 21.80% EDV (Teich) 75.10 mL ESV (Teich) 41.60 mL LV Diastology E Decel Time 243 (160-240 msec) E/A Ratio 0.7 Aortic Valve NICK Index 1.66 cm2/m2 AoV Peak Barry. 99.0 (50-130 cm/s) AI PHT 677.00 ms AO Peak GR. 3.90 mmHg AO Mean GR. 1.90 (<5 mmHg) AO VTI 22.6 (18-25 cm) NICK (VTI) 2.48 (2.5-4.5 cm2) Mitral Valve MV E Max Barry. 69.0 (40-130 cm/s) MV A Velocity 100.0 (40-130 cm/s) E/A Ratio 0.69 MV PHT 71.0 ms Tricuspid Valve TR P. Velocity 271.00 cm/s Left Ventricle The left ventricle is normal size. Left ventricular systolic function is normal. The left ventricular ejection fraction is within the normal range. There is increased left ventricular wall thickness. Proximal septal thickening is present. There is normal LV segmental wall motion. The left ventricular diastolic function is indeterminate. LVEF is 55%. Right Ventricle The right ventricle is mildly dilated. The right ventricular systolic function is normal. Atria The left atrium is moderately dilated. The right atrium is moderately dilated. There is no color Doppler evidence of interatrial shunt. Aortic Valve The aortic valve is mildly thickened. There is no hemodynamically significant aortic valvular stenosis. Mild to moderate aortic regurgitation is present. Mitral Valve The mitral valve is normal in structure. No evidence of mitral valve stenosis. Mild mitral regurgitation is present. Tricuspid Valve The tricuspid valve leaflets are thin and pliable. Mild tricuspid regurgitation. RVSP is 30-35 mmHg. Pulmonic Valve The pulmonary valve is grossly normal in structure. Mild pulmonic valve regurgitation is present. Great Vessels The aortic root is normal in size. The ascending aorta is mildly dilated, measuring 4.4 cm in diameter. IVC is normal in size and collapses >50% with inspiration. Pericardium There is no pericardial effusion. Other Information Study Quality: Fair Conclusion Normal biventricular systolic function. Mild RV dilation. Biatrial dilation. Mild to moderate AI. Mild MR, mild TR, mild PI. The ascending aorta is mildly dilated, measuring 4.4 cm in diameter. Electronically signed by : Ericka Ni MD 06/19/2025 17:43:48
== END 2025-06-18 23:59 | disposition home or self-care (01) ==
LOC: RAD 10:31
PROVIDERS: PCP Internal Medicine Adolescent Medicine; Visit Provider Nurse Practitioner
DX: I08.8 Other rheumatic multiple valve diseases (principal); I11.9 Hypertensive heart disease without heart failure; I71.21 Aneurysm of the ascending aorta, without rupture; K44.9 Diaphragmatic hernia without obstruction or gangrene; E78.5 Hyperlipidemia, unspecified
CPT/HCPCS: 71275; 93306; Q9967

== ENCOUNTER 2025-06-19 10:04 | Outpatient (CLI) | payer MEDICARE, SELFPAY ==
--- OUTSIDE RECORDS SUMMARY | 2024-12-22 17:30 | XMS_ITS ---
Author Organization [facility] Address [address] [place] [address] Care Team Providers Care Pharmacy Informatics Manager Name Role Phone RjPrasanna Primary Care Provider Sharath Guajardo Unavailable [phone] SHARATH Guajardo APRN Unavailable Unavailable Migration, Provider Unavailable Unavailable REASON FOR VISIT [facility] Conversion Encounter Medications Medication SIG (Take, [address] [place] [address] 12/22/2024 Provider Migration Bacterial conjunctivitis of left [...] La Rosa, 06/19/2025 03:00:00 PM, [address] [facility] [address], [address], [place], [address], Progress Notes * Larry CATALANaDOB:1940 ([age] yo F)Acc No.[id number]:12/22/2024 Patient: Michel GALAVIZLarrya Provider: Michel Washburn :1940 A ge:84 Y S ex:Female Date:12/22/2024 Address:[facility] [address], [facility] [address] Pcp:Prasanna De La Rosa Subjective: * Chief Complaints: * 1 . [facility] To [facility] Conversion Encounter. * Medical History: * [...] Electronic signature of Joanne haskins Migration on 06/19/2025 at 10:40 AM EDT Sign off status: Pending * Provider: Michel carter Migration Date: 0 12/22/2024 Generated for Grace richards/Carmelo/Maribellitting on: 1 10:40 AM EDT
--- OUTSIDE RECORDS SUMMARY | 2025-05-29 07:15 | XMS_ITS ---
Author Organization [facility] D VI Address [address] [place] [address] Care Team Providers Care Sales Project Engineer Name Role Phone Prasanna De La Rosa Primary Care Provider [phone] McNees, Ashley Unavailable [phone] McNees EXPERIMENTAL WORKER, ASHLEY Unavailable Unavailable Allergies No Known Allergies [...] Status W/U Status Risk Notes Problem Dysuria (41172705) Dysuria (R30.0) Active confirmed Vital Signs Temperature 97.3 degrees Fahrenheit 05/29/20 25 Blood pressure systolic 124 mm Hg 05/29/20 25 Blood pressure diastolic 60 mm Hg 025 Heart Rate 94 /min 05/29/2025 Height 5 ft in 05/29/2025 Weight 114.6 lbs 05/29/2025 BMI 22.38 kg/m2 05/29/2025 Encounters Encounter Location Date Provider Diagnosis [facility] P[facility] [address] [place] [address] 05/29/2025 Prasanna De La Rosa Dysuria R30.0 [...] [address], [address], [place], [address], Progress Notes * Lili CATALANB:1940 ([age] yo F)Acc No.[id number]:05/29/2025 Progress Notes Patient: Leora MEJIA Provider: Myron De La Rosa MD :1940 A ge:84 Y S ex:Female Date:05/29/2025 Address: [address], [address], [place], [id number] Subjective: * Chief Complaints: * 1 . [...] 0 05/29/2025 Generated for Remediosi susie/Carmelo/eTransmitting on: 1 10:40 AM EDT History and Physical Notes * [...]
--- NOTE | 2025-06-19 | CA_ITS ---
APPROVED REPORT Exam: Pharmacologic Technologist: Sanjana Salmon Ht: 5 ft 0 in Wt: 113 lbs BSA: 1.46 m2 HR: 75 bpm BP: 152/60 mmHg Medical History Medications: Flonase, Loratadine, Melatonin, Metorprolol Succinate ER, Nifedipine ER. Stress Test Details Test: Lexiscan Reason for pharmacologic stress test: physical limitation. HR Resting HR: 75 bpm Max Heart Rate (APMHR): 137.045271 bpm Max HR Achieved: 102 bpm Target HR (85% APMHR): 116.964935 bpm % of APMHR: 74.45 Recovery HR: 92 bpm BP Resting BP: 152.0/60.0 mmHg Max BP: 152.0/60.0 mmHg Recovery BP: 144.0/61.0 mmHg ECG Resting ECG: SR Stress ECG Conclusion Symptoms: Dizziness. Arrhythmias/Ectopy: None. ST-T Changes: less than 0.5mm upsloping ST segment changes. Conclusion: Nondiagnostic ECG/Lexiscan. Electronically signed by : Ericka Ni MD 06/19/2025 17:18:48
--- OUTSIDE RECORDS SUMMARY | 2025-06-19 10:41 | XMS_ITS | Clinical Summary ---
Author Organization Healthcare Address [address] [place] [address] Care Team Providers Care Medical Transcription Radiology Name Role Phone Pcp, No Primary Care [...] place to sleep or slept in a long-term (including now)? No 08/18/2023 CAGE ASSESSMENT Answer [...] drink first t telma in the morning (EYE-SCHEDULING COORDINATOR) to steady your nerves or to get [...] UKY-Zoster Vaccines (2 of 3) 02/23/2017 12/29/2016 [id number] Vaccine (4 - 2024- season) 2025 04/06/2022, [...] Adults <6.0% Children and Adolescents <7.5% Source: [place] [employer]. Standards of medical care in diabetes,2017. Diabetes Care.2017:40 (suppl 1):S1-S135. HbA1c assay performed by an ion-exchange chromatography method that is certified traceable to the DCCT. Mannie Suh MD LAB BLOOD ORDERABLES Final Resu lt [facility] [address] [place] [address] from Last 3 Months or Most Recently Relevant to Health Maintenance Insurance [address] [place] [address] MEDICARE Advance Directives Documents on File Type Date Recorded Patient Toll Relief Operator Expl anation Power of Machine Overhauler 08/23/2023 7:15 AM Advance Directives and Livin g Will 08/23/2023 7:15 AM * Full Code (Latest Code Status on File) Date Activated Date Inactivated Comments 08/16/2023 1:29 PM 08/20/2023 4:24 PM Question Answer Comments Patient has decision-making capacity? No Healthcare Surrogate: Adult child of the patient Care Teams Medical Transcription Radiology Relationship Specialty Start Date End Date Pcp, Thelma [address] [place] [address] PCP - General Family Medicine 08/16/23
--- OUTSIDE RECORDS SUMMARY | 2025-06-19 10:41 | XMS_ITS | Patient Health Record ---
Author Organization [facility] VI Address [address] [place] [address] Care Team Providers Care Process Supervisor Name Role Phone Prasanna De La Rosa Primary Care Provider McNees, Ashley Unavailable [phone] Casandra SANTILLAN, SAHLEY Unavailable Unavailable Diana Ortiz Unavailable [phone] Diana Jensen Unavailable [phone] Migration, Provider Unavailable Unavailable Allergies No Known Allergies Results Component Value Reference Range Notes COMPREHENSIVE METABOLIC PANE L (81591) Reviewed date:07/11/2024 07:56:43 AM Interpretation: Performing Lab:DOREEN, [facility] [id number] [facility] [place] HospitalUeizCN[address] Sylvester Schuster Notes/Report: FASTING: YES FASTING:YES NON-FASTING; NON-FASTING; NON-FASTING; NON-FASTING GLUCOSE 98 65-99 mg/dL Fasting reference interval [...] Reviewed date:07/11/2024 07:56:43 AM Interpretation: Performing Lab:DOREEN [facility] [address], [place] Sylvester Schuster Notes/Report: NON-FASTING; NON-FASTING; NON-FASTING; NON-FASTING [...] LDL-C. Steven SS et al. ANGELIC. 2013;310(19): 5419-7097 ([email or web address]://[email or web address]/[email or web address] 4) CHOL/HDLC RATIO 5.2 <5.0 (calc) NON HDL CHOLESTEROL 179 <130 mg/dL (calc) For patients with diabetes plus 1 major ASCVD risk factor, treating to a non-HDL-C goal of <100 mg/dL (LDL-C of <70 mg/dL) is considered a therapeutic option. THYROID PANEL WITH TSH (7444 ) Reviewed date:07/11/2024 07:56:43 AM Interpretation: Performing Lab:DOREEN [facility] [address], [place] Sylvester Schuster Notes/Report: FASTING: YES FASTING:YES NON-FASTING; NON-FASTING; NON-FASTING; NON-FASTING T3 UPTAKE 27 22-35 % T4 (THYROXINE), TOTAL 8.7 5.1-11.9 mcg/dL FREE T4 INDEX (T7) 2.3 1.4-3.8 TSH 1.50 0.40-4.50 mIU/L Urinalysis Reviewed date:05/29/2025 12:21:57 PM Interpretation: Performing Lab: Notes/Report: Color/Clarity yellow Leuk neg Nitrite neg Urobili 0.2 Protein neg pH 5.5 Blood trace-lysed Sp. Gr. 1.020 Ketone neg Bili neg Glucose neg CBC (INCLUDES DIFF/PLT) (639 9) Reviewed date:07/11/2024 07:56:44 AM Interpretation: Performing Lab:CB, [facility] [address], [place] [facility] HospitalCcaqZC[address] Sylvester Schuster Notes/Report: NON-FASTING; NON-FASTING; NON-FASTING; NON-FASTING [...] MPV 10.3 7.5-12.5 fL ABSOLUTE NEUTROPHILS 3105 [phone] cells/uL ABSOLUTE LYMPHOCYTES 2428 850-3900 cells/uL ABSOLUTE [...] Status W/U Status Risk Notes Problem Dysuria (22590864) Dysuria (R30.0) Active confi rmed Problem General examination of patient (885711951) Routine medical exam (Z00.00) Active confirmed Problem Gastroesophageal reflux disease (493243360) GERD without esophagitis (K21.9) Active confirmed Problem Seasonal allergy (095023200) Seasonal allergies (J30.2) Active confirmed Problem Inflammation of left sacroiliac joint (3643750200) 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) Active confirmed Problem Restless legs (42500554) RLS (restless legs syndrome) (G25.81) Active confirmed Problem Chronic pain (45965219) Other chronic pain (G89.29) Active confirmed Problem Lymphedema (538818761) Lymphedema of left lower extremity (I89.0) Active confirmed Problem Insomnia disorder related to another mental disorder (72698282) Psychophysiological insomnia (F51.04) Active confirmed Problem Acid reflux (108627171) Acid reflux (K21.9) Active confirmed Problem Accelerated essentia l hypertension (68241788) Accelerated essential hypertension (I10) Active confirmed Problem Malignant hypertension (33614931) Malignant hypertension (I10) Active confirmed Problem Gouty arthritis of left great toe (2387647141548150) Gouty arthritis of left great toe (M10.9) Active confirmed Problem Edema (964153325) Lower leg lawrence a (R60.0) Active confirmed Problem Hyperlipoproteinemia (8984541) Acquired 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) Active confirmed Vital Signs Heart Rate 94 /min 05/29/2025 Temperature 97.3 degrees Fahrenheit 05/29/2025 Blood pressure diastolic 60 mm Hg 05/29/2025 Height 5 ft in 05/29/2025 Blood pressure systolic 124 mm Hg 05/29/2025 Weight 114.6 lbs 05/29/2025 BMI 22.38 kg/m2 05/29/2025 Encounters Encounter Location Date Provider Diagnosis [facility] [address] [place] [address] 12/22/2024 Provider Migration Bacterial conjunctivitis of left eye H10.9 [facility] [address] [facility] [address] [place], [place] [address] 07/09/2024 Prasanna De La Rosa RLS (restless legs syndrome) G25.81 ; GERD without esophagitis K21.9 ; Accelerated essential hypertension I10 ; Acquired hyperlipoproteinemia E78.5 ; Immunization(s) administered Z23 ; Lower leg edema R60.0 and Routine medical exam Z00.00 [facility] [address] [facility] [address] [place], [place] [address] 08/06/2024 Diana Ortiz Bacterial conjunctiv itis of left eye H10.9 [facility] [address] [facility] [address] [place] [address] 02/22/2025 Prasanna Besson Lower leg edema R60. 0 ; RLS (restless legs syndrome) G25.81 ; GERD without esophagitis K21.9 ; Lymphedema of left lower extremity I89.0 and Accelerated essential hypertension I10 [facility] [address] [facility] [address] [place] [address] 03/21/2025 Diana Rossiell Seasonal allergies J 30.2 [facility] [address] [facility] [address] [place] [address] 05/29/2025 Prasanna Rj Dysuria R30.0 and Se asonal allergies J30.2 [facility] [address] [facility] [address] [place] [address] 10/15/2024 Prasanna Besson [facility] [address] [facility] [address] [place], [place] [address] 10/15/2024 Prasannaroberto De La Rosa Assessments Encounter [...] Patient has been through lymphedema therapy at [facility] before, does not think it helped much. [...] La Rosa, 06/19/2025 03:00:00 PM, [address] [facility] [address] [facility], [address], [place], [address], Insurance Providers Payer Name Payer Address Payer Phone Subscriber Number Group Number Insured Name Patient Relationship to Insured Coverage Start Date Coverage End Date [facility] [address] [address] [place] [address] [id number] Guerrero, Leora Self - patient is [...]
--- NOTE | 2025-06-19 11:00 | NM_ITS ---
APPROVED REPORT Exam: Nuclear Stress Test Indication: cp..soa..palpitations..fatigue Patient Location: Outpatient Stress Tech: Iva Bernard [place] Tech:Sandra ReeseKENY RT(R)(N) Ht: 5 ft 0 in Wt: 114 lbs Bra Size: 36a HR: 77 bpm BP: 152/60 mmHg BSA: 1.47 m2 TID: 0.80 History: cp..soa..palpitations..fatigue Procedure: Patient received 0.4 mg of intravenous Lexiscan, resting heart rate 77 bpm, resting blood pressure 152/60 mmHg, with Lexiscan maximum heart rate achieved was 101 bpm which is 85 % of the maximum predicted heart rate and blood pressure was 140/76 mmHg. With Lexiscan, patient denied any complaint of chest pain. Cardiac Stress and Resting SPECT Images: Cardiac Stress and Resting SPECT images were obtained using technetium 99m Myoview 32.8 mCi stress and 10.91 mCi at rest. Resting and stress imaging in supine and prone imaging demonstrates no evidence of fixed or reversible perfusion defects. Gated imaging demonstrates normal global and regional LV systolic function. LVEF is calculated at 74%. Conclusion: No evidence of fixed or reversible perfusion defects. Gated imaging demonstrates normal global and regional LV systolic function. LVEF is calculated at 74%. Electronically signed by : Ericka Ni MD 06/19/2025 17:12:48
[2025-06-19 11:48] VITALS: BP 152/60; PULSE 75; RESP 14
[2025-06-19] MEDS: ISOTOPE MYOVIEW (PER STUDY) 1 DOSE IV (12:56)
[2025-06-19] MEDS: SODIUM CHLORIDE 0.9% 10ML SYR (RAD ONLY) 10 ML IV ×2 (12:56)
== END 2025-06-19 23:59 | disposition home or self-care (01) ==
LOC: RAD 10:04
PROVIDERS: PCP Internal Medicine Adolescent Medicine; Visit Provider Nurse Practitioner
DX: I71.20 Thoracic aortic aneurysm, without rupture, unspecified (principal); R07.9 Chest pain, unspecified; R06.02 Shortness of breath; R00.2 Palpitations; R53.83 Other fatigue; I10 Essential (primary) hypertension; E78.5 Hyperlipidemia, unspecified
CPT/HCPCS: 78452; 93017; 93018; A9502; J2785

== ENCOUNTER 2025-07-18 12:13 | Outpatient (CLI) | payer MEDICARE, SELFPAY ==
--- OUTSIDE RECORDS SUMMARY | 2024-10-10 06:00 | XMS_ITS ---
Author Organization [facility] Address [address] [facility] [address] [address] [facility] [address] [place] [address] Care Team Providers Care Master Plumber Name Role Phone Prasanna De La Rosa Primary Care Provider McNees, Sharath Unavailable [phone] Casandra SANTILLAN, SHARATH Unavailable Unavailable REASON FOR VISIT 3 month check up Encounters Encounter Location Date Provider Diagnosis [facility] [address] [place], [place] [address] 10/10/2024 Prasanna De La Rosa Plan Of Treatment Next Appt Details Provider Name:Prasanna De La Rosa, 09/02/2025 03:00:00 PM, [address], [address], [place], [place], [address], Progress Notes * Lili CATALANB:1940 ([age] yo F)Acc No.[id number]:10/10/2024 Progress Notes Patient: Michel GALAVIZ Leora Provider: Myron De La Rosa MD :1940 A ge:84 Y S ex:Female Date:10/10/2024 Address: [address], [address], [place] Subjective: * Chief Complaints: * 1 . 3 month check up. * Medical History: Objective: * Vitals: Assessment: Plan: * Treatment: * * Electronic signature of Kendell De La Rosa MD FAAP on 07/18/2025 at 12:16 PM EDT Sign off status: Pending * Provider: Myron De La Rosa MD Date: 0 10/10/2024 Generated for Grace richards/Carmelo/Montserrat on: 1 12:16 PM EDT
--- OUTSIDE RECORDS SUMMARY | 2024-12-22 17:30 | XMS_ITS ---
Author Organization [facility] Address [address] [place] [address] Care Team Providers Care Corporate Safety Coordinator Name Role Phone RjPrasanna Primary Care Provider [phone] Sharath Guajardo Unavailable [phone] SHARATH Guajardo APRN Unavailable Unavailable Migration, Provider Unavailable Unavailable REASON FOR VISIT [facility] To [facility] Conversion Encounter Medications Medication SIG (Take, Route, Frequency, Duration) Notes Start Date End Date Status Gentamicin Sulfate 0.3 % 1 gtt in each eye 4 times a day; Duration: 7 days 08/06/2024 Active Losartan Potassium 100 MG 1 tab(s) orally once a day; Duration: 90 days Active Famotidine 20 MG 1 tab(s) orally 2 times a day; Duration: 90 days Active Melatonin 5 MG 1 cap(s) orally once a day (at bedtime) Active Fluticasone Propionate 50 MCG/ACT 1 spray(s) in each nostril twice daily; Duration: 30 days 02/29/2024 Active Metoprolol Succinate ER 25 MG 1/2 tab orally at bedtime Ericka Daaboul Active NIFEDIPINE (EQV-PROCARDIA XL) 30 MG TAKE TWO TABLETS ORALLY ONCE A DAY; Duration: 90 DAYS *Please review for potential replacement for e-prescription and drug interaction check* Active Encounters Encounter Location Date Provider Diagnosis [facility] [address] [place] [address] 12/22/2024 Provider Migration Bacterial conjunctivitis of left eye H10.9 Assessments Encounter Date Diagnosis (ICD Code) Assessment Notes Treatment Notes Treatment Clinical Notes Section Notes 12/22/2024 Bacterial conjunctivitis of left eye (ICD-10 - H10.9) Plan Of Treatment Medication Medication Name Sig Start Date Stop Date Notes Gentamicin Sulfate 0.3 % 1 gtt in each eye 4 times a day; Duration: 7 days 08/06/2024 Famotidine 20 MG 1 tab(s) orally 2 times a day; Duration: 90 days NIFEDIPINE (EQV-PROCARDIA XL) 30 MG TAKE TWO TABLETS ORALLY ONCE A DAY; Duration: 90 DAYS *Please review for potential replacement for e-prescription and drug interaction check* Next Appt Details Provider Name:Prasanna De La Rosa, 09/02/2025 03:00:00 PM, [address] [facility] [address], [address], [place], [address], Progress Notes * Lili CATALANB:1940 ([age] yo F)Acc No.[id number]:12/22/2024 Patient: Michel GALAVIZLarrya Provider: Michel Washburn :1940 A ge:84 Y S ex:Female Date:12/22/2024 Address:[facility] [address] [facility] [address] Pcp:Prasanna De La Rosa Subjective: * Chief Complaints: * 1 . [facility] To [facility] Conversion Encounter. * Medical History: * Medications: T aking Metoprolol Succinate ER 25 MG Tablet Extended Release 24 Hour 1/2 tab orally at bedtime , Notes to Pharmacist: Ericka Ni, Taking Melatonin 5 MG Capsule 1 cap(s) orally once a day (at bedtime) , Taking Losartan Potassium 100 MG Tablet 1 tab(s) orally once a day , Taking Fluticasone Propionate 50 MCG/ACT Suspension 1 spray(s) in each nostril twice daily Objective: * Vitals: Assessment: * Assessment: 1. B acterial conjunctivitis of left eye - H10.9 (Primary) Plan: * Treatment: 2. O thers Start Famotidine Tablet, 20 MG, 1 tab(s), orally, 2 times a day, 90 days, 180 Tablet, Refills 1;?Refill NIFEDIPINE (EQV-PROCARDIA XL) TABLET, EXTENDED RELEASE, 30 MG, TAKE TWO TABLETS, ORALLY, ONCE A DAY, 90 DAYS, 180, Refills 1, Notes to Pharmacist: *Please review for potential replacement for e-prescription and drug interaction check*. * * Electronic signature of Joanne haskins Migration on 07/18/2025 at 12:16 PM EDT Sign off status: Pending * Provider: Michel carter Migration Date: 0 12/22/2024 Generated for Grace richards/Carmelo/Maribellitting on: 1 12:16 PM EDT
--- OUTSIDE RECORDS SUMMARY | 2025-05-29 07:15 | XMS_ITS ---
Author Organization [facility] D VI Address [address] [place] [address] Care Team Providers Care Chair Spring Assembler Name Role Phone Prasanna De La Rosa Primary Care Provider McNees, Ashley Unavailable [phone] McNees SEMICONDUCTOR WAFERS TESTER, ASHLEY Unavailable Unavailable Allergies No Known Allergies [...] Status W/U Status Risk Notes Problem Dysuria ([id number]) Dysuria (R30.0) Active confirmed Vital Signs Temperature 97.3 degrees Fahrenheit 05/29/20 25 Blood pressure systolic 124 mm Hg 05/29/20 25 Blood pressure diastolic 60 mm Hg 025 Heart Rate 94 /min 05/29/2025 Height 5 ft in 05/29/2025 Weight 114.6 lbs 05/29/2025 BMI 22.38 kg/m2 05/29/2025 Encounters Encounter Location Date Provider Diagnosis [facility] [address] [place] [address] 05/29/2025 Prasanna De La Rosa Dysuria R30.0 [...] prn, Reason: Provider Name:Prasanna De La Rosa, 09/02/2025 03:00:00 PM, [address], [address], [place], [address], Progress Notes * Lili CATALANB:1940 ([age] yo F)Acc No.[id number]:05/29/2025 Progress Notes Patient: Leora MEJIA Provider: Myron De La Rosa MD :1940 A ge:84 Y S ex:Female Date:05/29/2025 Address: [address], [address], [place], [id number] Subjective: * Chief Complaints: * 1 . [...] 0 05/29/2025 Generated for Remediosi susie/Carmelo/eTransmitting on: 12:16 PM EDT History and Physical Notes * HPI [...]
--- OUTSIDE RECORDS SUMMARY | 2025-06-19 11:00 | XMS_ITS ---
Author Organization [facility] VI Address [address] [place] [address] Care Team Providers Care Certified Green Building Engineer Name Role Phone Prasanna De La Rosa Primary Care Provider [phone] McNees, Ashley Unavailable [phone] McNees INTAKE ASSESSOR, ASHLEY Unavailable Unavailable Allergies No Known Allergies REASON FOR VISIT Annual Wellness, flu shot Medications Medication SIG (Take, Route, Frequency, Duration) Notes Start Date End Date Status Metoprolol Succinate ER 25 MG 1/2 tab orally at bedtime Ericka Daaboul Active NIFEdipine ER Osmotic Release 30 mg TAKE TWO TABLETS BY MOUTH EVERY DAY; Duration: 90 Active Melatonin 5 MG 1 cap(s) orally once a day (at bedtime) prn Active Fluticasone Propionate 50 MCG/ACT 1 spray(s) in each nostril twice daily; Duration: 30 days 02/29/2024 Active Loratadine 10 MG 1 tablet Orally Once a day; Duration: 30 days 05/29/2025 Active Immunizations Vaccine Route Administration Date Status Comme nts Fluzone High Dose IM Intramuscular 06/19/2025 Administered PCV-21 (pneumococcal 21-valent conjugate vaccine) IM Intramuscular 06/19/2025 Administered Social History Tobacco Use: Social History Observation Description Date Details (start date - stop date) Never Smoker NA - NA Smoking: Question Answer Notes Are you a: nonsmoker Problems Problem Type SNOMED Code ICD Code Onset Dates Problem Status W/U Status Risk Notes Problem Hypomagnesemia (413130241) Hypomagnesemia (E83.42) Active confirmed Vital Signs Temperature 97.7 degrees Fahrenheit 06/19/20 25 Blood pressure systolic 102 mm Hg 06/19/20 25 Blood pressure diastolic 62 mm Hg 025 Heart Rate 96 /min 06/19/2025 Height 5 ft in 06/19/2025 Weight 113.2 lbs 06/19/2025 BMI 22.11 kg/m2 06/19/2025 Encounters Encounter Location Date Provider Diagnosis [facility] [address] [place] [address] 06/19/2025 Prasanna De La Rsoa Accelerated essentia l hypertension I10 ; Other malaise R53.81 ; Other fatigue R53.83 ; Hypomagnesemia E83.42 ; Chest pain syndrome R07.9 ; Immunization(s) administered Z23 ; Encounter for immunization Z and Medicare annual wellness visit, subsequent Assessments Encounter Date Diagnosis (ICD Code) Assessment Notes Treatment Notes Treatment Clinical Notes Section Notes 06/19/2025 Accelerated essential hypertension (ICD-10 - I10) Patient BP was low normal on arrival, was low normal at program architect. Patient was told to cut down Nifedipine to 1 a day, will reevaluate in 2 weeks. 06/19/2025 Other malaise (ICD-10 - R53.81) See notes above about BP, will correct hypomagnesemia. Will review further cardiology testing 06/19/2025 Other fatigue (ICD-10 - R53.83) See notes above for malaise 06/19/2025 Hypomagnesemia (ICD-10 - E83.42) Hypomagnesemia discovered on lab work. Patient told to get Magnesium Citrate 400mg from store and take one a day to correct. will re-evaluate labs at later date. 06/19/2025 Chest pain syndrome (ICD-10 - R07.9) Multifactorial syndrome, is being evaluated by cardiology. Will continue to follow with cardiology and will re-assess in 2 weeks 06/19/2025 Immunization(s) administered (ICD-10 - Z23) 06/19/2025 Encounter for immunization (ICD-10 - Z23) 06/19/2025 Medicare annual wellness visit, subsequent (ICD-10 - Z.) Patient doing well, memory intact (3 word exam successful), no falls, able to live independently and get around without difficulty. Pression screening negative. Reviewed HRA. Plan Of Treatment Treatment Notes Assessment Notes Accelerated essential hypertension Patie nt BP was low normal on arrival, was low normal at program architect. Patient was told to cut down Nifedipine to 1 a day, will reevaluate in 2 weeks. Other malaise See notes above abou t BP, will correct hypomagnesemia. Will review further cardiology testing Other fatigue See notes above for malaise Hypomagnesemia Hypomagnesemia disco tatiana on lab work. Patient told to get Magnesium Citrate 400mg from store and take one a day to correct. will re-evaluate labs at later date. Chest pain syndrome Multifactorial syndr ome, is being evaluated by cardiology. Will continue to follow with cardiology and will re-assess in 2 weeks Medicare annual wellness visit, subseque nt Patient doing well, memory intact (3 word exam successful), no falls, able to live independently and get around without difficulty. Pression screening negative. Reviewed HRA. Next Appt Details Follow Up: prn,3 Months, Saundra son: Provider Name:Prasanna De La Rosa, 09/02/2025 03:00:00 PM, [address] [facility] [address], [place], [address], Progress Notes * Larry CATALANKunB:1940 ([age] yo F)Acc No.[id number]:06/19/2025 Progress notes Patient: Leora MEJIA Provider: Myron De La Rosa MD :1940 A ge:84 Y S ex:Female Date:06/19/2025 Address: [address], [place], [place] Subjective: * Chief Complaints: * 1 . Annual Wellness, flu shot. * HPI: g en: Patient presents today for her Annual Wellness Check. She states she is doing well. She went to the program architect yesterday and got a stress test and a CT. She states her blood pressure has been a little low and shes had some dizziness/lightheadedness in positional changes. She denies any numbness, chest pain, or vision changes. * Medical History: H [place], Arthritis. * [...] uncle: . M aternal aunt: . S iblings: alive, 3 brothers , 2 sisters . C hildren: alive, 1 daughter -bone cancer-covid, diagnosed with [...] bedtime) , Notes to Pharmacist: prn, Taking NIFEdipine ER Osmotic Release 30 mg Tablet Extended Release 24 Hour TAKE TWO TABLETS BY MOUTH EVERY DAY , Taking Fluticasone Propionate 50 MCG/ACT Suspension 1 spray(s) in each nostril twice daily , Taking Loratadine 10 MG Tablet 1 tablet Orally Once a day , Discontinued Fluconazole 150 MG Tablet 1 tablet Orally daily , Medication List reviewed and reconciled with the patient * Allergies: N .K.D.A. Objective: * Vitals: N urse: jl, Pain: 0, Temp: 97.7, RR: 20, HR: 96, BP: 102/62, Ht: 5 ft, Wt: 113.2, BMI:22.11. * Examination: G eneral Examination: General P leasant and Cooperative, NAD on RA,. Heart: R egular Rate and Rhythm, no murmur, rubs or gallops. HEENT: p harynx and tonsils normal, TM's normal. Lungs: L CTAB, No wheezes, crackles or rhonchi, Good air movement,. Abdomen: S oft, NTND, BSNA, No organomegaly or peritoneal signs.. Neurologic Exam: n o focal signs,, normal sensation, strength, tone and reflexes,, Alert and oriented x 3. Assessment: * Assessment: 1. A ccelerated essential hypertension - I10 (Primary) 2 . O ther malaise - R53.81 3 . O ther fatigue - R53.83 4 . H ypomagnesemia - E83.42 5 . C hest pain syndrome - R07.9 6 . I mmunization(s) administered - Z23 7 . E ncounter for immunization - Z23 8 . M [facility] annual wellness visit, subsequent - Z00.00 Plan: * Treatment: 2. O ther malaise Notes: See notes above about BP, will correct hypomagnesemia. Will review further cardiology testing 3. O ther fatigue Notes: See notes above for malaise 4. H ypomagnesemia Notes: Hypomagnesemia discovered on lab work. Patient told to get Magnesium Citrate 400mg from store and take one a day to correct. will re-evaluate labs at later date. 5. C hest pain syndrome Notes: Multifactorial syndrome, is being evaluated by cardiology. Will continue to follow with cardiology and will re-assess in 2 weeks 6. [facility] annual wellness visit, subsequent Notes: Patient doing well, memory intact (3 word exam successful), no falls, able to live independently and get around without difficulty. Pression screening negative. Reviewed HRA. * Immunizations: Fluzone High Dose : 0.5 mL (Dose No:1) (Route: Intramuscular) given by LAURENCE Moeller on Right Deltoid (Immunization(s) administered) PCV-21 (pneumococcal 21-valent conjugate vaccine) : 0.5 mL (Route: Intramuscular) given by AKHIL Nicholas on Left Deltoid (Encounter for immunization) * Procedure Codes: 9 0662 Influenza High Dose Vaccine >65 Years Old, G0008 ADMINISTRATION-FLU VACCINE MEDICARE ONLY, 21222 PCV21 VACCINE IM, 51152 ADMINISTRATION IMMUNIZATION ONE VACCINE, G2211 Complex e/m visit add on, G0439 ANNUAL WELLNESS VST; PPS SUBSQT VST, 1170F FUNCTIONAL STATUS ASSESSMENT, G8399 PT W/DXA DOCUMENT OR ORDER, 1123F ADVANCED DIRECTIVE - HAS A LIVING WILL, G8420 BMI documented as normal, no follow up required., G8510 NEGATIVE SCREENING F/U NOT REQUIRED, G9903 Pt scrn tbco id as non user, 1036F TOBACCO NON-USER, G8752 Most recent systolic blood pressure < 140mmhg, G8754 Most recent diastolic blood pressure < 90mmhg, G9744 PATIENT NOT ELIG D/T ACTIVE DX HTN * Follow Up: p rn,3 Months * * Sign off status: Completed true * Provider: Myron De La Rosa MD Date: Generated for Grace richards/Carmelo/eTransmitting on: 12:16 PM EDT History and Physical Notes * HPI (History of Present Illness) Category Sub-Category Detail Notes Category Not es gen Patient present s today for her Annual Wellness Check. She states she is doing well. She went to the program architect yesterday and got a stress test and a CT. She states her blood pressure has been a little low and shes had some dizziness/lightheadedness in positional changes. She denies any numbness, chest pain, or vision changes. Examination Category Sub-Category Detail Notes Category Not es General Examination HEENT: pharynx and tonsils normal, TM's normal Heart: Regular Rate and Rhy thm, no murmur, rubs or gallops Lungs: LCTAB, No wheezes, c rackles or rhonchi, Good air movement, Abdomen: Soft, NTND, BSNA, No organomegaly or peritoneal signs. Neurologic Exam: no focal signs,, nor mal sensation, strength, tone and reflexes,, Alert and oriented x 3 General Pleasant and Coopera tive, NAD on RA,
--- OUTSIDE RECORDS SUMMARY | 2025-07-08 10:30 | XMS_ITS ---
Author Organization [facility] Address [address] [place] [address] Care Team Providers Care Hotel Maintenance Worker Name Role Phone Prasanna De La Rosa Primary Care Provider McDakota Beali Unavailable [phone] Casandra SANTILLAN ASHLEY Unavailable Unavailable Allergies No Known Allergies REASON FOR VISIT 2 week follow up. Ears were hurting last night Medications Medication SIG (Take, Route, Frequency, Duration) Notes Start Date End Date Status Amoxicillin 875 MG 1 tablet Orally Twic e a day; Duration: 5 day(s) 07/08/2025 Active Kerendia 10 MG 1 tablet Orally Once a day Active Furosemide 20 MG 1 tablet Orally Once a day Active Melatonin 5 MG 1 cap(s) orally once a day (at bedtime) prn Active Metoprolol Succinate ER 25 MG 1/2 tab orally at bedtime Ericka Daaboul Active Fluticasone Propionate 50 MCG/ACT 1 spray(s) in each nostril twice daily; Duration: 30 days 02/29/2024 Active NIFEdipine ER Osmotic Release 30 mg 1 tab orally daily; Duration: 90 days Active Loratadine 10 MG 1 tablet Orally Once a day; Duration: 30 days 05/29/2025 Active Social History Tobacco Use: Social History Observation Description Date Details (start date - stop date) Never Smoker NA - NA Smoking: Question Answer Notes Are you a: nonsmoker Vital Signs Temperature 97.5 degrees Fahrenheit 07/08/20 25 Blood pressure systolic 110 mm Hg 07/08/20 25 Blood pressure diastolic 68 mm Hg 025 Heart Rate 84 /min 07/08/2025 Height 5 ft in 07/08/2025 Weight 112.6 lbs 07/08/2025 BMI 21.99 kg/m2 07/08/2025 Encounters Encounter Location Date Provider Diagnosis [facility] [address] [facility] [address] [facility] [address] [place] [address] 07/08/2025 Prasanna Bessonia Accelerated essentia l hypertension I10 and Acute recurrent maxillary sinusitis J01.01 Assessments Encounter Date Diagnosis (ICD Code) Assessment Notes Treatment Notes Treatment Clinical Notes Section Notes 07/08/2025 Accelerated essential hypertension (ICD-10 - I10) Doing well with lower dose blood pressure medication. Only on 30 mg nifedipine daily. Stay on the 1 tablet. No changes in plan, labs at next visit 07/08/2025 Acute recurrent maxillary sinusitis (ICD-10 - J01.01) New prescription noted. Discussed side effects of antibiotics, discussed supportive care, discussed return criteria Plan Of Treatment Medication Medication Name Sig Start Date Stop Date Notes Amoxicillin 875 MG 1 tablet Orally Twic e a day; Duration: 5 day(s) 07/08/2025 Treatment Notes Assessment Notes Accelerated essential hypertension Doing well with lower dose blood pressure medication. Only on 30 mg nifedipine daily. Stay on the 1 tablet. No changes in plan, labs at next visit Acute recurrent maxillary sinusitis New prescription noted. Discussed side effects of antibiotics, discussed supportive care, discussed return criteria Next Appt Details Follow Up: prn, Reason: Provider Name:Prasanna De La Rosa, 09/02/2025 03:00:00 PM, [address] [facility] [address] [facility], [address], [place], [address], Progress Notes * Lili CATALANB:1940 ([age] yo F)Acc No.[id number]:07/08/2025 Progress Notes Patient: Leora MEJIA Provider: Myron De La Rosa MD :1940 A ge:84 Y S ex:Female Date:07/08/2025 Address: [address], [place] Subjective: * Chief Complaints: * 1 . 2 week follow up. Ears were hurting last night. * HPI: g en: Overall feels good with 1 last blood pressure medicine. I had her go down to 1 tablet of nifedipine daily. No problems. Does note that she has some ear pain. Feels like she is having a lot of sneezing and that her face hurts. * Medical History: H [place], Arthritis. * [...] uncle: . M aternal aunt: . S ibsoni: alive, 3 brothers , 2 sisters . C sheri: alive, 1 daughter -bone cancer-covid, diagnosed with [...] no. Occupation: Retired. * Medications: T aking Furosemide 20 MG Tablet 1 tablet Orally Once a day , Taking Kerendia 10 MG Tablet 1 tablet Orally Once a day , Taking Metoprolol Succinate ER 25 MG Tablet Extended Release 24 Hour 1/2 tab orally at bedtime , Notes to Pharmacist: Ericka Ni, Taking Melatonin 5 MG Capsule 1 cap(s) orally once a day (at bedtime) , Notes to Pharmacist: prn, Taking NIFEdipine ER Osmotic Release 30 mg Tablet Extended Release 24 Hour 1 tab orally daily , Taking Fluticasone Propionate 50 MCG/ACT Suspension 1 spray(s) in each nostril twice daily , Taking Loratadine 10 MG Tablet 1 tablet Orally Once a day , Medication List reviewed and reconciled with the patient * Allergies: N .K.D.A. Objective: * Vitals: N urse: KJ, Pain: 0, Temp: 97.5, RR: 16, HR: 84, BP: 110/68, Ht: 5 ft, Wt: 112.6, BMI:21.99. * Examination: G eneral Examination: B lood pressure looks great, tympanic membrane is retracted but clear. Maxillary sinuses are tender bilaterally. Oropharynx with some thick postnasal drainage Heart rate regular, lungs clear. Assessment: * Assessment: 1. A ccelerated essential hypertension - I10 (Primary) 2 . A cute recurrent maxillary sinusitis - J01.01 Plan: * Treatment: 2. A cute recurrent maxillary sinusitis Start Amoxicillin Tablet, 875 MG, 1 tablet, Orally, Twice a day, 5 day(s), 10. Notes: New prescription noted. Discussed side effects of antibiotics, discussed supportive care, discussed return criteria * Follow Up: p rn * * Sign off status: Completed true * Provider: Myron De La Rosa MD Date: Generated for Grace richards/Carmelo/Maribellitting on: 12:15 PM EDT History and Physical Notes * HPI (History of Present Illness) Category Sub-Category Detail Notes Category Not es gen Overall feels good with 1 last blood pressure medicine. I had her go down to 1 tablet of nifedipine daily. No problems. Does note that she has some ear pain. Feels like she is having a lot of sneezing and that her face hurts Examination Category Sub-Category Detail Notes Category Not es General Examination Blood pressure looks great, tympanic membrane is retracted but clear. Maxillary sinuses are tender bilaterally. Oropharynx with some thick postnasal drainage Heart rate regular, lungs clear
--- OUTSIDE RECORDS SUMMARY | 2025-07-18 12:16 | XMS_ITS | Patient Health Record ---
Author Organization [facility] Address [address] [place] [address] Care Team Providers Care Boiler Engineer Name Role Phone Prasanna De La Rosa Primary Care Provider McNees, Sharath Unavailable [phone] Casandra JEWELER APPRENTICE, SHARATH Unavailable Unavailable Diana Ortiz Unavailable [phone] Diana Jensen Unavailable [phone] Migration, Provider Unavailable Unavailable Allergies No Known Allergies Results Component Value Reference Range Notes Urinalysis Reviewed date:05/29/2025 12:21:57 PM Interpretation: Performing Lab: Notes/Report: Color/Clarity yellow Leuk neg Nitrite neg Urobili 0.2 Protein neg pH 5.5 Blood trace-lysed Sp. Gr. 1.020 Ketone neg Bili neg Glucose neg M-Complete Blood Count Auto Diff Reviewed date:02/25/2025 [...] Comme nts Fluzone High Dose IM Intramuscular 08/24/2023 Administered Fluzone High Dose IM Intramuscular 08/05/2022 Administered PCV-21 (pneumococcal 21-valent conjugate vaccine) IM Intramuscular 06/19/2025 Administered Prevnar PCV-13 (Pneumococcal conjugate 13) Unknown 06/10/2017 Administered Fluzone High Dose IM Intramuscular 06/19/2025 Administered Fluzone High Dose IM Intramuscular 07/09/2024 Administered Arexvy IM Intramuscular 07/09/2024 Administered Social History Tobacco Use: Social History Observation Description Date Details (start date - stop date) Never Smoker NA - NA Smoking: Question Answer Notes Are you a: nonsmoker Problems Problem Type SNOMED Code ICD Code Onset Dates Problem Status W/U Status Risk Notes Problem Hypomagnesemia (108235468) Hypomagnesemia (E83.42) Active confirmed Problem Dysuria (59632524) Dysuria (R30.0) Active confi rmed Problem General examination of patient (108945184) Routine medical exam (Z00.00) Active confirmed Problem Gastroesophageal reflux disease (544330218) GERD without esophagitis (K21.9) Active confirmed Problem Seasonal allergy (170161449) Seasonal allergies (J30.2) Active confirmed Problem Inflammation of left sacroiliac joint (6555484952) 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) Active confirmed Problem Restless legs (06945908) RLS (restless legs syndrome) (G25.81) Active confirmed Problem Chronic pain (58837254) Other chronic pain (G89.29) Active confirmed Problem Lymphedema (837333017) Lymphedema of left lower extremity (I89.0) Active confirmed Problem Insomnia disorder related to another mental disorder (24090401) Psychophysiological insomnia (F51.04) Active confirmed Problem Acid reflux (853350916) Acid reflux (K21.9) Active confirmed Problem Accelerated essentia l hypertension (05390153) Accelerated essential hypertension (I10) Active confirmed Problem Malignant hypertension (52979490) Malignant hypertension (I10) Active confirmed Problem Gouty arthritis of left great toe (2918212003719086) Gouty arthritis of left great toe (M10.9) Active confirmed Problem Edema (742064632) Lower leg lawrence a (R60.0) Active confirmed Problem Hyperlipoproteinemia (8459628) Acquired 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) Active confirmed Vital Signs Heart Rate 84 /min 07/08/2025 Temperature 97.5 degrees Fahrenheit 07/08/2025 Blood pressure diastolic 68 mm Hg 07/08/2025 Height 5 ft in 07/08/2025 Blood pressure systolic 110 mm Hg 07/08/2025 Weight 112.6 lbs 07/08/2025 BMI 21.99 kg/m2 07/08/2025 Encounters Encounter Location Date Provider Diagnosis [facility] [address] [place] [address] 12/22/2024 Provider Migration Bacterial conjunctivitis of left eye H10.9 [facility] [address] [place] [address] 08/06/2024 Diana Ortiz Bacterial conjunctivitis of left eye H10.9 [facility] [address] [facility] [address] [place] [address] 02/22/2025 Prasanna De La Rosa Lower leg edema R60. 0 ; RLS (restless legs syndrome) G25.81 ; GERD without esophagitis K21.9 ; Lymphedema of left lower extremity I89.0 and Accelerated essential hypertension I10 [facility] [address] [facility] [address] [place] [address] 03/21/2025 Diana Jensen Seasonal allergies J30.2 [facility] [address] [facility] [address] [place] [address] 05/29/2025 Prasanna Besson Dysuria R30.0 and Seasonal allergies J30.2 [facility] [address] [place] [address] 06/19/2025 Prasanna Besson Accelerated essentia l hypertension I10 ; Other malaise R53.81 ; Other fatigue R53.83 ; Hypomagnesemia E83.42 ; Chest pain syndrome R07.9 ; Immunization(s) administered Z23 ; Encounter for immunization Z23 and Medicare annual wellness visit, subsequent Z00.00 [facility] [address] [facility] [address] [place] [address] 07/08/2025 Prasanna Besson Accelerated essentia l hypertension I10 and Acute recurrent maxillary sinusitis J01.01 [facility] [address] [facility] [address] [place] [address] 10/15/2024 Prasanna Besson [facility] [address] [facility] [address] [place], [place] [address] 10/15/2024 Prasanna Besson Assessments Encounter Date Diagnosis (ICD Code) Assessment Notes Treatment Notes Treatment Clinical Notes Section Notes 08/06/2024 Bacterial conjunctivitis of left eye (ICD-10 [...] but still present 02/22/2025 Lower leg edema (ICD-10 - R60.0) Leg edema does not seem [...] agreeable to the plan of care above. 07/08/2025 Acute recurrent maxillary sinusitis (ICD-10 - J01.01) New prescription noted. Discussed side effects of antibiotics, discussed supportive care, discussed return criteria 07/08/2025 Accelerated essential hypertension (ICD-10 - I10) Doing well with lower dose blood pressure medication. Only on 30 mg nifedipine daily. Stay on the 1 tablet. No changes in plan, labs at next visit 06/19/2025 Other malaise (ICD-10 - R53.81) See notes above about BP, will correct hypomagnesemia. Will review further cardiology testing 06/19/2025 Accelerated essential hypertension (ICD-10 - I10) Patient BP was low normal on arrival, was low normal at casting machine operator. Patient was told to cut down Nifedipine to 1 a day, will reevaluate in 2 weeks. 06/19/2025 Other fatigue (ICD-10 - R53.83) See notes above for malaise 02/22/2025 GERD without esophagitis (ICD-10 - K21.9) Stable on PPI 02/22/2025 Lymphedema of left lower extremity (ICD-10 - I89.0) Patient has been through lymphedema therapy at [facility] before, does not think it helped much. No changes 06/19/2025 Hypomagnesemia (ICD-10 - E83.42) Hypomagnesemia discovered on lab work. Patient told to get Magnesium Citrate 400mg from store and take one a day to correct. will re-evaluate labs at later date. 06/19/2025 Chest pain syndrome (ICD-10 - R07.9) Multifactorial syndrome, is being evaluated by cardiology. Will continue to follow with cardiology and will re-assess in 2 weeks 02/22/2025 Accelerated essential hypertension (ICD-10 - I10) Consider changing from calcium channel jalil because of edema but this has been really good for patient so we will do strategy as above before changing 06/19/2025 Immunization(s) administered (ICD-10 - Z23) 06/19/2025 Encounter for immunization (ICD-10 - Z23) 06/19/2025 Medicare annual wellness visit, subsequent (ICD-10 - Z00.00) Patient doing well, memory intact (3 word exam successful), no falls, able to live independently and get around without difficulty. Pression screening negative. Reviewed HRA. Plan Of Treatment Pending Test Test Name Order Date Physical Therapy : Lymphedema 07/09/2024 Next Appt Details Provider Name:Prasanna De La Rosa, 09/02/2025 03:00:00 PM, [address], [place], [address], Insurance Providers Payer Name Payer Address Payer Phone Subscriber Number Group Number Insured Name Patient Relationship to Insured Coverage Start Date Coverage End Date [facility] [address] [address] [place] [address] [id number] Leora Guerrero Self - patient is the insured Medications [...]
--- OUTSIDE RECORDS SUMMARY | 2025-07-18 12:16 | XMS_ITS | Clinical Summary ---
Author Organization Healthcare Address [address] [place] [address] Care Team Providers Care Customer Experience Professional Name Role Phone Pcp, No Primary Care [...] place to sleep or slept in a mcc (including now)? No 08/18/2023 CAGE ASSESSMENT Answer [...] first t telma in the morning (EYE-DIRECTOR CARD) to steady your nerves or to get [...] UKY-Zoster Vaccines (2 of 3) 02/23/2017 12/29/2016 YRY-[id number]-61 Vaccine (4 - 2024- season) 2025 04/06/2022, [...] Adults <6.0% Children and Adolescents <7.5% Source: [place] [employer]. Standards of medical care in diabetes,2017. Diabetes Care.2017:40 (suppl 1):S1-S135. HbA1c assay performed by an ion-exchange chromatography method that is certified traceable to the DCCT. Mannie Suh MD LAB BLOOD ORDERABLES Final Resu lt [facility] [address] [place] [address] from Last 3 Months or Most Recently Relevant to Health Maintenance Insurance [address] [place] [address] MEDICARE Advance Directives Documents on File Type Date Recorded Patient Welfare Visitor Expl anation Power of Firer Low Pressure 08/23/2023 7:15 AM Advance Directives and Livin g Will 08/23/2023 7:15 AM * Full Code (Latest Code Status on File) Date Activated Date Inactivated Comments 08/16/2023 1:29 PM 08/20/2023 4:24 PM Question Answer Comments Patient has decision-making capacity? No Healthcare Surrogate: Adult child of the patient Care Teams Customer Experience Professional Relationship Specialty Start Date End Date Pcp, Thelma [address] [place] [address] PCP - General Family Medicine 08/16/23
[2025-07-18 12:53] LABS: Chloride 102 mmol/L (98-107); Potassium 4.0 mmoL/L (3.5-5.1); Sodium 136 mmol/L (136-145)
[2025-07-18 12:56] LABS: Anion Gap 8.0 mEq/L (5-15); Calcium 9.9 mg/dl (8.4-10.2); Carbon Dioxide 30 mmol/L (22.0-30.0); Glucose 90 mg/dl (74-100); Magnesium 1.8 mg/dl (1.6-2.3)
[2025-07-18 13:24] LABS: Blood Urea Nitrogen 17 mg/dl (7-17); Creatinine,Serum 0.70 mg/dl (0.52-1.04); Estimated Glomerular Filt Rate 80 ml/min (>60); GFR (African American) 97 ML/MIN (>60)
== END 2025-07-18 23:59 | disposition home or self-care (01) ==
LOC: LAB 12:13
PROVIDERS: PCP Internal Medicine Adolescent Medicine; Visit Provider Physician Assistant
DX: E78.5 Hyperlipidemia, unspecified (principal); I10 Essential (primary) hypertension
CPT/HCPCS: 36415; 80048; 83735